=== PATIENT | female | born 1990 | race Caucasian/White ===

== ENCOUNTER → 2018-02-07 16:49 | Outpatient (CLI) | payer MEDICAID, SELFPAY ==
[2018-02-07 17:50] LABS: Absolute Lymphocyte Count 1.96 X10^3/ul (0.83-4.51); Absolute Neutrophil Count 5.4 X10^3/uL (2.0-7.7); Basophil# 0.02 X10^3/uL; Basophil% 0.2 % (0-1); Eosinophil# 0.11 X10^3/uL; Eosinophils% 1.4 % (0-5); Hematocrit 38.5 % (37-47); Hemoglobin 13.7 g/dl (12.0-15.0); Lymphocyte # 1.96 X10^3/ul (4.0); Lymphocyte % 24.4 % (19-41); Mean Corp Hgb Conc 35.6 g/gl (32-36); Mean Corpuscular Hgb 31.5 pg (27.0-32.0); Mean Corpuscular Volume 88.5 fL (81-99); Mean Platelet Vol. 9.9 fl (6.2-12.0); Monocyte# 0.58 X10^3/uL; Monocyte% 7.2 % (0-10); Neutrophil # 5.35 X10^3/uL (2.7-7.7); Neutrophil % 66.7 % (47-70); Platelet Count 344 K/mm3 (150-450); RBC Distribution Width CV 12.2 % (11.6-14.6); RBC Distribution Width SD 38.3 fl (35.1-43.9); Red Blood Count 4.35 M/mm3 (4.2-5.4)
[2018-02-07 17:52] LABS: POSITIVE COUNT NO; POSITIVE DIFFERENTIAL NO; POSITIVE MORPHOLOGY NO
[2018-02-07 18:59] LABS: HIV - WCH Non-Reactive (Nonreactive)
[2018-02-07 21:35] LABS: Chlamydia Trachomatis by PCR Negative (Negative); Neisserai gonorrhoeae by PCR Negative (Negative); Probe Check PASS; Sample Adequacy Control PASS; Specimen Processing Control PASS
[2018-02-10 01:17] LABS: Rapid Plasmin Reagin (RPR) NONREACTIVE (NONREACTIVE)
[2018-02-10 09:30] LABS: HEPATITIS B SURFACE AG Negative (Negative)
[2018-02-14 13:12] LABS: HPV Reflexed? NOT INDICATED
== END ==
PROVIDERS: Family Provider Family Medicine; PCP Family Medicine; Referring Provider Obstetrics & Gynecology; Visit Provider Obstetrics & Gynecology
DX: Z12.4 Encounter for screening for malignant neoplasm of cervix (principal)
CPT/HCPCS: 36415; 85025; 86592; 86703; 86762; 86850; 86900; 87086; 87088; 87340; 87491; 87591; 88175; G0145

== ENCOUNTER → 2018-03-13 16:43 | Outpatient (CLI) | payer MEDICAID, SELFPAY | PROVIDERS: Family Provider Family Medicine; PCP Family Medicine; Referring Provider Obstetrics & Gynecology; Visit Provider Obstetrics & Gynecology | DX: Z34.90 Encounter for supervision of normal pregnancy, unspecified, unspecified trimester (principal) | CPT/HCPCS: 87086; 87088 ==

== ENCOUNTER 2018-06-09 15:45 | Outpatient (CLI) | payer MEDICAID, SELFPAY ==
[2018-05-31 08:52] VITALS: BMI 25.1
[2018-06-09 15:59] VITALS: BMI 27.2
[2018-06-09 16:14] LABS: Bacteria 0 SEEN /hpf (None Seen); Mucous, Urine 0 SEEN /hpf (<or=2+); White Blood Cells 0 SEEN /hpf (0-5)
[2018-06-09 16:20] LABS: Color, Urine Yellow (Yellow); Glucose, Dipstick Normal (Normal); Ketone-Dipstick Negative (Negative); Leukocyte Esterase-Dipstick Negative /ul (Negative); Nitrite-Dipstick Negative (Negative); Occult Blood-Urine 10 /ul (Negative); Protein-Dipstick Negative (Negative); Urine Bilirubin Dipstick Negative (Negative); Urine Clarity Clear (Clear); Urine Urobilinogen Normal (Normal); Urine pH 6.5 (5.0 - 8.0)
[2018-06-09 16:56] LABS: Hematocrit 36.1 % (37-47); Hemoglobin 12.9 g/dl (12.0-15.0); Mean Corp Hgb Conc 35.7 g/gl (32-36); Mean Corpuscular Hgb 32.6 pg (27.0-32.0); Mean Corpuscular Volume 91.2 fL (81-99); Mean Platelet Vol. 9.7 fl (6.2-12.0); Platelet Count 270 K/mm3 (150-450); RBC Distribution Width CV 13.1 % (11.6-14.6); RBC Distribution Width SD 42.3 fl (35.1-43.9); Red Blood Count 3.96 M/mm3 (4.2-5.4); White Blood Count 9.6 K/mm3 (4.4-11.0)
[2018-06-09 17:08] LABS: Scan Indicated on CBC? Y/N NO
[2018-06-09 17:18] LABS: ALB/GLOB Ratio 0.9 RATIO (0.9-2.4); AST(SGOT) 13 U/L (15-37); Alanine Aminotransfer ALT/SGPT 20 U/L (13-56); Albumin, Serum 3.1 g/dL (3.2-5.0); Alkaline Phosphatase 69 U/L (45-117); Anion Gap 9 (5-15); BUN 5 mg/dL (7-18); BUN/Creat Ratio 14.6 RATIO (10-20); Calcium,Total 8.3 mg/dL (8.5-10.1); Chloride 109 mmol/L (98-107); Creatinine, Serum 0.34 mg/dL (0.55-1.02); EST Glomerular Filtration Rate 241 mL/min (>60); Est Glom Filt Rate - Afr Amer 292 mL/min (>60); Estimated Creatinine Clearance 239.56 ml/min; Globulin 3.5 g/dL (2.2-4.2); Glucose 79 mg/dL (74-106); Potassium 3.6 mmol/L (3.5-5.1); Protein, Total 6.6 g/dL (6.4-8.2); Sodium Level 139 mmol/L (136-145)
[2018-06-09 17:29] LABS: Red Blood Cells-Urine 0-5 SEEN /hpf (0-5); Squamous Epithelial Cells - UA 0-5 SEEN /hpf (5-10)
--- NOTE | 2018-06-14 00:36 | OB.TRI.HP_ITS ---
- Problem List (1) Threatened labor Status: Acute History of Present Illness Date of Service: 06/09/18 Was patient seen by the physician?: No Reason For Visit: FALL History of Present Illness: threatened labor Allergies No Known Allergies Allergy (Verified 05/12/18 09:05) - Pertinent Past Medical History Surgical History: Past Surgical History (Last Reviewed 05/31/18 @ 08:52 by Sandra Schwartz) Hx of foot surgery Laboratory Studies: Laboratory Tests 06/09/18 06/09/18 06/09/18 Range/Units 16:45 16:45 15:55 WBC 9.6 (4.4-11.0) K/mm3 RBC 3.96 L (4.2-5.4) M/mm3 Hgb 12.9 (12.0-15.0) g/dl Hct 36.1 L (37-47) % MCV 91.2 (81-99) fL MCH 32.6 H (27.0-32.0) pg MCHC 35.7 (32-36) g/gl RDW 13.1 (11.6-14.6) % RDW Differential 42.3 (35.1-43.9) fl Plt Count 270 (150-450) K/mm3 MPV 9.7 (6.2-12.0) fl Sodium 139 (136-145) mmol/L Potassium 3.6 (3.5-5.1) mmol/L Chloride 109 H (98-107) mmol/L Carbon Dioxide 21.0 (21.0-32.0) mmol/L Anion Gap 9 (5-15) BUN 5 L (7-18) mg/dL Creatinine 0.34 L (0.55-1.02) mg/dL Estim Creat Clear Calc 239.56 ml/min Est GFR (MDRD) Af Amer 292 (>60) mL/min Est GFR (MDRD) Non-Af 241 (>60) mL/min BUN/Creatinine Ratio 14.6 (10-20) RATIO Glucose 79 (74-106) mg/dL Calcium 8.3 L (8.5-10.1) mg/dL Total Bilirubin 0.30 (0.20-1.00) mg/dL AST 13 L (15-37) U/L ALT 20 (13-56) U/L Alkaline Phosphatase 69 (45-117) U/L Total Protein 6.6 (6.4-8.2) g/dL Albumin 3.1 L (3.2-5.0) g/dL Globulin 3.5 (2.2-4.2) g/dL Albumin/Globulin Ratio 0.9 (0.9-2.4) RATIO Urine Color Yellow (Yellow) Urine Clarity Clear (Clear) Urine pH 6.5 (5.0 - 8.0) Ur Specific [place] 1.010 (1.002-1.030) Urine Protein Negative (Negative) mg/dl Urine Glucose (UA) Normal (Normal) mg/dl Urine Ketones Negative (Negative) mg/dl Urine Occult Blood 10 H (Negative) /ul Urine Nitrite Negative (Negative) Urine Bilirubin Negative (Negative) mg/dL Urine Urobilinogen Normal (Normal) mg/dl Ur Leukocyte Esterase Negative (Negative) /ul Urine RBC 0-5 SEEN (0-5) /hpf Urine WBC 0 SEEN (0-5) /hpf Ur Squamous Epith Cells 0-5 SEEN (5-10) /hpf Urine Bacteria 0 SEEN (None Seen) /hpf Urine Mucus 0 SEEN (<or=2+) /hpf NST - FHR Rate Baby A Baseline: 140 Variability:: Moderate Accelerations:: 10 x 10 Decelerations:: None NST Reactive:: Yes, Appropriate for gestational age FHR Category:: Category I Uterine Activity:: no regular Impression/Plan s/p fall threatened labor reassuring stable dc home
== END 2018-06-09 17:47 | disposition home or self-care (01) ==
LOC: WPOUT 15:52 → WP 15:52
PROVIDERS: Family Provider Family Medicine; PCP Family Medicine; Referring Provider Obstetrics & Gynecology; Visit Provider Obstetrics & Gynecology
DX: O60.00 Preterm labor without delivery, unspecified trimester (principal); Z3A.00 Weeks of gestation of pregnancy not specified; Z91.81 History of falling
CPT/HCPCS: 36415; 59025; 59050; 80053; 81001; 85027; 87086; 87088; 99218; G0378

== ENCOUNTER → 2018-07-05 10:14 | Outpatient (CLI) | payer MEDICAID, SELFPAY ==
[2018-07-05 09:51] VITALS: BMI 27.2
[2018-07-05 10:49] LABS: Absolute Lymphocyte Count 1.77 X10^3/ul (0.83-4.51); Absolute Neutrophil Count 6.6 X10^3/uL (2.0-7.7); Basophil# 0.01 X10^3/uL; Basophil% 0.1 % (0-1); Eosinophil# 0.11 X10^3/uL; Eosinophils% 1.2 % (0-5); Hematocrit 36.5 % (37-47); Hemoglobin 12.6 g/dl (12.0-15.0); Lymphocyte # 1.77 X10^3/ul (4.0); Lymphocyte % 19.6 % (19-41); Mean Corp Hgb Conc 34.5 g/gl (32-36); Mean Corpuscular Hgb 32.1 pg (27.0-32.0); Mean Corpuscular Volume 93.1 fL (81-99); Mean Platelet Vol. 9.8 fl (6.2-12.0); Monocyte# 0.49 X10^3/uL; Monocyte% 5.4 % (0-10); Neutrophil # 6.63 X10^3/uL (2.7-7.7); Neutrophil % 73.3 % (47-70); POSITIVE COUNT NO; POSITIVE DIFFERENTIAL NO; POSITIVE MORPHOLOGY NO; Platelet Count 239 K/mm3 (150-450); RBC Distribution Width CV 13.7 % (11.6-14.6); Red Blood Count 3.92 M/mm3 (4.2-5.4); White Blood Count 9.1 K/mm3 (4.4-11.0)
[2018-07-05 11:06] LABS: Glucose Challenge Gest 1H 50g 131 mg/dL (70-140)
== END ==
PROVIDERS: Family Provider Family Medicine; PCP Family Medicine; Referring Provider Obstetrics & Gynecology; Visit Provider Obstetrics & Gynecology
DX: Z34.90 Encounter for supervision of normal pregnancy, unspecified, unspecified trimester (principal)
CPT/HCPCS: 36415; 82950; 85025

== ENCOUNTER → 2018-08-29 18:07 | Outpatient (CLI) | payer MEDICAID, SELFPAY ==
[2018-08-29 08:41] VITALS: BMI 29.6
== END ==
PROVIDERS: Family Provider Family Medicine; PCP Family Medicine; Visit Provider Obstetrics & Gynecology
DX: Z34.03 Encounter for supervision of normal first pregnancy, third trimester (principal)
CPT/HCPCS: 87081

== ENCOUNTER 2018-09-15 21:40 | Outpatient (CLI) | payer MEDICAID, SELFPAY ==
[2018-09-12 08:54] VITALS: BMI 29.6
[2018-09-15 21:40] VITALS: BMI 29.7
--- NOTE | 2018-09-16 08:22 | OB.TRI.NOTE ---
History of Present Illness Date of Service: 09/15/18 Was patient seen by the physician?: No Reason For Visit: R/O LABOR Date of Service: 09/15/18 Final KIMBERLY: 09/19/18 Final KIMBERLY Source: US <20 weeks Gestational age: 39 Weeks and 4 Days History of Present Illness: Complaints of contractions. No signs of SROM. No bleeding. Good movement. 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 NST reassuring. Discharged and to return if contractions increase in intensity or has signs of SROM.
--- NOTE | 2018-09-16 08:25 | OB.TRI.HP_ITS ---
History of Present Illness Date of Service: 09/15/18 Was patient seen by the physician?: No Reason For Visit: R/O LABOR Date of Service: 09/15/18 Final KIMBERLY: 09/19/18 Final KIMBERLY Source: US <20 weeks Gestational age: 39 Weeks and 4 Days History of Present Illness: Complaints of contractions. No signs of SROM. No bleeding. Good movement. 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 NST reassuring. Discharged and to return if contractions increase in intensity or has signs of SROM.
== END 2018-09-15 23:40 | disposition home or self-care (01) ==
LOC: WPOUT 22:15 → OBT 22:17
PROVIDERS: Family Provider Family Medicine; PCP Family Medicine; Referring Provider Obstetrics & Gynecology; Visit Provider Obstetrics & Gynecology
DX: O26.893 Other specified pregnancy related conditions, third trimester (principal); N85.8 Other specified noninflammatory disorders of uterus; Z3A.39 39 weeks gestation of pregnancy
CPT/HCPCS: 59025; 59050; 99218; G0378

== ENCOUNTER 2018-09-17 01:55 | Inpatient (IN) | payer MEDICAID, SELFPAY ==
[2018-08-01 09:00] VITALS: BMI 27.2
[2018-09-17 02:22] VITALS: BMI 29.3
[2018-09-17] MEDS: Lactated Ringers 1,000 ML 50 ML IV ×2 (02:30→04:44)
[2018-09-17 02:54] LABS: Absolute Lymphocyte Count 1.72 X10^3/ul (0.83-4.51); Basophil# 0.02 X10^3/uL; Basophil% 0.1 % (0-1); Eosinophil# 0.08 X10^3/uL; Eosinophils% 0.5 % (0-5); Hematocrit 40.8 % (37-47); Hemoglobin 14.7 g/dl (12.0-15.0); Lymphocyte # 1.72 X10^3/ul (4.0); Lymphocyte % 10.3 % (19-41); Mean Corpuscular Volume 91.7 fL (81-99); Mean Platelet Vol. 10.6 fl (6.2-12.0); Monocyte# 0.87 X10^3/uL; Monocyte% 5.2 % (0-10); Neutrophil # 14.01 X10^3/uL (2.7-7.7); Neutrophil % 83.6 % (47-70); Platelet Count 277 K/mm3 (150-450); RBC Distribution Width CV 13.4 % (11.6-14.6); RBC Distribution Width SD 44.4 fl (35.1-43.9); Red Blood Count 4.45 M/mm3 (4.2-5.4); White Blood Count 16.8 K/mm3 (4.4-11.0)
[2018-09-17 02:56] LABS: POSITIVE COUNT NO; POSITIVE DIFFERENTIAL NO; POSITIVE MORPHOLOGY NO
--- NOTE | 2018-09-17 03:51 | PCM.HP.STD ---
Problem List (1) Active labor at term Status: Acute History of Present Illness Date of Admission: 09/17/18 Chief Complaint: Contractions The patient is a 28 year old F [admitted in active labor. Uncomplicated . GBS negative. 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 Lives: Spouse/ Significant Other Smoking Status: Former smoker Tobacco Use: Non-smoker Alcohol: None Drugs: None - *Family History Maternal Family History: Family History (Last Reviewed 09/12/18 @ 08:42 by Carmelina Schwartz) Mother Cancer Grandfather Heart disease Hypertension Paternal Family History: Family History (Last Reviewed 09/12/18 @ 08:42 by Carmelina Schwartz) Mother Cancer Grandfather Heart disease Hypertension Review of Systems Constitutional: Denies: Chills, Fever Cardiovascular: Denies: Chest Tightness Respiratory: Denies: Shortness of Breath Gastrointestinal: Denies: Abdominal Pain, Constipation, Diarrhea Genitourinary: Denies: Dysuria VTE Information - Inpt Only VTE Present on Admission: No Patient Problems: Active and Suspected Problems (Last Reviewed 09/12/18 @ 08:42 by Carmelina Schwartz) Active labor at term (Acute) Subjective: Uncomfortable with contractions. Objective: Afeb VSS CAT 1 FHR tracing - Physical Exam General: Alert, Oriented x3, Cooperative, No apparent distress Lungs: Clear to auscultation, Normal air movement Cardiovascular: Regular rate, Regular Rhythm Abdomen: Soft, Non Tender, Non-Distended, Gravid, Appropriate for Gestational Age Extremities: No edema Skin: No rashes Neurological: Neuro grossly intact Psych/Mental Status: Normal Affect Comment: CE 9cm 90 -1 Weight: 187 lb 9.814 oz Body Mass Index (BMI) 29.3 Laboratory Tests Past 24 Hrs 09/17/18 09/17/18 02:40 02:40 WBC 16.8 H RBC 4.45 Hgb 14.7 Hct 40.8 MCV 91.7 MCH 33.0 H MCHC 36.0 RDW 13.4 RDW Differential 44.4 H Plt Count 277 MPV 10.6 Immature Gran % (Auto) 0.300 Neut % (Auto) 83.6 H Lymph % (Auto) 10.3 L [place] % (Auto) 5.2 Eos % (Auto) 0.5 Baso % (Auto) 0.1 Absolute Neuts (auto) 14.0 H Absolute Lymphs (auto) 1.72 Total Counted Not Reportable Blood Type Pending Antibody Screen Pending Assessment/Plan All Active Problems (Last Reviewed 09/12/18 @ 08:42 by Carmelina Schwartz) Active labor at term (Acute) Supervision of normal (Acute) (Acute) Threatened labor (Resolved) Active labor at term (39w5d ega). AROM was performed with clear fluid noted. GBS negative. Reassuring FHR tracing. Expect .
--- NOTE | 2018-09-17 03:57 | HP.PCM_ITS ---
Problem List (1) Active labor at term Status: Acute History of Present Illness Date of Admission: 09/17/18 Chief Complaint: Contractions The patient is a 28 year old F [admitted in active labor. Uncomplicated . GBS negative. 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 Lives: Spouse/ Significant Other Smoking Status: Former smoker Tobacco Use: Non-smoker Alcohol: None Drugs: None - *Family History Maternal Family History: Family History (Last Reviewed 09/12/18 @ 08:42 by Carmelina Schwartz) Mother Cancer Grandfather Heart disease Hypertension Paternal Family History: Family History (Last Reviewed 09/12/18 @ 08:42 by Carmelina Schwartz) Mother Cancer Grandfather Heart disease Hypertension Review of Systems Constitutional: Denies: Chills, Fever Cardiovascular: Denies: Chest Tightness Respiratory: Denies: Shortness of Breath Gastrointestinal: Denies: Abdominal Pain, Constipation, Diarrhea Genitourinary: Denies: Dysuria VTE Information - Inpt Only VTE Present on Admission: No Patient Problems: Active and Suspected Problems (Last Reviewed 09/12/18 @ 08:42 by Carmelina Schwartz) Active labor at term (Acute) Subjective: Uncomfortable with contractions. Objective: Afeb VSS CAT 1 FHR tracing - Physical Exam General: Alert, Oriented x3, Cooperative, No apparent distress Lungs: Clear to auscultation, Normal air movement Cardiovascular: Regular rate, Regular Rhythm Abdomen: Soft, Non Tender, Non-Distended, Gravid, Appropriate for Gestational Age Extremities: No edema Skin: No rashes Neurological: Neuro grossly intact Psych/Mental Status: Normal Affect Comment: CE 9cm 90 -1 Weight: 187 lb 9.814 oz Body Mass Index (BMI) 29.3 Laboratory Tests Past 24 Hrs 09/17/18 09/17/18 02:40 02:40 WBC 16.8 H RBC 4.45 Hgb 14.7 Hct 40.8 MCV 91.7 MCH 33.0 H MCHC 36.0 RDW 13.4 RDW Differential 44.4 H Plt Count 277 MPV 10.6 Immature Gran % (Auto) 0.300 Neut % (Auto) 83.6 H Lymph % (Auto) 10.3 L [place] % (Auto) 5.2 Eos % (Auto) 0.5 Baso % (Auto) 0.1 Absolute Neuts (auto) 14.0 H Absolute Lymphs (auto) 1.72 Total Counted Not Reportable Blood Type Pending Antibody Screen Pending Assessment/Plan All Active Problems (Last Reviewed 09/12/18 @ 08:42 by Carmelina Schwartz) Active labor at term (Acute) Supervision of normal (Acute) (Acute) Threatened labor (Resolved) Active labor at term (39w5d ega). AROM was performed with clear fluid noted. GBS negative. Reassuring FHR tracing. Expect .
--- NOTE | 2018-09-17 04:00 | DCINST_ITS ---
Discharge Diet: No Restrictions Discharge Activity: Return to Normal Activity, No Restrictions, May Drive, May Shower Return to work on:: 11/06/18 May shower in (days): 0 May resume sexual activity in: 6 weeks Call your doctor if your incision/area has: Sudden Increased Bleeding, Foul Smelling Discharge Call your doctor if you observe: Fever of 101 or Higher, Inability to urinate, Inability to have a bowel movement, Using more than one pad per hour, Shortness of breath, Chest pain, Calf discomfort, Uncontrolled pain Cleanse incision/area with: Soap & Water Additional Instructions: If you experience any of the following, contact your healthcare provider. * Bleeding that soaks a pad every hour for 2 hours * Fever 100.4 or higher * Unrelieved incision or abdominal pain * Swelling, redness, discharge or bleeding from your incision or episiotomy site * Your incision begins to separate * Problems urinating (including inability to urinate or burning while urinating). * Visual changes * Severe headache * Flu-like symptoms * Pain or redness in one of both of your breasts * Pain, warmth, tenderness or swelling in your legs, especially the calf area * Frequent nausea and vomiting * Symptoms of depression or anxiety If you experience any of the following, call 911 or go to the nearest Emergency Room. * Chest pain * Problems breathing * Seizure activity * Partial or complete paralysis of a body part, slurred speech, weakness or drooping of the face, or a sudden inability to walk or hold your balance Allergies/Adverse Reactions: Allergies No Known Allergies Allergy (Verified 09/15/18 22:28) Medications to take at Discharge vitamin,calcium,rilrwhdf-ednn-zapsj acid tablet 1 tab PO DAILY 02/07/18 Ibuprofen 600 mg PO 4X/DAY #30 tab 09/17/18 The following prescriptions were given: Ibuprofen 600 mg PO 4X/DAY #30 tab Please Follow Up With: Alix Wisdom MD When: 6 weeks Primary Care Physician: Ángel Bolanos MD [Primary Care Provider] - Test Results: Test results from this visit will be discussed in further detail at your follow- up appointment, if applicable. Proposed Discharge Date: 09/19/18
[2018-09-17] MEDS: Oxytocin 10 UNITS/ML Vial IM (05:38)
--- NOTE | 2018-09-17 05:49 | PCM.OPRPT ---
Problem List (1) Active labor at term Status: Acute Vaginal Delivery Maternal Presentation: Active Labor 39w5d ega with active labor uncomplicated Amniotic Membrane Rupture Type: Artificial Rupture of Membrane time: 034 Amniotic Fluid Description: Clear Final KIMBERLY: 09/19/18 Final KIMBERLY Source: US <20 weeks Gestational age: 39 Weeks and 5 Days Date of Procedure: 09/17/18 Pre-Operative Diagnosis: Labor Post-Operative Diagnosis: same Surgery/ Procedure Performed: Spontaneous Vaginal Delivery Type of Anesthesia: None Description of Procedure: Progressed to FD then pushed for about one hour to deliver a live male without complication. There was a loose nuchal cord that was reduced at delivery. After delivery the mouth was suctioned. Delayed cord clamping was employed. The cord was clamped and cut. The placenta delivered spontaneously intact with a centrally located 3VC. The uterus contracted well. Inspection revealed a small posterior vaginal first degree tear. This was repaired under local anesthetic with 2-0 Vicryl. Presentation: Vertex Placental Delivery Description: Spontaneous Placenta Disposition: [facility] Percentage of Placenta Abruption: 0 Cord Vessel Description: 3 Vessels Nuchal Cord Compression: Without compression Cord Entanglement: Around neck x 1, loose Estimated Blood Loss: 200cc Infant A gender: Male (1 minute): 9 (5 minute): 9 Episiotomy Description: None Laceration: Midline, Vaginal Extension/lac, 1st degree Medications given after delivery: IV Pitocin Complications: None
[2018-09-17] MEDS: Ibuprofen 600 MG Tablet PO ×3 (06:16→20:25)
[2018-09-17 11:59] VITALS: BP 123/69; PULSE 111; RESP 16; TEMP 36.9; O2SAT 97
[2018-09-17 16:24] VITALS: BP 130/73; PULSE 109; RESP 16; TEMP 36.7; O2SAT 96
[2018-09-17] MEDS: Acetaminophen 500 MG Tablet 1000 MG PO (16:30)
[2018-09-17] MEDS: Prenatal Vits Tablet 1 TABLET PO (16:30)
[2018-09-17 20:26] VITALS: BP 135/79; PULSE 94; RESP 18; TEMP 36.6
[2018-09-17 23:48] VITALS: BP 128/73; PULSE 105; RESP 17; TEMP 36.7; O2SAT 97
[2018-09-18] MEDS: Ibuprofen 600 MG Tablet PO ×3 (03:24→17:18)
[2018-09-18] MEDS: Senna/Docusate Sodium 1 Tablet PO (03:24)
[2018-09-18 03:27] VITALS: BP 122/74; PULSE 82; RESP 15; TEMP 36.3; O2SAT 97
[2018-09-18 07:02] LABS: Hematocrit 36.2 % (37-47); Hemoglobin 12.5 g/dl (12.0-15.0); Mean Corp Hgb Conc 34.5 g/gl (32-36); Mean Corpuscular Hgb 32.3 pg (27.0-32.0); Mean Corpuscular Volume 93.5 fL (81-99); Mean Platelet Vol. 10.1 fl (6.2-12.0); Platelet Count 234 K/mm3 (150-450); RBC Distribution Width CV 13.6 % (11.6-14.6); RBC Distribution Width SD 46.4 fl (35.1-43.9); Red Blood Count 3.87 M/mm3 (4.2-5.4); Scan Indicated on CBC? Y/N NO; White Blood Count 11.6 K/mm3 (4.4-11.0)
[2018-09-18 08:30] VITALS: BP 127/80; PULSE 84; RESP 16; TEMP 36.5
[2018-09-18] MEDS: Prenatal Vits Tablet 1 TABLET PO (09:30)
[2018-09-18 14:00] VITALS: BP 127/72; PULSE 83; RESP 18; TEMP 36.6
--- NOTE | 2018-09-18 15:28 | PCM.PN.OB ---
Patient Problems: Active and Suspected Problems (Last Reviewed 09/12/18 @ 08:42 by Carmelina Schwartz) Active labor at term (Acute) Subjective: Patient without complaints. Tolerating diet well. Breast-feeding going well. Wants to stay until tomorrow. - Physical Exam Vital Signs Temp Pulse Resp BP Pulse Ox 98 F 83 18 127/72 H 97 09/18/18 14:00 09/18/18 14:00 09/18/18 14:00 09/18/18 14:00 09/18/18 03:27 Oxygen Delivery Method Room Air Weight: 187 lb 9.814 oz Body Mass Index (BMI) 29.3 Intake and Output for Last 24 Hours 09/16/18 09/17/18 09/18/18 23:59 23:59 23:59 Intake Total 1999 / 1999 Output Total 1000 / 1000 Balance 1000 / 1000 Laboratory Tests Past 24 Hrs 09/18/18 06:45 WBC 11.6 H RBC 3.87 L Hgb 12.5 Hct 36.2 L MCV 93.5 MCH 32.3 H MCHC 34.5 RDW 13.6 RDW Differential 46.4 H Plt Count 234 MPV 10.1 Medical Necessity - Tobacco Use Smoking Status: Former smoker Tobacco Use: Non-smoker Assessment/Plan All Active Problems (Last Reviewed 09/12/18 @ 08:42 by Carmelina Schwartz) Active labor at term (Acute) Supervision of normal (Acute) (Acute) Threatened labor (Resolved) Doing well day #1 status post routine spontaneous vaginal delivery. Continuing present care.
[2018-09-18 20:45] VITALS: BP 114/81; PULSE 87; RESP 16; TEMP 37.1; O2SAT 96
[2018-09-19] MEDS: Acetaminophen 500 MG Tablet 1000 MG PO (00:12)
[2018-09-19 02:20] VITALS: BP 125/84; PULSE 76; RESP 16; TEMP 36.3; O2SAT 98
[2018-09-19] MEDS: Prenatal Vits Tablet 1 TABLET PO (09:13)
[2018-09-19] MEDS: Ibuprofen 600 MG Tablet PO (09:13)
[2018-09-19 09:35] VITALS: BP 138/86; PULSE 86; RESP 14; TEMP 36.6; O2SAT 96
--- NOTE | 2018-09-19 09:49 | PCM.PN.OB ---
Patient Problems: Active and Suspected Problems (Last Reviewed 09/12/18 @ 08:42 by Carmelina Schwartz) Active labor at term (Acute) Subjective: doing well no complaints pain controlled no CP SOB N V ambulating well tolerating po lochia moderate, going well - Physical Exam General: Alert, Oriented x3 Vital Signs Temp Pulse Resp BP Pulse Ox 97.8 F 86 14 138/86 H 96 09/19/18 09:35 09/19/18 09:35 09/19/18 09:35 09/19/18 09:35 09/19/18 09:35 Oxygen Delivery Method Room Air Weight: 187 lb 9.814 oz Body Mass Index (BMI) 29.3 Intake and Output for Last 24 Hours 09/17/18 09/18/18 09/19/18 23:59 23:59 23:59 Intake Total 1999 / 1999 Output Total 1000 / 1000 Balance 1000 / 1000 Medical Necessity - Tobacco Use Smoking Status: Former smoker Tobacco Use: Non-smoker Assessment/Plan All Active Problems (Last Reviewed 09/12/18 @ 08:42 by Carmelina Schwartz) Active labor at term (Acute) Supervision of normal (Acute) (Acute) Threatened labor (Resolved) s/p PPD # 2 1. routine post delivery care 2. breast feeding- support given 3. rh positive 4. rubella immune
--- NOTE | 2018-09-26 16:32 | NURSING ---
Mother doing well on follow up phone call. States Clarisse Adam was mike
== END 2018-09-19 11:05 | disposition home or self-care (01) | DRG 560 ==
PROVIDERS: Admitting Provider Obstetrics & Gynecology; Family Provider Family Medicine; PCP Family Medicine; Referring Provider Obstetrics & Gynecology; Visit Provider Obstetrics & Gynecology
DX: O70.0 First degree perineal laceration during delivery (principal); O69.81X0 Labor and delivery complicated by cord around neck, without compression, not applicable or unspecified; Z3A.39 39 weeks gestation of pregnancy; Z37.0 Single live birth
CPT/HCPCS: 59025; 59050; 85025; 85027; 86850; 86900; 99218; J7120; G0378

== ENCOUNTER 2018-12-04 04:02 | Observation (INO) | payer OTHER, MEDICAID, SELFPAY ==
[2018-11-01 14:59] VITALS: BMI 29.3
[2018-12-04 04:02] VITALS: BP 138/72; PULSE 91; RESP 18; TEMP 36.9; O2SAT 98; BMI 24.8
--- NOTE | 2018-12-04 04:27 | ED.VIS.GEN ---
History of Present Illness Chief Complaint: Abd Pain Informant: Patient Narrative: Patient stated for the last 2 days on and off she had right upper quadrant abdominal pain. She is also had nausea and vomiting. She is never had any problems like this before. Current severity is moderate. Worsened by eating. She had a baby 6 weeks ago. She is having no complications from that. She is no longer having any bleeding. She has no lower abdominal or vaginal type pain. No home treatment. Normal bowel movements. No urinary symptoms. It hurts to push on her right upper abdomen per patient. Past Medical History - Allergies and Home Meds Allergies/Adverse Reactions: Allergies No Known Allergies Allergy (Verified 11/01/18 14:39) Primary Care Physician: Ángel Bolanos MD [Primary Care Provider] - Prior records reviewed: Yes Past Medical History: - - Hyperthyroid Surgical History: no surgical history, noncontributory Smoking Status: Former smoker Alcohol: None Drugs: None Review of Systems General: Denies: Chills, Fever, Sweats Eyes: Denies: Visual changes - bilaterally, Diplopia ENT: Denies: Rhinorrhea, Sore throat Cardiovascular: Denies: Chest pain, Palpitations Respiratory: Denies: Dyspnea, Cough, Dyspnea on exertion Gastrointestinal: Reports: Abdominal pain, Nausea, Vomiting. Denies: Diarrhea, Melena, Hematochezia Genitourinary: Denies: Dysuria, Hematuria, Frequency Musculoskeletal: Denies: Back pain, Extremity Pain Skin: Denies: Rash, Wounds Neurological: Denies: Headache, Weakness, Numbness Physical Exam Vital Signs/Narrative: Vital Signs Temp Pulse Resp BP Pulse Ox 12/04/18 04:02 98.5 F 91 18 138/72 H 98 General: Well nourished, Well developed, No Acute Distress Head: Normocephalic, Atraumatic Eyes: Perrl, EOMI ENT: Moist mucous membranes, No rhinorrhea Neck: Supple, Nontender Cardiovascular: Regular rate, Regular rhythm, No murmurs Respiratory: No distress, CTA bilaterally, Chest nontender Abdomen: Soft, Nondistended, Normal bowel sounds, Tender - Tenderness in the right upper quadrant. No Rodrigues sign. Negative for: Nontender, Guarding, Rodrigues's sign Back: Nontender, Normal Inspection Extremities: Nontender, No edema Skin: Normal color, No rash Neurological: Alert, Oriented x3, Cranial nerves II-XII grossly intact, Normal Strength, Normal Sensation Psychological: Normal affect, Normal Mood Diagnostic/Tx/Re-eval - Medical Decision Making She given Toradol Zofran and IV fluids. Lab work obtained she felt better after treatment. Lab work is unremarkable. Patient will undergo an ultrasound in the a.m. This will be signed out to the a.m. physician for further evaluation. At this time I feel she has symptomatic cholelithiasis. ED Disposition - Plan for ED Patient: Referrals: Ángel Bolanos MD [Primary Care Provider] -
[2018-12-04] MEDS: Ondansetron 4 MG/2 ML Vial IV (04:33)
[2018-12-04] MEDS: 0.9% Normal Saline 1,000 ML 1000 ML IV (04:33)
[2018-12-04] MEDS: Ketorolac 30 MG/ML Syringe IV (04:33)
[2018-12-04 04:52] LABS: Absolute Lymphocyte Count 2.21 X10^3/uL (0.83-4.51); Absolute Neutrophil Count 5.8 X10^3/uL (2.0-7.7); Basophil# 0.02 X10^3/uL; Basophil% 0.2 % (0-1); Eosinophil# 0.15 X10^3/uL; Eosinophils% 1.7 % (0-5); Hematocrit 40.6 % (37-47); Hemoglobin 14.2 g/dL (12.0-15.0); Lymphocyte # 2.21 X10^3/ul (4.0); Lymphocyte % 24.9 % (19-41); Mean Corpuscular Hgb 30.6 pg (27.0-32.0); Mean Corpuscular Volume 87.5 fL (81-99); Monocyte# 0.66 X10^3/uL; Monocyte% 7.4 % (0-10); NRBC Flagged by Analyzer 0 % (0-5); Neutrophil # 5.79 X10^3/uL (2.7-7.7); Neutrophil % 65.5 % (47-70); Platelet Count 347 K/mm3 (150-450); RBC Distribution Width CV 11.7 % (11.6-14.6); RBC Distribution Width SD 37.2 fl (35.1-43.9); Red Blood Count 4.64 M/mm3 (4.2-5.4); White Blood Count 8.9 K/mm3 (4.4-11.0)
[2018-12-04 05:04] LABS: ALB/GLOB Ratio 1.2 RATIO (0.9-2.4); AST(SGOT) 45 U/L (15-37); Alanine Aminotransfer ALT/SGPT 39 U/L (13-56); Albumin, Serum 3.6 g/dL (3.2-5.0); Alkaline Phosphatase 76 U/L (45-117); Anion Gap 10 (5-15); BUN 12 mg/dL (7-18); BUN/Creat Ratio 21.2 RATIO (10-20); Calcium,Total 9.3 mg/dL (8.5-10.1); Chloride 106 mmol/L (98-107); Creatinine, Serum 0.57 mg/dL (0.55-1.02); EST Glomerular Filtration Rate 135 mL/min (>60); Est Glom Filt Rate - Afr Amer 163 mL/min (>60); Estimated Creatinine Clearance 142.89 ml/min; Globulin 3.1 g/dL (2.2-4.2); Glucose 93 mg/dL (74-106); Lipase 98 U/L (73-393); Potassium 3.9 mmol/L (3.5-5.1); Protein, Total 6.7 g/dL (6.4-8.2); Sodium Level 143 mmol/L (136-145)
--- NOTE | 2018-12-04 05:14 | US_ITS ---
STUDY: ABDOMINAL ULTRASOUND - RIGHT UPPER QUADRANT REASON FOR VISIT: Female, 28 years old. Right upper quadrant pain, nausea TECHNIQUE: Ultrasound evaluation of the right upper quadrant was performed with real-time and static llanos-scale imaging. TECHNICAL QUALITY: Adequate. COMPARISON: None. FINDINGS: Liver: The liver measures 16.3 cm. There is normal echogenicity of the liver. The bile ducts are within normal limits. There is hepatic color flow. The direction of portal flow is hepatopetal. There is no demonstrated mass lesion. Gallbladder: Normal distended gallbladder. The gallbladder wall measures 2 mm. There is a positive sonographic Rodrigues's sign. There is pericholecystic fluid. There is a solitary gallstone within the fundus of the gallbladder. Common Bile Duct (C.B.D.): The common bile duct measures 7 mm. Pancreas: Normal size of the head, body and tail of the pancreas. There is normal echogenicity of the pancreas. There is no demonstrated pancreatic mass or cyst. Right Kidney: Normal size of the right kidney. The right kidney measures 11.5 x 5.8 x 4.0 cm. Normal renal cortex. The right cortex measures 1. cm. There is no demonstrated renal mass or cyst. There is no right hydronephrosis. 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 Findings are suspicious for cholecystitis. Surgical consultation recommended along with lab correlation Remaining solid organs of the right upper quadrant are unremarkable Electronically Signed: Jase Galeana MD at 7:45 EDT , Service support ,
[2018-12-04 06:27] VITALS: BP 109/60; PULSE 85; RESP 18; O2SAT 96
--- NOTE | 2018-12-04 07:57 | ED.DCSUM_ITS ---
- ER Visit Summary Date of Service: 12/04/18 Chief Complaint: [Addendum to initial dictation] History of Present Illness: The patient is a 28 F [presented to the emergency department with abdominal pain and was seen by Dr. Giorgi Cantu who returned the patient over to me awaiting results of ultrasound of the right upper quadrant. Patient had pain after eating and describes pain underneath her right ribs. Patient delivered a baby 2-1/2 months ago.] Physical Examination: [] Test Results: [Ultrasound shows cholelithiasis with gallbladder wall thickening, pericholecystic fluid, biliary dilatation, and positive Rodrigues sign. Findings are suspicious for cholecystitis. Surgical consultation recommended.] Emergency Department Course and Treatment: [Patient currently rates her pain a 2 out of 10. Patient case was discussed with surgeon on-call Dr. Sd Mathews who will present to the emergency department to evaluate patient.] Treatment Plan: [Admit for surgical intervention] Disposition: [Admit] Impression: [Abdominal pain Cholecystitis] This note was generated with [employer] dictation software. It may contain incorrect words, spelling, and punctuation that were not noted in review of the chart prior to signing ED Disposition - Plan for ED Patient: Referrals: Ángel Bolanos MD [Primary Care Provider] -
--- NOTE | 2018-12-04 08:47 | NURSING ---
MED SURG OBS ABD PAIN, CHOLECYSTITIS CECE
[2018-12-04 09:15] VITALS: BMI 24.8
--- NOTE | 2018-12-04 09:21 | PCM.HP.STD ---
Problem List (1) Acute calculous cholecystitis Status: Acute History of Present Illness Date of Admission: 12/04/18 Chief Complaint: Right upper quadrant pain, nausea, vomiting The patient is a 28 year old F who presented with 5 day history of intermittent right upper quadrant pain. Patient stated she had intermittent RUQ pain since Tuesday last week. She noted around 2:30 pm on Tuesday she started having nausea and vomiting an hour after eating a deli sandwich, chips, and cupcakes. Patient also noted having RUQ pain. She noted after several hours this had resolved. She noted on Tuesday she ate breakfast and lunch and around 2:30 pm yesterday she had similar symptoms of RUQ pain. She noted abdominal pain continued intermittently. Patient noted she went to sleep around 9:00 pm and woke up around 2:00 AM with nausea, vomiting and abdominal pain in the RUQ. She then proceeded to come to the ED. She denies change in bowel habits. She notes recently was diagnosed with hyperthyroidism and started treatment 1 week ago. She thought the medication was causing abdominal pain so she stopped. She is also taking and vitamin D daily. She recently had a baby 2 1/2 months ago. Delivery was uncomplicated vaginally. Patient is currently nursing. She denies previous abdominal surgeries. She notes history of foot surgery. She is a former smoker. RUQ u/s was obtained demonstrating cholelithiasis, wall thickening and pericholecystic fluid. WBC is 8.9 and liver enzymes all within normal range. 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 Lives: With Family Smoking Status: Former smoker Alcohol: None Drugs: None - *Family History Maternal Family History: Family History (Last Reviewed 12/04/18 @ 09:42 by Barby Tobin PA-C) Mother Cancer Grandfather Heart disease Hypertension History Items: No pertinent history Paternal Family History: Family History (Last Reviewed 12/04/18 @ 09:42 by Barby Tobin PA-C) Mother Cancer Grandfather Heart disease Hypertension History Items: No pertinent history Review of Systems Constitutional: Reports: Anorexia HEENT: Denies: Head Aches, Sinus Congestion, Sinus Drainage Cardiovascular: Denies: Chest Pain, Palpitations Respiratory: Denies: Cough, Shortness of breath at rest, Sputum production Gastrointestinal: Reports: Abdominal Pain, Nausea, Vomiting Genitourinary: Denies: Dysuria Musculoskeletal: Denies: Joint Pain, Joint Tenderness Skin: Denies: Rash, Wounds Neurological: Denies: Numbness, Tingling, Focal weakness Psychiatric: Denies: Anxiety, Depression, Homicidal Ideations, Suicidal Ideations Hematologic/ Lymphatic: Denies: Easy Bruising, Easy Bleeding VTE Information - Inpt Only VTE Present on Admission: Yes Patient Problems: Active and Suspected Problems (Last Reviewed 11/01/18 @ 14:39 by Flori Lackey) Acute calculous cholecystitis (Acute) - Physical Exam General: Alert, Oriented x3, Cooperative HEENT: Atraumatic, PERRLA, EOMI, Normocephalic Neck: Supple, No JVD, Negative Carotid Bruits Lungs: Clear to auscultation, Normal air movement Cardiovascular: Regular rate, No murmurs Abdomen: Soft, Hypoactive Bowel Sounds, Tender - RUQ Extremities: No edema, Capillary Refill Less than 3 Seconds Skin: No rashes, No breakdown Musculoskeletal: No Tenderness to Palpation of Joints or Extremities Neurological: Neuro grossly intact Psych/Mental Status: Normal Affect, Appropriate Vital Signs Temp Pulse Resp BP Pulse Ox 98.5 F 85 18 109/60 96 12/04/18 04:02 12/04/18 06:27 12/04/18 06:27 12/04/18 06:27 12/04/18 06:27 Oxygen Delivery Method Room Air Weight: 158 lb 8.198 oz Body Mass Index (BMI) 24.8 Laboratory Tests Past 24 Hrs 12/04/18 12/04/18 04:07 04:07 WBC 8.9 RBC 4.64 Hgb 14.2 Hct 40.6 MCV 87.5 MCH 30.6 MCHC 35.0 RDW Std Deviation 37.2 RDW Coeff of Nick 11.7 Plt Count 347 MPV 10.0 Immature Gran % (Auto) 0.300 Neut % (Auto) 65.5 Lymph % (Auto) 24.9 [place] % (Auto) 7.4 Eos % (Auto) 1.7 Baso % (Auto) 0.2 Absolute Neuts (auto) 5.8 Absolute Lymphs (auto) 2.21 Absolute Nucleated RBC 0.00 Nucleated RBC % 0 Sodium 143 Potassium 3.9 Chloride 106 Carbon Dioxide 27.0 Anion Gap 10 BUN 12 Creatinine 0.57 Estim Creat Clear Calc 142.89 Est GFR (MDRD) Af Amer 163 Est GFR (MDRD) Non-Af 135 BUN/Creatinine Ratio 21.2 H Glucose 93 Calcium 9.3 Total Bilirubin 0.60 AST 45 H ALT 39 Alkaline Phosphatase 76 Total Protein 6.7 Albumin 3.6 Globulin 3.1 Albumin/Globulin Ratio 1.2 Lipase 98 Assessment/Plan All Active Problems (Last Reviewed 11/01/18 @ 14:39 by Flori Lackey) Active labor at term (Acute) Acute calculous cholecystitis (Acute) Supervision of normal (Acute) (Acute) Threatened labor (Resolved) I am seeing this patient in conjunction with Dr. Mathews. Impression: Acute cholecystitis Plan: Patient has been discussed with Dr. Mathews. Admit patient. Dr. Mathews will plan to perform a laparoscopic cholecystectomy. Procedure will be scheduled for tomorrow afternoon. Procedure details, risks and benefits have been explained to the patient. Patient and her family have had the opportunity to ask and have questions answered. Patient verbally understands and agrees with the plan. Thank you for allowing us to participate in this patient's care. Code Visit Office Visits / Consults: [id number] IP Consult L3
[2018-12-04 09:35] VITALS: BP 121/58; PULSE 77; RESP 16; TEMP 36.6; O2SAT 100
[2018-12-04] MEDS: Lactated Ringers 1,000 ML 75 ML IV ×2 (10:53→22:35)
[2018-12-04 16:46] VITALS: BP 114/78; PULSE 77; RESP 16; TEMP 36.6; O2SAT 97
[2018-12-04 22:37] VITALS: BP 107/60; PULSE 97; RESP 16; TEMP 36.7; O2SAT 98
[2018-12-05] VITALS (11 sets, daily range): BP systolic 107–137; BP diastolic 48–92; PULSE 63–93; RESP 16–18; TEMP 36.4–36.8; O2SAT 92–100; BMI 24.8
[2018-12-05 06:03] LABS: Absolute Lymphocyte Count 2.15 X10^3/uL (0.83-4.51); Absolute Neutrophil Count 1.6 X10^3/uL (2.0-7.7); Basophil# 0.01 X10^3/uL; Basophil% 0.2 % (0-1); Eosinophil# 0.15 X10^3/uL; Eosinophils% 3.6 % (0-5); Hematocrit 34.4 % (37-47); Hemoglobin 11.8 g/dL (12.0-15.0); Lymphocyte # 2.15 X10^3/ul (4.0); Lymphocyte % 51.6 % (19-41); Mean Corp Hgb Conc 34.3 g/dL (32-36); Mean Corpuscular Hgb 29.8 pg (27.0-32.0); Mean Corpuscular Volume 86.9 fL (81-99); Mean Platelet Vol. 9.8 fl (6.2-12.0); Monocyte% 7.2 % (0-10); NRBC Flagged by Analyzer 0 % (0-5); Neutrophil # 1.55 X10^3/uL (2.7-7.7); Neutrophil % 37.2 % (47-70); Platelet Count 243 K/mm3 (150-450); RBC Distribution Width CV 11.7 % (11.6-14.6); Red Blood Count 3.96 M/mm3 (4.2-5.4); White Blood Count 4.2 K/mm3 (4.4-11.0)
[2018-12-05 06:18] LABS: ALB/GLOB Ratio 1.1 RATIO (0.9-2.4); AST(SGOT) 45 U/L (15-37); Alanine Aminotransfer ALT/SGPT 93 U/L (13-56); Alkaline Phosphatase 72 U/L (45-117); Anion Gap 7 (5-15); BUN 8 mg/dL (7-18); BUN/Creat Ratio 21.5 RATIO (10-20); Calcium,Total 8.8 mg/dL (8.5-10.1); Chloride 110 mmol/L (98-107); Creatinine, Serum 0.37 mg/dL (0.55-1.02); EST Glomerular Filtration Rate 219 mL/min (>60); Est Glom Filt Rate - Afr Amer 265 mL/min (>60); Estimated Creatinine Clearance 220.13 ml/min; Globulin 2.7 g/dL (2.2-4.2); Glucose 82 mg/dL (74-106); Potassium 3.8 mmol/L (3.5-5.1); Protein, Total 5.7 g/dL (6.4-8.2); Sodium Level 145 mmol/L (136-145)
[2018-12-05 07:04] LABS: Thyroid Stim Hormone (TSH) < 0.01 uIU/mL (0.358-3.74)
[2018-12-05 07:46] LABS: Internal QC Validated? YES +Cl - CLEAR BKGD; Pregnancy, Urine Negative Negative
--- NOTE | 2018-12-05 11:20 | NURSING ---
report called to surgery
--- NOTE | 2018-12-05 12:35 | GALL_PTH ---
PATIENT: PAM CASTRO LOC: MS3 U#:[id number] AGE/SX: 28/F ROOM: MS325 RE12/04/[address]: Dr. Sd Mathews MD : 1990 BED: 1 DIS: 12/05/2018 SPEC #: [id number] RECD: 12/06/18 07:54 STATUS: CHERYL REFuentes #: [id number] MAJO: 12/05/18 12:[address]: Sd Mathews DEPT: SURGICAL PATHOLOGY RECD BY: Alessandro Everett ENTERED: 12/06/18 11:14 SP TYPE: MONALISA OSEGUERA DR: Dr. Ángel Bolanos MD Tissues: Gallbladder, NOS Procedures: Surgery Specimen Level III HEADER OPERATION: Laparoscopic cholecystectomy PRE-OP DIAGNOSIS: Acute cholecystitis TISSUE SUBMITTED: Gallbladder MICROSCOPIC DIAGNOSIS Gallbladder, cholecystectomy: Chronic cholecystitis and cholelithiasis. A pericystic lymph node with reactive changes. SJ:rei 12/07/18 MICROSCOPIC DESCRIPTION Slides are reviewed. GROSS DESCRIPTION Received is one container labeled with the patient's name and designated gallbladder. The specimen consists of a gallbladder measuring 9 cm in length and up to 3 cm in diameter. The external surface is pink-adrian, smooth and glistening for the most part. Focally it is granular, hemorrhagic and contains cautery artifact. The gallbladder contains green-yellow mucoid bile and one ovoid, yellowish-brown stone at the fundus measuring 2 x 2 x 2 cm. The mucosa is bile-stained and without any mass lesions. The gallbladder wall measures up to 0.3 cm in thickness. Also present close to the cystic duct is an ovoid, adrian-pink nodule consistent with lymph node measuring 1 cm in greatest dimension. Drilling Foreman sections from the gallbladder and the cystic duct including one half of the lymph nodes are submitted in one cassette. / SJ:rei 12/06/18 TC:3 CPT: 98731
[2018-12-05] MEDS: Cefazolin 2 GM in 0.9% Normal Saline 100 ML IV (12:39)
--- NOTE | 2018-12-05 12:52 | OP.PCM_ITS ---
Problem List (1) Acute calculous cholecystitis Status: Acute Report of Operation Date of Procedure: 12/05/18 Pre-Operative Diagnosis: Acute calculus cholecystitis Post-Operative Diagnosis: Same Surgery/Procedure Performed:: Laparoscopic cholecystectomy Type of Anesthesia:: General Anesthesiologist: Noah Andujar Estimated Blood Loss (mL): < 25 cc Fluids Replaced: 600 cc LR Description of Procedure: Patient was brought in the operating room. Placed in the supine position. Under excellent general trach intubation the abdomen was sterilely prepped and draped in usual fashion. Local was injected infra umbilically. Dissection was carried down to the fascia. The fascia grasped with Bethesda. Varies needle was placed inside the abdomen. The abdomen was insufflated 15 torr. A 10/12 trocar was placed without difficulty. The patient was placed in head up and rotated to the left position. Subxiphoid #5 trocar was placed, and inferior to this another #5 trocar was placed, laterally a #5 trocar was placed. All these under direct visualization without injury to underlying structures. Fundus of the gallbladder was retracted in cephalad direction there is a slight tear near the falciform but no active bleeding was identified. I dissected out the cystic duct I placed hemoclips proximally and distally and ligated the duct identified the cystic artery placed hemoclips proximally distally and ligated the artery. Deliver the gallbladder from gallbladder bed with use of electrocautery there is no spillage of bile or stones. Irrigated the right upper quadrant good hemostasis was noted liver edge on the falciform looked stable and was not actively bleeding. Remove the trochars under direct visualization good hemostasis was noted close the fascia the umbilical port with a [id number]-[id number] of 0 Vicryl x2 skin incisions were closed with subcuticular stitches of 4-0 Monocryl Steri-Strips applied sterile dressings were applied the patient tolerated the procedure well. - Admit VTE Documentation VTE Present on Admission: No VTE Mechan Device Prophylaxis: SCD's VTE Pharm Prophylaxis ordered?: No Reason prophylaxis not ordered:: Treatment Not Indicated
[2018-12-05] MEDS: Bupivacaine Mpf 0.5% 30 ML VIAL (13:21)
--- NOTE | 2018-12-05 13:22 | DCINST_ITS ---
Discharge Diet: Light diet - advance as tolerated Discharge Activity: May Not Drive - for 2-3 days or while taking narcotic pain medications., - - Do not drive, work heavy equipment or sign legal documents for 24 hours. May shower in (days): 1 - with the bandage in place. Additional Activity Instructions:: Pain medication may cause nausea. You should typically eat light foods as you take your pain medications. Pain medication may also cause constipation. If this is a problem for you, please discuss with your doctor. Call your doctor if your incision/area has: Continuous Slow Oozing, Sudden Increased Bleeding, Increased Pain/ Swelling, Increased Redness, Foul Smelling Discharge Call your doctor if you observe: Fever of 101 or Higher Suture Line Care: Avoid Pulling/Pushing, Avoid Pinching/Bending Additional Dressing/Incision Instructions:: Leave operative bandaids on for 2 days. When you remove dressing, leave Steri-Strips on until your follow-up appointment, or until the Steri-Strips fall off on their own. Allergies/Adverse Reactions: Allergies No Known Allergies Allergy (Verified 11/01/18 14:39) Medications to take at Discharge vitamin,calcium,oouecqrn-eucc-kythq acid tablet 1 tab PO DAILY 02/07/18 Calcium Citrate/Vitamin D3 [Citracal + D Maximum Caplet] 1 ea PO DAILY 12/04/18 Methimazole 5 mg PO BID 12/04/18 Oxycodone HCl/Acetaminophen [Percocet 5/325] 1 - 2 tab PO Q4H PRN PRN 6 Days #30 tab 12/05/18 The following prescriptions were given: Oxycodone HCl/Acetaminophen [Percocet 5/325] 1 - 2 tab PO Q4H PRN PRN 6 Days #30 tab PRN Reason: Pain Prescription Printed Primary Care Physician: Ángel Bolnaos MD [Primary Care Provider] - Test Results: Test results from this visit will be discussed in further detail at your follow- up appointment, if applicable. Please Follow Up With: Sd Mathews MD - Please call [phone] to schedule an appointment. When: 7 days after your surgery.
[2018-12-05] MEDS: Lactated Ringers 1,000 ML 75 ML IV (14:30)
[2018-12-05] MEDS: Acetaminophen 325 MG Tablet 650 MG PO (15:31)
[2018-12-05] MEDS: oxyCODONE 5 MG Tablet PO (15:31)
[2018-12-05] MEDS: Ensure Clear 120 ML Liquid PO (17:19)
== END 2018-12-05 20:30 | disposition home or self-care (01) ==
LOC: ED 04:47 → MS3 09:31
PROVIDERS: Anesthesiology; Physician Assistant; Admitting Provider Surgery; Emergency Provider Emergency Medicine; Family Provider Family Medicine; PCP Family Medicine; Referring Provider Surgery; Visit Provider Surgery
PROC: (CPT 47562; principal; 2018-12-05 12:15)
DX: K80.12 Calculus of gallbladder with acute and chronic cholecystitis without obstruction (principal); Z87.891 Personal history of nicotine dependence; E05.90 Thyrotoxicosis, unspecified without thyrotoxic crisis or storm; Z79.899 Other long term (current) drug therapy
CPT/HCPCS: 00790; 47562; 36415; 76705; 80053; 81025; 83690; 84443; 85025; 88304; 96361; 96374; 96375; 99218; 99283; J7030; J7120; A4216; G0378; J2405

== ENCOUNTER → 2018-12-12 09:51 | Outpatient (CLI) | payer OTHER, SELFPAY ==
[2018-12-05 11:03] VITALS: BMI 24.8
[2018-12-12 11:54] LABS: Free T3 4.2 pg/mL (2.18-3.98); T4 Free Direct 1.38 ng/dL (0.76-1.46)
== END ==
PROVIDERS: Family Provider Family Medicine; PCP Family Medicine; Referring Provider Nurse Practitioner Adult Health; Visit Provider Nurse Practitioner Adult Health
DX: E05.00 Thyrotoxicosis with diffuse goiter without thyrotoxic crisis or storm (principal)
CPT/HCPCS: 36415; 84439; 84481

== ENCOUNTER → 2018-12-25 09:53 | Outpatient (CLI) | payer OTHER, SELFPAY ==
[2018-12-05 11:03] VITALS: BMI 24.8
[2018-12-25 11:36] LABS: Free T3 2.2 pg/mL (2.18-3.98)
== END ==
PROVIDERS: Nurse Practitioner Adult Health; Family Provider Family Medicine; PCP Family Medicine; Referring Provider Internal Medicine Endocrinology, Diabetes & Metabolism; Visit Provider Internal Medicine Endocrinology, Diabetes & Metabolism
DX: E05.00 Thyrotoxicosis with diffuse goiter without thyrotoxic crisis or storm (principal)
CPT/HCPCS: 36415; 84439; 84481

== ENCOUNTER → 2019-01-09 16:44 | Outpatient (CLI) | payer OTHER, SELFPAY ==
[2018-12-05 11:03] VITALS: BMI 24.8
[2019-01-09 17:37] LABS: Free T3 2.3 pg/mL (2.18-3.98); T4 Free Direct 0.62 ng/dL (0.76-1.46)
== END ==
PROVIDERS: Family Provider Family Medicine; PCP Family Medicine; Referring Provider Internal Medicine Endocrinology, Diabetes & Metabolism; Visit Provider Internal Medicine Endocrinology, Diabetes & Metabolism
DX: E05.00 Thyrotoxicosis with diffuse goiter without thyrotoxic crisis or storm (principal)
CPT/HCPCS: 36415; 84439; 84481

== ENCOUNTER → 2019-02-05 17:13 | Outpatient (CLI) | payer OTHER, SELFPAY ==
[2018-12-05 11:03] VITALS: BMI 24.8
[2019-02-05 18:26] LABS: Free T3 2.4 pg/mL (2.18-3.98); T4 Free Direct 0.71 ng/dL (0.76-1.46)
== END ==
PROVIDERS: Family Provider Family Medicine; PCP Family Medicine; Referring Provider Internal Medicine Endocrinology, Diabetes & Metabolism; Visit Provider Internal Medicine Endocrinology, Diabetes & Metabolism
DX: E05.00 Thyrotoxicosis with diffuse goiter without thyrotoxic crisis or storm (principal)
CPT/HCPCS: 36415; 84439; 84481

== ENCOUNTER → 2019-03-01 16:42 | Outpatient (CLI) | payer OTHER, SELFPAY ==
[2018-12-05 11:03] VITALS: BMI 24.8
[2019-03-01 18:08] LABS: Vitamin D,25 Hydroxy 24.9 ng/mL (29.95-100.01)
[2019-03-01 18:09] LABS: ALB/GLOB Ratio 1.2 RATIO (0.9-2.4); AST(SGOT) 13 U/L (15-37); Alanine Aminotransfer ALT/SGPT 22 U/L (13-56); Albumin, Serum 4.1 g/dL (3.2-5.0); Alkaline Phosphatase 92 U/L (45-117); Anion Gap 6 (5-15); BUN 7 mg/dL (7-18); BUN/Creat Ratio 11.4 RATIO (10-20); Calcium,Total 8.7 mg/dL (8.5-10.1); Chloride 105 mmol/L (98-107); Creatinine, Serum 0.61 mg/dL (0.55-1.02); EST Glomerular Filtration Rate 123 mL/min (>60); Est Glom Filt Rate - Afr Amer 149 mL/min (>60); Free T3 2.8 pg/mL (2.18-3.98); Globulin 3.3 g/dL (2.2-4.2); Glucose 74 mg/dL (74-106); Potassium 3.7 mmol/L (3.5-5.1); Protein, Total 7.4 g/dL (6.4-8.2); Sodium Level 139 mmol/L (136-145); T4 Free Direct 0.79 ng/dL (0.76-1.46)
== END ==
PROVIDERS: Family Provider Family Medicine; PCP Family Medicine; Referring Provider Internal Medicine Endocrinology, Diabetes & Metabolism; Visit Provider Internal Medicine Endocrinology, Diabetes & Metabolism
DX: E05.00 Thyrotoxicosis with diffuse goiter without thyrotoxic crisis or storm (principal); E55.9 Vitamin D deficiency, unspecified
CPT/HCPCS: 36415; 80053; 82306; 84439; 84443; 84481

== ENCOUNTER → 2019-03-13 21:14 | Outpatient (CLI) | payer OTHER, SELFPAY ==
[2018-12-05 11:03] VITALS: BMI 24.8
[2019-03-13 22:15] LABS: Vitamin D,25 Hydroxy 23.2 ng/mL (29.95-100.01)
[2019-03-13 22:16] LABS: ALB/GLOB Ratio 1.1 RATIO (0.9-2.4); AST(SGOT) 20 U/L (15-37); Alanine Aminotransfer ALT/SGPT 28 U/L (13-56); Albumin, Serum 3.9 g/dL (3.2-5.0); Alkaline Phosphatase 91 U/L (45-117); Anion Gap 7 (5-15); BUN 7 mg/dL (7-18); BUN/Creat Ratio 9.9 RATIO (10-20); Chloride 107 mmol/L (98-107); Creatinine, Serum 0.71 mg/dL (0.55-1.02); EST Glomerular Filtration Rate 104 mL/min (>60); Est Glom Filt Rate - Afr Amer 126 mL/min (>60); Globulin 3.6 g/dL (2.2-4.2); Glucose 87 mg/dL (74-106); Potassium 3.5 mmol/L (3.5-5.1); Protein, Total 7.5 g/dL (6.4-8.2); Sodium Level 140 mmol/L (136-145); T4 Free Direct 0.89 ng/dL (0.76-1.46)
== END ==
PROVIDERS: Family Provider Family Medicine; PCP Family Medicine; Referring Provider Internal Medicine Endocrinology, Diabetes & Metabolism; Visit Provider Internal Medicine Endocrinology, Diabetes & Metabolism
DX: E05.00 Thyrotoxicosis with diffuse goiter without thyrotoxic crisis or storm (principal); E55.9 Vitamin D deficiency, unspecified
CPT/HCPCS: 36415; 80053; 82306; 84439; 84443; 84481

== ENCOUNTER → 2019-03-22 10:26 | Outpatient (CLI) | payer OTHER, SELFPAY ==
[2018-12-05 11:03] VITALS: BMI 24.8
[2019-03-22 12:09] LABS: Free T3 2.7 pg/mL (2.18-3.98); T4 Free Direct 0.92 ng/dL (0.76-1.46); Thyroid Stim Hormone (TSH) 7.53 uIU/mL (0.358-3.74)
== END ==
PROVIDERS: Family Provider Family Medicine; PCP Family Medicine; Referring Provider Nurse Practitioner Adult Health; Visit Provider Nurse Practitioner Adult Health
DX: E05.00 Thyrotoxicosis with diffuse goiter without thyrotoxic crisis or storm (principal)
CPT/HCPCS: 36415; 84439; 84443; 84481

== ENCOUNTER → 2019-04-20 09:19 | Outpatient (CLI) | payer OTHER, SELFPAY ==
[2018-12-05 11:03] VITALS: BMI 24.8
[2019-04-20 10:49] LABS: ALB/GLOB Ratio 1.3 RATIO (0.9-2.4); AST(SGOT) 13 U/L (15-37); Alanine Aminotransfer ALT/SGPT 20 U/L (13-56); Alkaline Phosphatase 79 U/L (45-117); Anion Gap 8 (5-15); BUN 7 mg/dL (7-18); BUN/Creat Ratio 10.9 RATIO (10-20); Calcium,Total 8.9 mg/dL (8.5-10.1); Chloride 109 mmol/L (98-107); Creatinine, Serum 0.64 mg/dL (0.55-1.02); EST Glomerular Filtration Rate 116 mL/min (>60); Est Glom Filt Rate - Afr Amer 141 mL/min (>60); Free T3 2.4 pg/mL (2.18-3.98); Globulin 3.1 g/dL (2.2-4.2); Glucose 87 mg/dL (74-106); Potassium 3.6 mmol/L (3.5-5.1); Protein, Total 7.1 g/dL (6.4-8.2); Sodium Level 143 mmol/L (136-145); T4 Free Direct 0.92 ng/dL (0.76-1.46); Thyroid Stim Hormone (TSH) 4.25 uIU/mL (0.358-3.74)
[2019-04-20 10:50] LABS: Vitamin D,25 Hydroxy 39.5 ng/mL (29.95-100.01)
== END ==
PROVIDERS: Family Provider Family Medicine; PCP Family Medicine; Referring Provider Nurse Practitioner Adult Health; Visit Provider Nurse Practitioner Adult Health
DX: E05.00 Thyrotoxicosis with diffuse goiter without thyrotoxic crisis or storm (principal); E55.9 Vitamin D deficiency, unspecified
CPT/HCPCS: 36415; 80053; 82306; 84439; 84443; 84481

== ENCOUNTER → 2019-06-01 16:52 | Outpatient (CLI) | payer OTHER, SELFPAY ==
[2018-12-05 11:03] VITALS: BMI 24.8
[2019-06-01 18:04] LABS: Free T3 2.8 pg/mL (2.18-3.98); T4 Free Direct 0.94 ng/dL (0.76-1.46)
== END ==
PROVIDERS: PCP Family Medicine; Referring Provider Internal Medicine Endocrinology, Diabetes & Metabolism; Visit Provider Internal Medicine Endocrinology, Diabetes & Metabolism
DX: E05.00 Thyrotoxicosis with diffuse goiter without thyrotoxic crisis or storm (principal)
CPT/HCPCS: 36415; 84439; 84443; 84481

== ENCOUNTER → 2019-06-22 09:49 | Outpatient (CLI) | payer OTHER, SELFPAY ==
[2018-12-05 11:03] VITALS: BMI 24.8
[2019-06-22 11:27] LABS: Free T3 3.1 pg/mL (2.18-3.98); T4 Free Direct 1.19 ng/dL (0.76-1.46); Thyroid Stim Hormone (TSH) 2.48 uIU/mL (0.358-3.74)
== END ==
PROVIDERS: PCP Family Medicine; Referring Provider Nurse Practitioner Adult Health; Visit Provider Nurse Practitioner Adult Health
DX: E05.00 Thyrotoxicosis with diffuse goiter without thyrotoxic crisis or storm (principal)
CPT/HCPCS: 36415; 84439; 84443; 84481

== ENCOUNTER → 2019-07-27 16:51 | Outpatient (CLI) | payer OTHER, SELFPAY ==
[2018-12-05 11:03] VITALS: BMI 24.8
[2019-07-27 18:11] LABS: AST(SGOT) 18 U/L (15-37); Alanine Aminotransfer ALT/SGPT 41 U/L (13-56); Albumin, Serum 3.5 g/dL (3.2-5.0); Alkaline Phosphatase 73 U/L (45-117); Anion Gap 4 (5-15); BUN 8 mg/dL (7-18); BUN/Creat Ratio 13.9 RATIO (10-20); Calcium,Total 8.7 mg/dL (8.5-10.1); Chloride 109 mmol/L (98-107); Creatinine, Serum 0.58 mg/dL (0.55-1.02); EST Glomerular Filtration Rate 132 mL/min (>60); Est Glom Filt Rate - Afr Amer 159 mL/min (>60); Free T3 2.7 pg/mL (2.18-3.98); Globulin 3.4 g/dL (2.2-4.2); Glucose 87 mg/dL (74-106); Potassium 3.7 mmol/L (3.5-5.1); Protein, Total 6.9 g/dL (6.4-8.2); Sodium Level 142 mmol/L (136-145); T4 Free Direct 1.27 ng/dL (0.76-1.46); Thyroid Stim Hormone (TSH) 1.67 uIU/mL (0.358-3.74)
[2019-07-28 07:33] LABS: Vitamin D,25 Hydroxy 55.1 ng/mL
== END ==
PROVIDERS: PCP Family Medicine; Referring Provider Nurse Practitioner Adult Health; Visit Provider Nurse Practitioner Adult Health
DX: E05.00 Thyrotoxicosis with diffuse goiter without thyrotoxic crisis or storm (principal); E55.9 Vitamin D deficiency, unspecified
CPT/HCPCS: 36415; 80053; 82306; 84439; 84443; 84481

== ENCOUNTER → 2019-10-23 14:42 | Outpatient (CLI) | payer OTHER, SELFPAY ==
[2018-12-05 11:03] VITALS: BMI 24.8
[2019-10-23 17:01] LABS: T4 Free Direct 1.18 ng/dL (0.76-1.46); Thyroid Stim Hormone (TSH) 2.02 uIU/mL (0.358-3.74)
== END ==
PROVIDERS: PCP Family Medicine; Visit Provider Internal Medicine Endocrinology, Diabetes & Metabolism
DX: E03.8 Other specified hypothyroidism (principal)
CPT/HCPCS: 36415; 84439; 84443

== ENCOUNTER → 2019-11-27 | Outpatient (CLI) | payer OTHER, SELFPAY ==
[2019-11-05 08:29] VITALS: BMI 24.8
[2019-11-27 15:13] LABS: Absolute Lymphocyte Count 1.98 X10^3/uL (0.83-4.51); Absolute Neutrophil Count 3.6 X10^3/uL (2.0-7.7); Basophil# 0.02 X10^3/uL; Basophil% 0.3 % (0-1); Eosinophil# 0.19 X10^3/uL; Eosinophils% 3.1 % (0-5); Hematocrit 42.5 % (37-47); Hemoglobin 14.9 g/dL (12.0-15.0); Lymphocyte # 1.98 X10^3/ul (4.0); Lymphocyte % 32.1 % (19-41); Mean Corp Hgb Conc 35.1 g/dL (32-36); Mean Corpuscular Hgb 32.1 pg (27.0-32.0); Mean Corpuscular Volume 91.6 fL (81-99); Mean Platelet Vol. 10.2 fl (6.2-12.0); Monocyte# 0.38 X10^3/uL; Monocyte% 6.2 % (0-10); NRBC Flagged by Analyzer 0 % (0-5); Neutrophil # 3.58 X10^3/uL (2.7-7.7); Neutrophil % 58.1 % (47-70); Platelet Count 302 K/mm3 (150-450); RBC Distribution Width CV 12.6 % (11.6-14.6); RBC Distribution Width SD 41.1 fl (35.1-43.9); Red Blood Count 4.64 M/mm3 (4.2-5.4); White Blood Count 6.2 K/mm3 (4.4-11.0)
[2019-11-27 15:28] LABS: ALB/GLOB Ratio 1.2 RATIO (0.9-2.4); AST(SGOT) 11 U/L (15-37); Alanine Aminotransfer ALT/SGPT 21 U/L (13-56); Alkaline Phosphatase 53 U/L (45-117); Anion Gap 7 (5-15); BUN 8 mg/dL (7-18); Calcium,Total 8.5 mg/dL (8.5-10.1); Chloride 107 mmol/L (98-107); Creatinine, Serum 0.62 mg/dL (0.55-1.02); EST Glomerular Filtration Rate 121 mL/min (>60); Est Glom Filt Rate - Afr Amer 147 mL/min (>60); Ferritin 44 ng/mL (8-252); Globulin 3.3 g/dL (2.2-4.2); Glucose 90 mg/dL (74-106); Potassium 3.5 mmol/L (3.5-5.1); Protein, Total 7.3 g/dL (6.4-8.2); Sodium Level 140 mmol/L (136-145)
[2019-11-29 14:29] LABS: Thyroid Peroxidase AB 290 IU/mL (0-34)
== END | disposition home or self-care (01) ==
LOC: MTLAB 12:02
PROVIDERS: PCP Family Medicine; Referring Provider Dermatology Pediatric Dermatology; Visit Provider Dermatology Pediatric Dermatology
DX: D64.9 Anemia, unspecified (principal); L63.8 Other alopecia areata
CPT/HCPCS: 36415; 80053; 82728; 85025; 86376

== ENCOUNTER → 2019-12-11 | Outpatient (CLI) | payer OTHER, SELFPAY ==
[2019-11-05 08:29] VITALS: BMI 24.8
[2019-12-11 13:41] LABS: T4 Free Direct 1.16 ng/dL (0.76-1.46); Thyroid Stim Hormone (TSH) 1.74 uIU/mL (0.358-3.74)
== END | disposition home or self-care (01) ==
LOC: LAB 12:20
PROVIDERS: Nurse Practitioner Adult Health; PCP Family Medicine
DX: E03.8 Other specified hypothyroidism (principal)
CPT/HCPCS: 36415; 84439; 84443

== ENCOUNTER → 2019-12-18 | Outpatient (CLI) | payer OTHER, SELFPAY ==
[2019-11-05 08:29] VITALS: BMI 24.8
[2019-12-18 16:35] LABS: Iron 117 ug/dL (50-170)
[2019-12-18 16:39] LABS: Vitamin B12 621 pg/mL (211-911)
== END | disposition home or self-care (01) ==
LOC: LAB 15:40
PROVIDERS: PCP Family Medicine; Referring Provider Internal Medicine Endocrinology, Diabetes & Metabolism; Visit Provider Internal Medicine Endocrinology, Diabetes & Metabolism
DX: D51.9 Vitamin B12 deficiency anemia, unspecified (principal); D50.9 Iron deficiency anemia, unspecified
CPT/HCPCS: 36415; 82607; 83540

== ENCOUNTER → 2020-02-04 | Outpatient (CLI) | payer OTHER, SELFPAY ==
[2019-11-05 08:29] VITALS: BMI 24.8
[2020-02-04 17:06] LABS: ALB/GLOB Ratio 1.4 RATIO (0.9-2.4); AST(SGOT) 5 U/L (15-37); Alanine Aminotransfer ALT/SGPT 20 U/L (13-56); Albumin, Serum 4.3 g/dL (3.2-5.0); Alkaline Phosphatase 56 U/L (45-117); Anion Gap 7 (5-15); BUN 10 mg/dL (7-18); BUN/Creat Ratio 16.2 RATIO (10-20); Calcium,Total 8.9 mg/dL (8.5-10.1); Chloride 107 mmol/L (98-107); Creatinine, Serum 0.62 mg/dL (0.55-1.02); EST Glomerular Filtration Rate 121 mL/min (>60); Est Glom Filt Rate - Afr Amer 147 mL/min (>60); Globulin 3.1 g/dL (2.2-4.2); Glucose 88 mg/dL (74-106); Potassium 3.7 mmol/L (3.5-5.1); Protein, Total 7.4 g/dL (6.4-8.2); Sodium Level 139 mmol/L (136-145); Thyroid Stim Hormone (TSH) 1.42 uIU/mL (0.358-3.74)
== END | disposition home or self-care (01) ==
PROVIDERS: PCP Family Medicine; Referring Provider Internal Medicine Endocrinology, Diabetes & Metabolism; Visit Provider Internal Medicine Endocrinology, Diabetes & Metabolism
DX: E03.8 Other specified hypothyroidism (principal); M85.89 Other specified disorders of bone density and structure, multiple sites
CPT/HCPCS: 36415; 80053; 84443

== ENCOUNTER → 2020-02-14 | Outpatient (CLI) | payer OTHER, SELFPAY ==
[2019-11-05 08:29] VITALS: BMI 24.8
[2020-02-14 11:40] LABS: Absolute Lymphocyte Count 2.48 X10^3/uL (0.83-4.51); Absolute Neutrophil Count 4.3 X10^3/uL (2.0-7.7); Basophil# 0.04 X10^3/uL; Basophil% 0.5 % (0-1); Eosinophil# 0.19 X10^3/uL; Eosinophils% 2.6 % (0-5); Hematocrit 45.2 % (37-47); Hemoglobin 15.7 g/dL (12.0-15.0); Lymphocyte # 2.48 X10^3/ul (4.0); Lymphocyte % 33.3 % (19-41); Mean Corp Hgb Conc 34.7 g/dL (32-36); Mean Corpuscular Hgb 31.7 pg (27.0-32.0); Mean Corpuscular Volume 91.1 fL (81-99); Mean Platelet Vol. 9.8 fl (6.2-12.0); Monocyte# 0.42 X10^3/uL; Monocyte% 5.6 % (0-10); NRBC Flagged by Analyzer 0 % (0-5); Neutrophil % 57.9 % (47-70); Platelet Count 378 K/mm3 (150-450); RBC Distribution Width CV 12.2 % (11.6-14.6); RBC Distribution Width SD 40.9 fl (35.1-43.9); Red Blood Count 4.96 M/mm3 (4.2-5.4); White Blood Count 7.4 K/mm3 (4.4-11.0)
[2020-02-14 12:07] LABS: Vitamin B12 517 pg/mL (211-911); Vitamin D,25 Hydroxy 73.6 ng/mL
[2020-02-14 12:50] LABS: Ferritin 48 ng/mL (8-252); Iron 101 ug/dL (50-170)
[2020-02-17 20:07] LABS: Testosterone, % Free 1.54 % (0.50-2.80); Testosterone, Free 0.43 ng/dL (0.10-0.85); Testosterone, Total 28 ng/dL (8-48)
== END | disposition home or self-care (01) ==
LOC: LAB 10:30
PROVIDERS: PCP Family Medicine; Referring Provider Internal Medicine Endocrinology, Diabetes & Metabolism; Visit Provider Internal Medicine Endocrinology, Diabetes & Metabolism
DX: E03.8 Other specified hypothyroidism (principal); E27.9 Disorder of adrenal gland, unspecified; E55.9 Vitamin D deficiency, unspecified; D50.9 Iron deficiency anemia, unspecified; D51.3 Other dietary vitamin B12 deficiency anemia
CPT/HCPCS: 36415; 82306; 82607; 82627; 82728; 82746; 83540; 84402; 84403; 85025; 82626

== ENCOUNTER → 2020-03-25 07:58 | Outpatient (CLI) | payer OTHER, SELFPAY ==
[2019-11-05 08:29] VITALS: BMI 24.8
[2020-03-25 09:05] LABS: Hemoglobin A1c 4.6 % (3.8-5.6)
[2020-03-26 12:07] LABS: RNP Ab <0.2 AI (0.0-0.9); Smith Ab <0.2 AI (0.0-0.9)
[2020-03-26 13:11] LABS: ANTINUCLEAR ANTIBODIES DIRECT Negative (Negative)
[2020-03-30 03:06] LABS: Cytoplasmic Ab (C-ANCA) <1:20 titer (Neg:<1:20); Immunoglobulin A 190 mg/dL (87-352); Immunoglobulin G 929 mg/dL (586-1602); Immunoglobulin M 59 mg/dL (26-217); PROEL- A/G Ratio 1.5 (0.7-1.7); PROEL- Albumin 3.9 g/dL (2.9-4.4); PROEL- Alpha-1 Globulin 0.2 g/dL (0.0-0.4); PROEL- Alpha-2 Globulin 0.7 g/dL (0.4-1.0); PROEL- Beta Globulin 0.7 g/dL (0.7-1.3); PROEL- Gamma Globulin 0.9 g/dL (0.4-1.8); PROEL- Globulin, Total 2.6 g/dL (2.2-3.9); PROEL- TOTAL PROTEIN 6.5 g/dL (6.0-8.5); Vitamin B1, Thiamine 187.6 nmol/L (66.5-200.0)
[2020-03-31 04:42] LABS: Copper, Serum or Plasma 109 ug/dL (72-166); Perinuclear Ab (P-ANCA) <1:20 titer (Neg:<1:20)
== END ==
PROVIDERS: PCP Family Medicine
DX: G62.9 Polyneuropathy, unspecified (principal)
CPT/HCPCS: 36415; 82525; 82784; 83036; 84165; 84425; 86038; 86235; 86256; 86334

== ENCOUNTER → 2020-05-13 13:57 | Outpatient (CLI) | payer OTHER, SELFPAY ==
[2019-11-05 08:29] VITALS: BMI 24.8
[2020-05-13 14:52] LABS: Vitamin D,25 Hydroxy 61.8 ng/mL
[2020-05-13 15:02] LABS: ALB/GLOB Ratio 1.3 RATIO (0.9-2.4); AST(SGOT) 10 U/L (15-37); Alanine Aminotransfer ALT/SGPT 18 U/L (13-56); Alkaline Phosphatase 54 U/L (45-117); Anion Gap 5 (5-15); BUN 7 mg/dL (7-18); BUN/Creat Ratio 11.7 RATIO (10-20); Calcium,Total 8.8 mg/dL (8.5-10.1); Chloride 107 mmol/L (98-107); EST Glomerular Filtration Rate 125 mL/min (>60); Est Glom Filt Rate - Afr Amer 151 mL/min (>60); Glucose 94 mg/dL (74-106); Potassium 3.4 mmol/L (3.5-5.1); Sodium Level 140 mmol/L (136-145); Thyroid Stim Hormone (TSH) 1.13 uIU/mL (0.358-3.74)
== END ==
PROVIDERS: PCP Family Medicine; Referring Provider Internal Medicine Endocrinology, Diabetes & Metabolism; Visit Provider Internal Medicine Endocrinology, Diabetes & Metabolism
DX: E03.8 Other specified hypothyroidism (principal); E55.9 Vitamin D deficiency, unspecified
CPT/HCPCS: 36415; 80053; 82306; 84443

== ENCOUNTER → 2020-05-29 08:02 | Outpatient (CLI) | payer OTHER, SELFPAY ==
[2019-11-05 08:29] VITALS: BMI 24.8
[2020-05-29 09:04] LABS: Vitamin D,25 Hydroxy 60.6 ng/mL
[2020-05-29 09:11] LABS: ALB/GLOB Ratio 1.2 RATIO (0.9-2.4); AST(SGOT) 8 U/L (15-37); Alanine Aminotransfer ALT/SGPT 18 U/L (13-56); Alkaline Phosphatase 51 U/L (45-117); Anion Gap 3 (5-15); BUN 11 mg/dL (7-18); BUN/Creat Ratio 18.9 RATIO (10-20); Calcium,Total 9.1 mg/dL (8.5-10.1); Chloride 109 mmol/L (98-107); Creatinine, Serum 0.58 mg/dL (0.55-1.02); EST Glomerular Filtration Rate 129 mL/min (>60); Est Glom Filt Rate - Afr Amer 157 mL/min (>60); Globulin 3.2 g/dL (2.2-4.2); Glucose 80 mg/dL (74-106); Protein, Total 7.2 g/dL (6.4-8.2); Sodium Level 140 mmol/L (136-145); Thyroid Stim Hormone (TSH) 1.52 uIU/mL (0.358-3.74)
== END ==
PROVIDERS: PCP Family Medicine; Referring Provider Internal Medicine Endocrinology, Diabetes & Metabolism; Visit Provider Internal Medicine Endocrinology, Diabetes & Metabolism
DX: E78.00 Pure hypercholesterolemia, unspecified (principal); E03.8 Other specified hypothyroidism; E55.9 Vitamin D deficiency, unspecified
CPT/HCPCS: 36415; 80053; 82306; 84443

== ENCOUNTER → 2020-06-11 08:08 | Outpatient (CLI) | payer OTHER, SELFPAY ==
[2019-11-05 08:29] VITALS: BMI 24.8
[2020-06-11 08:24] VITALS: BP 112/67; PULSE 81; RESP 16; TEMP 36.4; O2SAT 97; BMI 20.5
[2020-06-11 08:37] VITALS: BP 97/65; PULSE 75
[2020-06-11] MEDS: Cosyntropin 0.25 MG Vial IV (08:50)
[2020-06-11 10:00] VITALS: BP 110/67; PULSE 74
== END ==
PROVIDERS: PCP Family Medicine; Referring Provider Internal Medicine Endocrinology, Diabetes & Metabolism; Visit Provider Internal Medicine Endocrinology, Diabetes & Metabolism
DX: E27.9 Disorder of adrenal gland, unspecified (principal)
CPT/HCPCS: 96374; 82024; 82533; 82627; 82626; A4216; J0834

== ENCOUNTER → 2020-11-04 13:48 | Outpatient (CLI) | payer OTHER, SELFPAY ==
[2020-06-11 08:24] VITALS: BMI 20.5
[2020-11-04 16:45] LABS: ALB/GLOB Ratio 1.2 RATIO (0.9-2.4); AST(SGOT) 11 U/L (15-37); Alanine Aminotransfer ALT/SGPT 19 U/L (13-56); Alkaline Phosphatase 51 U/L (45-117); Anion Gap 7 (5-15); BUN 7 mg/dL (7-18); BUN/Creat Ratio 15.5 RATIO (10-20); Calcium,Total 8.6 mg/dL (8.5-10.1); Chloride 105 mmol/L (98-107); Creatinine, Serum 0.45 mg/dL (0.55-1.02); EST Glomerular Filtration Rate 173 mL/min (>60); Est Glom Filt Rate - Afr Amer 209 mL/min (>60); Globulin 3.2 g/dL (2.2-4.2); Glucose 59 mg/dL (74-106); Potassium 3.7 mmol/L (3.5-5.1); Protein, Total 7.2 g/dL (6.4-8.2); Sodium Level 141 mmol/L (136-145); Thyroid Stim Hormone (TSH) 2.63 uIU/mL (0.358-3.74)
== END ==
PROVIDERS: PCP Family Medicine; Visit Provider Internal Medicine Endocrinology, Diabetes & Metabolism
DX: E03.8 Other specified hypothyroidism (principal)
CPT/HCPCS: 36415; 80053; 84443

== ENCOUNTER → 2021-02-24 09:32 | Outpatient (CLI) | payer OTHER, SELFPAY ==
[2021-02-24 11:26] LABS: ALB/GLOB Ratio 1.2 RATIO (0.9-2.4); AST(SGOT) 10 U/L (15-37); Alanine Aminotransfer ALT/SGPT 20 U/L (13-56); Albumin, Serum 3.8 g/dL (3.2-5.0); Alkaline Phosphatase 44 U/L (45-117); Anion Gap 9 (5-15); BUN 7 mg/dL (7-18); BUN/Creat Ratio 12.6 RATIO (10-20); Calcium,Total 9.1 mg/dL (8.5-10.1); Chloride 105 mmol/L (98-107); Creatinine, Serum 0.56 mg/dL (0.55-1.02); EST Glomerular Filtration Rate 136 mL/min (>60); Est Glom Filt Rate - Afr Amer 164 mL/min (>60); Globulin 3.3 g/dL (2.2-4.2); Glucose 79 mg/dL (74-106); Potassium 3.8 mmol/L (3.5-5.1); Protein, Total 7.1 g/dL (6.4-8.2); Sodium Level 142 mmol/L (136-145); Thyroid Stim Hormone (TSH) 2.21 uIU/mL (0.358-3.74)
== END ==
PROVIDERS: PCP Family Medicine; Referring Provider Internal Medicine Endocrinology, Diabetes & Metabolism; Visit Provider Internal Medicine Endocrinology, Diabetes & Metabolism
DX: E03.8 Other specified hypothyroidism (principal)
CPT/HCPCS: 36415; 80053; 84443

== ENCOUNTER → 2021-04-02 15:05 | Outpatient (CLI) | payer OTHER, SELFPAY ==
[2021-04-02 16:18] LABS: T4 Free Direct 1.19 ng/dL (0.76-1.46); Thyroid Stim Hormone (TSH) 1.67 uIU/mL (0.358-3.74)
== END ==
PROVIDERS: PCP Family Medicine; Visit Provider Internal Medicine Endocrinology, Diabetes & Metabolism
DX: E03.8 Other specified hypothyroidism (principal)
CPT/HCPCS: 36415; 84439; 84443

== ENCOUNTER → 2021-05-11 14:41 | Outpatient (CLI) | payer OTHER, SELFPAY ==
[2021-05-11 14:59] LABS: Absolute Lymphocyte Count 1.34 X10^3/uL (0.83-4.51); Absolute Neutrophil Count 6.4 X10^3/uL (2.0-7.7); Basophil# 0.03 X10^3/uL; Basophil% 0.4 % (0-1); Eosinophil# 0.13 X10^3/uL; Eosinophils% 1.5 % (0-5); Hematocrit 37.9 % (37-47); Hemoglobin 13.7 g/dL (12.0-15.0); Lymphocyte # 1.34 X10^3/ul (0.83-4.51); Lymphocyte % 15.9 % (19-41); Mean Corp Hgb Conc 36.1 g/dL (32-36); Mean Corpuscular Hgb 32.2 pg (27.0-32.0); Mean Platelet Vol. 9.4 fl (6.2-12.0); Monocyte# 0.52 X10^3/uL; Monocyte% 6.2 % (0-10); NRBC Flagged by Analyzer 0 % (0-5); Neutrophil # 6.35 X10^3/uL (2.7-7.7); Neutrophil % 75.5 % (47-70); Platelet Count 311 K/mm3 (150-450); RBC Distribution Width CV 12.4 % (11.6-14.6); RBC Distribution Width SD 40.6 fl (35.1-43.9); Red Blood Count 4.26 M/mm3 (4.2-5.4); White Blood Count 8.4 K/mm3 (4.4-11.0)
[2021-05-11 16:03] LABS: HIV - WCH Non-Reactive (Nonreactive); Hepatitis B Surface Antigen Non-Reactive (Nonreactive); Hepatitis C Antibody Non-Reactive (Nonreactive); Rubella IgG Reactive (Nonreactive); Syphilis Antibodies Non-reactive
[2021-05-11 17:30] LABS: Amphetamine Urine VISTA NEGATIVE (<1000 ng/mL); Barbiturate Urine VISTA NEGATIVE (< 200 ng/mL); Benzodiazepine Urine VISTA NEGATIVE (< 200 ng/mL); Cocaine Urine VISTA NEGATIVE (< 300 ng/mL); Ecstacy Urine VISTA NEGATIVE (< 500 ng/mL); Methadone Urine VISTA NEGATIVE (< 300 ng/mL); PCP Urine VISTA NEGATIVE (< 25 ng/mL); THC Urine VISTA NEGATIVE (< 50 ng/mL); Vista UDS pH Range 6
[2021-05-13 22:06] LABS: Chlamydia By Nucleic Acid AMP Negative (Negative)
[2021-05-14 10:14] LABS: Gonococcus By Nucleic Acid AMP Negative (Negative)
[2021-05-14 11:01] LABS: HPV APTIMA, High Risk Negative (Negative)
== END ==
PROVIDERS: PCP Family Medicine; Referring Provider Obstetrics & Gynecology; Visit Provider Obstetrics & Gynecology
DX: Z34.90 Encounter for supervision of normal pregnancy, unspecified, unspecified trimester (principal)
CPT/HCPCS: 36415; 80307; 85025; 86703; 86762; 86780; 86803; 86850; 86900; 86901; 87086; 87088; 87340; 87491; 87591; 87624; 88175; G0145

== ENCOUNTER → 2021-05-12 14:46 | Outpatient (CLI) | payer OTHER, SELFPAY ==
[2021-05-12 15:27] LABS: T4 Free Direct 1.05 ng/dL (0.76-1.46); Thyroid Stim Hormone (TSH) 1.71 uIU/mL (0.358-3.74)
== END ==
PROVIDERS: PCP Family Medicine; Referring Provider Internal Medicine Endocrinology, Diabetes & Metabolism; Visit Provider Internal Medicine Endocrinology, Diabetes & Metabolism
DX: E03.8 Other specified hypothyroidism (principal)
CPT/HCPCS: 36415; 84439; 84443

== ENCOUNTER 2021-05-29 09:50 | Outpatient (CLI) | payer OTHER, SELFPAY ==
--- NOTE | 2021-05-29 09:57 | US_ITS ---
STUDY: FIRST TRIMESTER OBSTETRICAL ULTRASOUND REASON FOR EXAM: Female, 31 years old well being . Intermittent spotting. LMP: 03/01/2021. TECHNIQUE: Transabdominal TECHNICAL QUALITY: Adequate. PRIOR ULTRASOUND: None. FINDINGS: There is visualization of a single gestational sac in a normal intrauterine position. The mean sac diameter (MSD) measures 6.78 cm, indicating an estimated gestational age (EGA) of 13 weeks, 1 days. The gestational sac shape is within normal limits. There is no demonstrated yolk sac. There is visualization of the placenta. Posterior location. There is visualization of a live embryo. The crown-rump length (CRL) measures 7.21 cm, indicating an estimated gestational age (EGA) of 13 weeks, 2 days. There is demonstrated cardiac activity with a heart rate of 162 bpm. The estimated gestation age (EGA) by LMP is 12 weeks, 5 days. The estimated date of delivery (KIMBERLY) by LMP is 12/06/2021. The estimated gestation age (EGA) by US is 13 weeks, 1 days. The estimated date of delivery (KIMBERLY) by US is 12/03/2021. The uterus measures 12.4 cm x 11.1 cm x 9.5 cm. There is no demonstrated uterine fibroid. The cervix is closed. The right ovary measures 3.7 cm x 2.1 cm x 1.2 cm. There is no right ovarian cyst. There is no visualized right adnexal mass or complex lesion. The left ovary measures 2.3 cm x 2.1 cm x 1.6 cm. There is no left ovarian cyst. There is no visualized left adnexal mass or complex lesion. There is no fluid in the cul de sac. US/Init OB < 14Wks US IMPRESSION: Single live intrauterine gestation with a mean gestational age of 13 weeks and 1 day. Electronically Signed: Solitario Haynes MD at 12:03 EST , Service support ,
== END 2021-05-29 23:59 | disposition short-term general hospital (02) ==
PROVIDERS: PCP Family Medicine; Referring Provider Obstetrics & Gynecology; Visit Provider Obstetrics & Gynecology
DX: Z36.89 Encounter for other specified antenatal screening (principal)
CPT/HCPCS: 76801

== ENCOUNTER 2021-06-29 15:17 | Outpatient (CLI) | payer OTHER, SELFPAY ==
[2021-06-29 16:44] LABS: Vitamin D,25 Hydroxy 57.2 ng/mL
[2021-06-29 16:55] LABS: ALB/GLOB Ratio 0.9 RATIO (0.9-2.4); AST(SGOT) 13 U/L (15-37); Alanine Aminotransfer ALT/SGPT 21 U/L (13-56); Albumin, Serum 3.2 g/dL (3.2-5.0); Alkaline Phosphatase 43 U/L (45-117); Anion Gap 8 (5-15); BUN 5 mg/dL (7-18); BUN/Creat Ratio 13.5 RATIO (10-20); Calcium,Total 8.6 mg/dL (8.5-10.1); Chloride 106 mmol/L (98-107); Creatinine, Serum 0.37 mg/dL (0.55-1.02); EST Glomerular Filtration Rate 216 mL/min (>60); Est Glom Filt Rate - Afr Amer 261 mL/min (>60); Globulin 3.7 g/dL (2.2-4.2); Glucose 92 mg/dL (74-106); Potassium 3.4 mmol/L (3.5-5.1); Protein, Total 6.9 g/dL (6.4-8.2); Sodium Level 139 mmol/L (136-145); Thyroid Stim Hormone (TSH) 2.05 uIU/mL (0.358-3.74)
== END 2021-06-29 23:59 | disposition home or self-care (01) ==
LOC: LAB 15:18
PROVIDERS: PCP Family Medicine; Referring Provider Internal Medicine Endocrinology, Diabetes & Metabolism; Visit Provider Internal Medicine Endocrinology, Diabetes & Metabolism
DX: E03.8 Other specified hypothyroidism (principal); E55.9 Vitamin D deficiency, unspecified
CPT/HCPCS: 36415; 80053; 82306; 84443

== ENCOUNTER 2021-07-06 13:29 | Outpatient (CLI) | payer OTHER, SELFPAY ==
[2021-07-06 14:15] LABS: Anion Gap 7 (5-15); BUN 7 mg/dL (7-18); BUN/Creat Ratio 17.9 RATIO (10-20); Chloride 105 mmol/L (98-107); Creatinine, Serum 0.39 mg/dL (0.55-1.02); EST Glomerular Filtration Rate 202 mL/min (>60); Est Glom Filt Rate - Afr Amer 245 mL/min (>60); Glucose 87 mg/dL (74-106); Potassium 3.7 mmol/L (3.5-5.1); Sodium Level 137 mmol/L (136-145)
== END 2021-07-06 23:59 | disposition home or self-care (01) ==
LOC: PAVLAB 13:30
PROVIDERS: PCP Family Medicine; Referring Provider Internal Medicine Endocrinology, Diabetes & Metabolism; Visit Provider Internal Medicine Endocrinology, Diabetes & Metabolism
DX: E03.8 Other specified hypothyroidism (principal)
CPT/HCPCS: 36415; 80048

== ENCOUNTER 2021-08-17 11:57 | Outpatient (CLI) | payer OTHER, SELFPAY ==
[2021-08-17 12:26] LABS: Absolute Lymphocyte Count 1.56 X10^3/uL (0.83-4.51); Absolute Neutrophil Count 5.3 X10^3/uL (2.0-7.7); Basophil# 0.02 X10^3/uL; Basophil% 0.3 % (0-1); Eosinophil# 0.21 X10^3/uL; Eosinophils% 2.8 % (0-5); Hematocrit 38.3 % (37-47); Hemoglobin 13.6 g/dL (12.0-15.0); Lymphocyte # 1.56 X10^3/ul (0.83-4.51); Lymphocyte % 20.8 % (19-41); Mean Corp Hgb Conc 35.5 g/dL (32-36); Mean Corpuscular Hgb 33.1 pg (27.0-32.0); Mean Corpuscular Volume 93.2 fL (81-99); Mean Platelet Vol. 9.6 fl (6.2-12.0); Monocyte# 0.39 X10^3/uL; Monocyte% 5.2 % (0-10); NRBC Flagged by Analyzer 0 % (0-5); Neutrophil # 5.28 X10^3/uL (2.7-7.7); Neutrophil % 70.5 % (47-70); Platelet Count 254 K/mm3 (150-450); RBC Distribution Width CV 13.3 % (11.6-14.6); RBC Distribution Width SD 45.1 fl (35.1-43.9); Red Blood Count 4.11 M/mm3 (4.2-5.4); White Blood Count 7.5 K/mm3 (4.4-11.0)
[2021-08-17 13:12] LABS: Glucose Challenge Gest 1H 50g 168 mg/dL (70-140); Thyroid Stim Hormone (TSH) 1.89 uIU/mL (0.358-3.74)
== END 2021-08-17 23:59 | disposition home or self-care (01) ==
LOC: PAVLAB 11:58
PROVIDERS: PCP Family Medicine; Referring Provider Nurse Practitioner Adult Health; Visit Provider Obstetrics & Gynecology
DX: O99.280 Endocrine, nutritional and metabolic diseases complicating pregnancy, unspecified trimester (principal); E03.8 Other specified hypothyroidism
CPT/HCPCS: 36415; 82950; 84443; 85025

== ENCOUNTER 2021-08-19 09:43 | Outpatient (CLI) | payer OTHER, SELFPAY ==
[2021-08-19 10:52] LABS: Glucose GTT-Gestation. Fasting 90 mg/dL (<105)
[2021-08-19 11:52] LABS: Glucose GTT-Gestational 1 Hr 160 mg/dL (<190)
== END 2021-08-19 23:59 | disposition home or self-care (01) ==
LOC: LAB 09:44
PROVIDERS: PCP Family Medicine; Referring Provider Obstetrics & Gynecology; Visit Provider Obstetrics & Gynecology
DX: Z13.1 Encounter for screening for diabetes mellitus (principal)
CPT/HCPCS: 36415; 82951; 82952

== ENCOUNTER → 2021-10-28 | Outpatient (CLI) | payer OTHER, SELFPAY ==
[2021-10-28 16:08] LABS: Vitamin D,25 Hydroxy 55.3 ng/mL
[2021-10-28 16:18] LABS: ALB/GLOB Ratio 0.9 RATIO (0.9-2.4); AST(SGOT) 16 U/L (15-37); Alanine Aminotransfer ALT/SGPT 24 U/L (13-56); Albumin, Serum 2.9 g/dL (3.2-5.0); Alkaline Phosphatase 147 U/L (45-117); Anion Gap 9 (5-15); BUN 5 mg/dL (7-18); BUN/Creat Ratio 9.2 RATIO (10-20); Calcium,Total 8.8 mg/dL (8.5-10.1); Chloride 105 mmol/L (98-107); Creatinine, Serum 0.54 mg/dL (0.55-1.02); EST Glomerular Filtration Rate 139 mL/min (>60); Est Glom Filt Rate - Afr Amer 168 mL/min (>60); Globulin 3.4 g/dL (2.2-4.2); Glucose 158 mg/dL (74-106); Potassium 3.3 mmol/L (3.5-5.1); Protein, Total 6.3 g/dL (6.4-8.2); Sodium Level 138 mmol/L (136-145)
== END | disposition home or self-care (01) ==
LOC: PAVLAB 15:28
PROVIDERS: Referring Provider Internal Medicine Endocrinology, Diabetes & Metabolism; Visit Provider Internal Medicine Endocrinology, Diabetes & Metabolism
DX: E03.8 Other specified hypothyroidism (principal); E55.9 Vitamin D deficiency, unspecified
CPT/HCPCS: 36415; 80053; 82306; 84443

== ENCOUNTER → 2021-11-10 | Outpatient (CLI) | payer OTHER, SELFPAY | END | disposition home or self-care (01) | LOC: LABSPEC 11-11 08:17 | PROVIDERS: Visit Provider Pediatrics Pediatric Cardiology | DX: O09.90 Supervision of high risk pregnancy, unspecified, unspecified trimester (principal) | CPT/HCPCS: 87081 ==

== ENCOUNTER → 2021-11-19 | Outpatient (CLI) | payer OTHER, SELFPAY ==
[2021-11-19 09:22] LABS: Glucose 81 mg/dL (74-106)
== END | disposition home or self-care (01) ==
LOC: LAB 08:18
PROVIDERS: Visit Provider Internal Medicine Endocrinology, Diabetes & Metabolism
DX: E03.8 Other specified hypothyroidism (principal); R73.9 Hyperglycemia, unspecified
CPT/HCPCS: 36415; 82947

== ENCOUNTER 2021-12-03 10:20 | Inpatient (IN) | payer OTHER, SELFPAY ==
[2021-12-03] VITALS (12 sets, daily range): BP systolic 125–154; BP diastolic 63–88; PULSE 84–105; RESP 18; TEMP 36.7–37.3; O2SAT 98; BMI 25.2
[2021-12-03] MEDS: Lactated Ringers 1,000 ML 200 ML IV (10:25)
[2021-12-03 10:36] LABS: ROM Internal Control Test YES-OK TO RESULT pt. (Internal QC)
[2021-12-03 10:37] LABS: ROM Patient Test POSITIVE (Negative)
[2021-12-03 10:49] LABS: Absolute Lymphocyte Count 1.78 X10^3/uL (0.83-4.51); Basophil# 0.03 X10^3/uL; Basophil% 0.2 % (0-1); Eosinophil# 0.21 X10^3/uL; Eosinophils% 1.7 % (0-5); Hematocrit 39.9 % (37-47); Hemoglobin 14.1 g/dL (12.0-15.0); Lymphocyte # 1.78 X10^3/ul (0.83-4.51); Mean Corp Hgb Conc 35.3 g/dL (32-36); Mean Corpuscular Hgb 33.1 pg (27.0-32.0); Mean Corpuscular Volume 93.7 fL (81-99); Mean Platelet Vol. 10.3 fl (6.2-12.0); Monocyte# 0.64 X10^3/uL; NRBC Flagged by Analyzer 0 % (0-5); Neutrophil # 9.99 X10^3/uL (2.7-7.7); Neutrophil % 78.5 % (47-70); Platelet Count 231 K/mm3 (150-450); RBC Distribution Width CV 13.8 % (11.6-14.6); RBC Distribution Width SD 45.9 fl (35.1-43.9); Red Blood Count 4.26 M/mm3 (4.2-5.4); White Blood Count 12.7 K/mm3 (4.4-11.0)
[2021-12-03] MEDS: Oxytocin 30 units/NS 500 ml 30 UNITS/500 ML IV.SOLN 334 UNITS IV (13:33)
[2021-12-03] MEDS: Methylergonovine 0.2 MG/ML Ampul IM (13:42)
[2021-12-03] MEDS: Acetaminophen 500 MG Tablet 1000 MG PO ×2 (16:05→22:09)
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
--- NOTE | 2021-12-03 16:14 | DCINST_ITS ---
Discharge Instructions Diet Discharge Diet: No restrictions Activity Discharge Activity: Return to Normal Activity, May Not Drive (while taking narcotic pain medications.) and May Shower May resume sexual activity in: 4-6 weeks Dressing / Incision Call your doctor if your incision/area has: Continuous Slow Oozing, Sudden Increased Bleeding, Increased Pain/ Swelling, Increased Redness and Foul Smelling Discharge Follow Up Care Please Follow Up With: Jina Padilla DO When: Call [phone] to make an appointment with your doctor in 6 weeks. If you had elevated blood pressure or 4th degree laceration, you will need to be seen in 2 weeks. Test Results: Test results from this visit will be discussed in further detail at your follow- up appointment, if applicable. Discharge Plan Admission Admit Date/Time: 12/03/21 10:20 Primary Reason for Your Visit: vaginal delivery Attending Provider: Jina Padilla Primary Care Provider: Reyna Rodriguez Primary Discharge Orders/Prescriptions Prescriptions: New ibuprofen 600 mg tablet 600 mg PO Q6H PRN (Reason: pain) 7 Days Qty: 28 0RF Rx Instructions: one tab every 6 hrs as needed for mild to moderate pain Continued Vitamin tablet 1 tab PO DAILY levothyroxine 50 mcg tablet 50 mcg PO DAILY calcium citrate-vitamin D3 1 EACH tablet 1 ea PO DAILY calcium citrate 200 mg (950 mg) Tablet 950 mg PO DAILY No Action (DME) blood-glucose meter Kit See Rx Instructions .ROUTE .MEDSUPPLY Qty: 1 0RF Rx Instructions: As directed (DME) Blood Glucose Test Strip See Rx Instructions .ROUTE .MEDSUPPLY Qty: 10 0RF Rx Instructions: As directed (DME) lancets Misc See Rx Instructions .ROUTE .MEDSUPPLY Qty: 100 0RF Rx Instructions: As directed Referrals / Follow Up: Care Physician,Reyna Primary [Primary Care Provider] - Disposition Disposition (needs filled in before D/C Order can be placed): Home, Self Care
[2021-12-04 00:23] VITALS: BP 114/72; PULSE 92; RESP 16; TEMP 36.4; O2SAT 98
[2021-12-04] MEDS: Ibuprofen 600 MG Tablet PO (00:24)
[2021-12-04 05:10] VITALS: BP 97/68; PULSE 83; RESP 16; TEMP 36.6; O2SAT 96
[2021-12-04] MEDS: Levothyroxine 50 MCG Tablet PO (06:26)
--- NOTE | 2021-12-04 07:21 | PN.OBGYN_ITS ---
Subjective Subjective Patient doing well without complaints. Tolerating PO. Ambulating and voiding without difficulty. Feeding well. Denies chest pain, shortness of breath, calf pain/swelling, fevers, chills, lightheadedness. Objective Data Objective Data Vital Signs: Vital Signs Temp Pulse Resp BP Pulse Ox O2 Del Method 97.8 F 83 16 97/68 96 Room Air 12/04/21 05:10 12/04/21 05:10 12/04/21 05:10 12/04/21 05:10 12/04/21 05:10 12/04/21 05:10 Oxygen Delivery Method Room Air Weight: 161 lb 9.581 oz Body Mass Index (BMI) 25.2 Intake & Output: Intake and Output for Last 24 Hours 12/02/21 12/03/21 12/04/21 23:59 23:59 23:59 Intake Total 1126.67 / 1126.67 Output Total 750 / 750 Balance 376.67 / 376.67 Lab / Micro Data Result Diagrams: 12/03/21 10:25 Labs: Laboratory Results - last 24 hr 12/03/21 10:15: Vag Amniotic Fld Detect POSITIVE H 12/03/21 10:25: WBC 12.7 H, RBC 4.26, Hgb 14.1, Hct 39.9, MCV 93.7, MCH 33.1 H, MCHC 35.3, RDW Std Deviation 45.9 H, RDW Coeff of Nick 13.8, Plt Count 231, MPV 10.3, Immature Gran % (Auto) 0.600, Neut % (Auto) 78.5 H, Lymph % (Auto) 14.0 L, Harding % (Auto) 5.0, Eos % (Auto) 1.7, Baso % (Auto) 0.2, Absolute Neuts (auto) 10.0 H, Absolute Lymphs (auto) 1.78, Nucleated RBC % 0 12/03/21 10:25: Blood Type A POSITIVE, Antibody Screen NEGATIVE Micro: Microbiology 12/03/21 10:30 Nasal Secretion SARS-CoV-2 Antigen (Rapid) - Final ROS Constitutional Constitutional: Denies chills, fatigue, fever(s), poor appetite or weakness Eyes Eyes: Denies blurry vision, change in vision, seeing flashes or spots in vision ENT HEENT: Denies dizziness, headache(s), loss taste/smell or sore throat Cardiovascular Cardiovascular: Denies chest pain, dizziness, dyspnea, irregular heart rhythm, palpitations or rapid heart rate Respiratory/Chest Respiratory/Chest: Denies chest tightness, cough, dyspnea or breast pain Gastrointestinal Gastrointestinal: Denies abdominal pain, constipation or vomiting Genitourinary Genitourinary: Denies dysuria or flank pain Musculoskeletal Musculoskeletal: Denies difficulty walking, joint pain, limited range of motion or numbness Neurologic Neurologic: Denies abnormal movements, abnormal speech, dizziness, numbness, seizure-like activity or syncope Psychiatric Psychiatric: Denies anxiety, behavioral changes, change in appetite, confusion, depression or suicidal thoughts Physical Exam Const alert, oriented x3 and no apparent distress General Appearance: cooperative and comfortable Resp normal respiratory effort Cardio regular rate GI normal to inspection, nondistended, normoactive bowel sounds GI Narrative: uterus is firm below umbilicus Palpation: soft Back/Spine no CVA tenderness and thoraco-lumbar ROM normal Extremity normal to inspection, no clubbing, cyanosis or edema, no calf tenderness and no pedal edema Psych mental status grossly normal, thought process normal, cooperative, affect normal, speech normal, activity/motor behavior normal, denies homicidal ideation and denies suicidal ideation Assessment & Plan (1) Status post vaginal delivery: COMMENT: ANDREY DOZIER PLAN: Plan s/p PPD #1 1. routine post delivery care 2. breast feeding- support given 3. rh positive 4. rubella immune 5. dc to home today
[2021-12-04 08:04] VITALS: BP 103/73; PULSE 87; RESP 16; TEMP 36.1; O2SAT 97
[2021-12-04] MEDS: Calcium Carbonate 500 MG Tablet PO (08:13)
[2021-12-04] MEDS: Calcium Carb/Vitamin D 1 TABLET Tablet PO (08:14)
[2021-12-04] MEDS: Acetaminophen 500 MG Tablet 1000 MG PO (10:41)
[2021-12-04 15:38] VITALS: BP 113/74; PULSE 92; RESP 16; TEMP 36.3
== END 2021-12-04 16:35 | disposition home or self-care (01) | DRG 807 ==
LOC: WPOUT 10:24 → WP 10:24
PROVIDERS: Obstetrics & Gynecology; Admitting Provider Obstetrics & Gynecology; Referring Provider Obstetrics & Gynecology; Visit Provider Obstetrics & Gynecology
DX: O99.284 Endocrine, nutritional and metabolic diseases complicating childbirth (principal); Z37.0 Single live birth; E03.9 Hypothyroidism, unspecified; L65.9 Nonscarring hair loss, unspecified; M62.441 Contracture of muscle, right hand; M62.442 Contracture of muscle, left hand; O99.892 Other specified diseases and conditions complicating childbirth; Z3A.39 39 weeks gestation of pregnancy; O70.0 First degree perineal laceration during delivery; Z87.891 Personal history of nicotine dependence; O99.72 Diseases of the skin and subcutaneous tissue complicating childbirth; Z79.890 Hormone replacement therapy
CPT/HCPCS: 59025; 59050; 84112; 85025; 86850; 86900; 86901; 87426; 99218; J7120; G0378

== ENCOUNTER → 2022-01-19 | Outpatient (CLI) | payer OTHER, SELFPAY ==
[2022-01-19 17:51] LABS: ALB/GLOB Ratio 1.2 RATIO (0.9-2.4); AST(SGOT) 16 U/L (15-37); Alanine Aminotransfer ALT/SGPT 40 U/L (13-56); Albumin, Serum 3.7 g/dL (3.2-5.0); Alkaline Phosphatase 67 U/L (45-117); Anion Gap 9 (5-15); BUN 11 mg/dL (7-18); BUN/Creat Ratio 28.9 RATIO (10-20); Calcium,Total 9.2 mg/dL (8.5-10.1); Chloride 104 mmol/L (98-107); Creatinine, Serum 0.38 mg/dL (0.55-1.02); EST Glomerular Filtration Rate 209 mL/min (>60); Est Glom Filt Rate - Afr Amer 253 mL/min (>60); Globulin 3.2 g/dL (2.2-4.2); Glucose 99 mg/dL (74-106); Magnesium 1.9 mg/dL (1.6-2.6); Potassium 3.9 mmol/L (3.5-5.1); Protein, Total 6.9 g/dL (6.4-8.2); Sodium Level 141 mmol/L (136-145); T4 Free Direct 4.67 ng/dL (0.76-1.46); Thyroid Stim Hormone (TSH) < 0.01 uIU/mL (0.358-3.74)
== END | disposition home or self-care (01) ==
LOC: LAB 16:08
PROVIDERS: Referring Provider Internal Medicine Endocrinology, Diabetes & Metabolism; Visit Provider Internal Medicine Endocrinology, Diabetes & Metabolism
DX: E03.8 Other specified hypothyroidism (principal); E83.42 Hypomagnesemia
CPT/HCPCS: 36415; 80053; 83735; 84439; 84443

== ENCOUNTER → 2022-02-08 | Outpatient (CLI) | payer OTHER, SELFPAY ==
[2022-02-08 14:49] LABS: Free T3 3.5 pg/mL (2.18-3.98); T4 Free Direct 1.35 ng/dL (0.76-1.46)
== END | disposition home or self-care (01) ==
LOC: LAB 13:26
PROVIDERS: Referring Provider Nurse Practitioner Adult Health; Visit Provider Nurse Practitioner Adult Health
DX: E03.8 Other specified hypothyroidism (principal)
CPT/HCPCS: 36415; 84439; 84481

== ENCOUNTER → 2022-03-01 | Outpatient (CLI) | payer OTHER, SELFPAY ==
[2022-03-01 16:05] LABS: Free T3 1.7 pg/mL (2.18-3.98); T4 Free Direct 0.65 ng/dL (0.76-1.46); Thyroid Stim Hormone (TSH) 5.28 uIU/mL (0.358-3.74)
== END | disposition home or self-care (01) ==
LOC: LAB 14:38
PROVIDERS: Referring Provider Internal Medicine Endocrinology, Diabetes & Metabolism; Visit Provider Internal Medicine Endocrinology, Diabetes & Metabolism
DX: E03.8 Other specified hypothyroidism (principal)
CPT/HCPCS: 36415; 84439; 84443; 84481

== ENCOUNTER → 2022-04-20 | Outpatient (CLI) | payer OTHER, SELFPAY ==
[2022-04-20 14:09] LABS: T4 Free Direct 0.73 ng/dL (0.76-1.46)
== END | disposition home or self-care (01) ==
LOC: LAB 13:15
PROVIDERS: Referring Provider Internal Medicine Endocrinology, Diabetes & Metabolism; Visit Provider Internal Medicine Endocrinology, Diabetes & Metabolism
DX: E03.8 Other specified hypothyroidism (principal)
CPT/HCPCS: 36415; 84439; 84443; 84481

== ENCOUNTER → 2022-05-11 | Outpatient (CLI) | payer OTHER, SELFPAY ==
[2022-05-11 16:49] LABS: Free T3 2.2 pg/mL (2.18-3.98); T4 Free Direct 0.93 ng/dL (0.76-1.46)
== END | disposition home or self-care (01) ==
LOC: LAB 15:20
PROVIDERS: Referring Provider Nurse Practitioner Adult Health; Visit Provider Nurse Practitioner Adult Health
DX: E03.8 Other specified hypothyroidism (principal)
CPT/HCPCS: 36415; 84439; 84481

== ENCOUNTER → 2022-06-03 | Outpatient (CLI) | payer OTHER, SELFPAY ==
[2022-06-03 15:37] LABS: Free T3 2.2 pg/mL (2.18-3.98); T4 Free Direct 1.01 ng/dL (0.76-1.46); Thyroid Stim Hormone (TSH) 7.11 uIU/mL (0.358-3.74)
== END | disposition home or self-care (01) ==
LOC: LAB 14:29
PROVIDERS: Visit Provider Nurse Practitioner Adult Health
DX: E03.8 Other specified hypothyroidism (principal)
CPT/HCPCS: 36415; 84439; 84443; 84481

== ENCOUNTER → 2022-07-19 | Outpatient (CLI) | payer OTHER, SELFPAY ==
[2022-07-19 15:00] LABS: Vitamin D,25 Hydroxy 63.7 ng/mL
[2022-07-19 15:09] LABS: ALB/GLOB Ratio 1.2 RATIO (0.9-2.4); AST(SGOT) 11 U/L (15-37); Alanine Aminotransfer ALT/SGPT 20 U/L (13-56); Albumin, Serum 3.9 g/dL (3.2-5.0); Alkaline Phosphatase 67 U/L (45-117); Anion Gap 8 (5-15); BUN 12 mg/dL (7-18); BUN/Creat Ratio 22.5 RATIO (10-20); Calcium,Total 9.1 mg/dL (8.5-10.1); Chloride 104 mmol/L (98-107); Creatinine, Serum 0.53 mg/dL (0.55-1.02); EST Glomerular Filtration Rate 141 mL/min (>60); Est Glom Filt Rate - Afr Amer 171 mL/min (>60); Free T3 2.3 pg/mL (2.18-3.98); Globulin 3.3 g/dL (2.2-4.2); Glucose 92 mg/dL (74-106); Potassium 3.6 mmol/L (3.5-5.1); Protein, Total 7.2 g/dL (6.4-8.2); Sodium Level 139 mmol/L (136-145); Thyroid Stim Hormone (TSH) 2.62 uIU/mL (0.358-3.74)
== END | disposition home or self-care (01) ==
LOC: LAB 13:45
PROVIDERS: Referring Provider Nurse Practitioner Adult Health; Visit Provider Nurse Practitioner Adult Health
DX: E03.8 Other specified hypothyroidism (principal); E55.9 Vitamin D deficiency, unspecified
CPT/HCPCS: 36415; 80053; 82306; 84439; 84443; 84481

== ENCOUNTER → 2022-11-12 | Outpatient (CLI) | payer OTHER, SELFPAY ==
[2022-11-12 17:38] LABS: ALB/GLOB Ratio 1.2 RATIO (0.9-2.4); AST(SGOT) 13 U/L (15-37); Alanine Aminotransfer ALT/SGPT 19 U/L (13-56); Albumin, Serum 3.9 g/dL (3.2-5.0); Alkaline Phosphatase 58 U/L (45-117); Anion Gap 5 (5-15); BUN 11 mg/dL (7-18); BUN/Creat Ratio 16.3 RATIO (10-20); Calcium,Total 9.1 mg/dL (8.5-10.1); Chloride 107 mmol/L (98-107); Creatinine, Serum 0.68 mg/dL (0.55-1.02); EST Glomerular Filtration Rate 107 mL/min (>60); Est Glom Filt Rate - Afr Amer 130 mL/min (>60); Globulin 3.2 g/dL (2.2-4.2); Glucose 104 mg/dL (74-106); Potassium 3.6 mmol/L (3.5-5.1); Protein, Total 7.1 g/dL (6.4-8.2); Sodium Level 140 mmol/L (136-145); Thyroid Stim Hormone (TSH) 3.06 uIU/mL (0.358-3.74)
== END | disposition home or self-care (01) ==
LOC: LAB 16:23
PROVIDERS: Referring Provider Internal Medicine Endocrinology, Diabetes & Metabolism; Visit Provider Internal Medicine Endocrinology, Diabetes & Metabolism
DX: E03.8 Other specified hypothyroidism (principal)
CPT/HCPCS: 36415; 80053; 84443

== ENCOUNTER → 2023-05-13 | Outpatient (CLI) | payer OTHER, SELFPAY ==
[2023-05-13 17:08] LABS: ALB/GLOB Ratio 1.2 RATIO (0.9-2.4); AST(SGOT) 11 U/L (15-37); Alanine Aminotransfer ALT/SGPT 19 U/L (13-56); Albumin, Serum 3.8 g/dL (3.2-5.0); Alkaline Phosphatase 62 U/L (45-117); Anion Gap 6 (5-15); BUN 8 mg/dL (7-18); BUN/Creat Ratio 14.8 RATIO (10-20); Calcium,Total 8.9 mg/dL (8.5-10.1); Chloride 105 mmol/L (98-107); Creatinine, Serum 0.54 mg/dL (0.55-1.02); EST Glomerular Filtration Rate 138 mL/min (>60); Est Glom Filt Rate - Afr Amer 167 mL/min (>60); Globulin 3.2 g/dL (2.2-4.2); Glucose 100 mg/dL (74-106); Potassium 3.6 mmol/L (3.5-5.1); Sodium Level 139 mmol/L (136-145); Thyroid Stim Hormone (TSH) 1.85 uIU/mL (0.358-3.74)
== END | disposition home or self-care (01) ==
LOC: LAB 14:51
PROVIDERS: Referring Provider Internal Medicine Endocrinology, Diabetes & Metabolism; Visit Provider Internal Medicine Endocrinology, Diabetes & Metabolism
DX: E03.8 Other specified hypothyroidism (principal); E83.42 Hypomagnesemia
CPT/HCPCS: 36415; 80053; 83735; 84443

== ENCOUNTER → 2024-01-05 | Outpatient (CLI) | payer OTHER, SELFPAY ==
[2024-01-05 10:46] LABS: Vitamin D,25 Hydroxy 69.4 ng/mL
[2024-01-05 11:22] LABS: ALB/GLOB Ratio 1.1 RATIO (0.9-2.4); AST(SGOT) 14 U/L (15-37); Alanine Aminotransfer ALT/SGPT 19 U/L (13-56); Albumin, Serum 3.8 g/dL (3.2-5.0); Alkaline Phosphatase 48 U/L (45-117); Anion Gap 6 (5-15); BUN 7 mg/dL (7-18); BUN/Creat Ratio 14.7 RATIO (10-20); Calcium,Total 8.9 mg/dL (8.5-10.1); Chloride 106 mmol/L (98-107); Creatinine, Serum 0.48 mg/dL (0.55-1.02); EST Glomerular Filtration Rate 159 mL/min (>60); Est Glom Filt Rate - Afr Amer 193 mL/min (>60); Globulin 3.4 g/dL (2.2-4.2); Glucose 75 mg/dL (74-106); Potassium 3.7 mmol/L (3.5-5.1); Protein, Total 7.2 g/dL (6.4-8.2); Sodium Level 139 mmol/L (136-145)
== END | disposition home or self-care (01) ==
LOC: LAB 09:11
PROVIDERS: Referring Provider Internal Medicine Endocrinology, Diabetes & Metabolism; Visit Provider Internal Medicine Endocrinology, Diabetes & Metabolism
DX: E03.8 Other specified hypothyroidism (principal); E55.9 Vitamin D deficiency, unspecified
CPT/HCPCS: 80053; 82306; 84443

== ENCOUNTER → 2024-02-08 | Outpatient (CLI) | payer OTHER, SELFPAY ==
[2024-02-08 13:59] LABS: ALB/GLOB Ratio 1.1 RATIO (0.9-2.4); AST(SGOT) 10 U/L (15-37); Alanine Aminotransfer ALT/SGPT 21 U/L (13-56); Albumin, Serum 3.9 g/dL (3.2-5.0); Alkaline Phosphatase 44 U/L (45-117); Anion Gap 4 (5-15); BUN 10 mg/dL (7-18); BUN/Creat Ratio 19.9 RATIO (10-20); Chloride 107 mmol/L (98-107); EST Glomerular Filtration Rate 150 mL/min (>60); Est Glom Filt Rate - Afr Amer 181 mL/min (>60); Globulin 3.4 g/dL (2.2-4.2); Glucose 76 mg/dL (74-106); Potassium 3.7 mmol/L (3.5-5.1); Protein, Total 7.3 g/dL (6.4-8.2); Sodium Level 138 mmol/L (136-145); T4 Free Direct 1.15 ng/dL (0.76-1.46)
[2024-02-10 08:12] LABS: PROGESTERONE 9.4 ng/mL (.)
== END | disposition home or self-care (01) ==
LOC: LAB 13:03
PROVIDERS: Referring Provider Internal Medicine Endocrinology, Diabetes & Metabolism; Visit Provider Internal Medicine Endocrinology, Diabetes & Metabolism
DX: E03.8 Other specified hypothyroidism (principal); N97.0 Female infertility associated with anovulation
CPT/HCPCS: 36415; 80053; 84144; 84439; 84443

== ENCOUNTER → 2024-04-03 | Outpatient (CLI) | payer OTHER, SELFPAY ==
[2024-04-03 10:59] LABS: T4 Free Direct 1.52 ng/dL (0.76-1.46)
== END | disposition home or self-care (01) ==
LOC: LAB 09:13
PROVIDERS: Referring Provider Physician Assistant Medical; Visit Provider Physician Assistant Medical
DX: E03.8 Other specified hypothyroidism (principal)
CPT/HCPCS: 36415; 84439; 84443

== ENCOUNTER → 2024-05-22 | Outpatient (CLI) | payer OTHER, SELFPAY ==
[2024-05-23 08:09] LABS: PROGESTERONE 32.4 ng/mL (.)
== END | disposition home or self-care (01) ==
LOC: LAB 09:06
DX: Z13.29 Encounter for screening for other suspected endocrine disorder (principal)
CPT/HCPCS: 36415; 84144

== ENCOUNTER → 2024-07-03 | Outpatient (CLI) | payer OTHER, SELFPAY ==
[2024-07-03 11:37] LABS: ALB/GLOB Ratio 1.1 RATIO (0.9-2.4); AST(SGOT) 14 U/L (15-37); Alanine Aminotransfer ALT/SGPT 50 U/L (13-56); Albumin, Serum 3.6 g/dL (3.2-5.0); Alkaline Phosphatase 50 U/L (45-117); Anion Gap 8 (5-15); BUN 9 mg/dL (7-18); BUN/Creat Ratio 18.8 RATIO (10-20); Calcium,Total 9.1 mg/dL (8.5-10.1); Chloride 104 mmol/L (98-107); Creatinine, Serum 0.48 mg/dL (0.55-1.02); EST Glomerular Filtration Rate 157 mL/min (>60); Est Glom Filt Rate - Afr Amer 190 mL/min (>60); Globulin 3.4 g/dL (2.2-4.2); Glucose 97 mg/dL (74-106); Potassium 3.6 mmol/L (3.5-5.1); Sodium Level 140 mmol/L (136-145); T4 Free Direct 1.19 ng/dL (0.76-1.46)
== END | disposition home or self-care (01) ==
LOC: LAB 10:04
PROVIDERS: Referring Provider Internal Medicine Endocrinology, Diabetes & Metabolism; Visit Provider Internal Medicine Endocrinology, Diabetes & Metabolism
DX: E03.8 Other specified hypothyroidism (principal); E55.9 Vitamin D deficiency, unspecified
CPT/HCPCS: 36415; 80053; 82306; 84439; 84443

== ENCOUNTER → 2024-08-20 | Outpatient (CLI) | payer BC, SELFPAY | END | disposition home or self-care (01) | LOC: LAB 12:15 | PROVIDERS: Referring Provider Physician Assistant; Visit Provider Physician Assistant | DX: E03.9 Hypothyroidism, unspecified (principal) | CPT/HCPCS: 36415; 84439; 84443 ==

== ENCOUNTER → 2024-08-23 | Outpatient (CLI) | payer BC, SELFPAY ==
[2024-08-27 03:06] LABS: Anti-Mullerian Hormone,Serum 2.05 ng/mL (.)
== END | disposition home or self-care (01) ==
PROVIDERS: PCP Physician Assistant
DX: Z31.41 Encounter for fertility testing (principal)
CPT/HCPCS: 36415; 83516

== ENCOUNTER → 2024-10-03 | Outpatient (CLI) | payer BC, SELFPAY ==
[2024-10-03 10:25] LABS: ALB/GLOB Ratio 1.4 RATIO (0.9-2.4); AST(SGOT) 18 U/L (<=31); Alanine Aminotransfer ALT/SGPT 21 U/L (<=34); Albumin, Serum 4.1 g/dL (3.5-5.0); Alkaline Phosphatase 48 U/L (35-104); Anion Gap 10 (5-15); BUN 10 mg/dL (4-19); BUN/Creat Ratio 25.7 RATIO (10-20); Calcium,Total 9.4 mg/dL (7.6-11.0); Carbon Dioxide 24.9 mmol/L (21.0-32.0); Chloride 104 mmol/L (98-108); Creatinine, Serum 0.38 mg/dL (0.70-1.20); EST Glomerular Filtration Rate 135 (>60); Glucose 84 mg/dL (70-99); Potassium 4.1 mmol/L (3.3-5.1); Protein, Total 7.1 g/dL (5.9-8.4); Sodium Level 139 mmol/L (133-145); Total Bilirubin 0.55 mg/dL (0.00-1.30)
== END | disposition home or self-care (01) ==
LOC: LAB 08:50
PROVIDERS: PCP Physician Assistant; Referring Provider Physician Assistant; Visit Provider Physician Assistant
DX: E03.9 Hypothyroidism, unspecified (principal)
CPT/HCPCS: 36415; 80053; 84439; 84443

== ENCOUNTER → 2024-11-13 | Outpatient (CLI) | payer BC, MEDICAID, SELFPAY | END | disposition home or self-care (01) | LOC: LAB 10:13 | PROVIDERS: PCP Physician Assistant; Referring Provider Dermatology Pediatric Dermatology; Visit Provider Dermatology Pediatric Dermatology | DX: L63.0 Alopecia (capitis) totalis (principal); E06.3 Autoimmune thyroiditis; L20.89 Other atopic dermatitis; Z79.899 Other long term (current) drug therapy | CPT/HCPCS: 36415; 80074; 86480 ==

== ENCOUNTER → 2024-12-25 | Outpatient (CLI) | payer MEDICAID, SELFPAY ==
[2024-12-25 11:49] LABS: AST(SGOT) 14 U/L (<=31); Alanine Aminotransfer ALT/SGPT 13 U/L (<=34); Albumin, Serum 4.5 g/dL (3.5-5.0); Alkaline Phosphatase 33 U/L (35-104); Anion Gap 10 (5-15); BUN 11 mg/dL (4-19); BUN/Creat Ratio 22.9 RATIO (10-20); Calcium,Total 9.6 mg/dL (7.6-11.0); Carbon Dioxide 24.6 mmol/L (21.0-32.0); Chloride 103 mmol/L (98-108); Globulin 2.6 g/dL (2.2-4.2); Glucose 81 mg/dL (70-99); Potassium 4.0 mmol/L (3.3-5.1); Vitamin D,25 Hydroxy 62.1 ng/mL (30-100)
--- OUTSIDE RECORDS SUMMARY | 2024-12-25 20:08 | XMS RPT_ITS | CCD ---
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 [employer]. It has not been cleared or approved by the Food and Drug Administration. Reference Range: Females 31 - 35y: 0.66 - 8.75 Median 3.00 AMH concentrations of >= 1.06 ng/mL is correlated with a better response to ovarian stimulation, produced more retrievable oocytes and higher odds of live according to Adrianoer et al. Fertility and Sterility. 2010: 94:5675-4166. The current AMH test method correlates with the study method with a slope of 0.94. Females at risk of ovarian hyperstimulation syndrome or polycystic ovarian syndrome (PCOS) may exhibit elevated serum AMH concentrations. AMH levels from PCOS patients may be 2 to 5 fold higher than age-appropriate reference interval values. Granulosa cell tumors of the ovary may secrete AMH along with other tumor markers. Elevated AMH is not specific for malignancy, and the assay should not be used exclusively to diagnose or exclude an AMH-secreting ovarian tumor. Performed at: [facility] [address], [place] [id number] [employer] Counselor: Jax Azevedo MD, Phone: [phone] Performed By: #### L 803.3000 #### [facility] [place], [address] Flecainide [Mass/Vol]on 08-14 Anti-Mullerian Hormone 2.05 ng/mL . [facility] Comment on above: For assays employing antibodies, the possibility exists forinterference by heterophile antibodies in the samples.11.Miguelina Allen. Interferences in Immunoassays - still a threat. Clin. Chem. 2000; 46: 3435-5709.This test was developed and its performance characteristicsdetermined by [facility]. It has not been cleared or approvedby the Food and Drug Administration.Reference Range:Females 31 - 35y: 0.66 - 8.75Median 3.00AMH concentrations of >= 1.06 ng/mL is correlated with abetter response to ovarian stimulation, produced moreretrievable oocytes and higher odds of live accordingto Adrianoer et al. Fertility and Sterility. 2010:94:4567-1327. The current AMH test method correlates withthe study method with a slope of 0.94.Females at risk of ovarian hyperstimulation syndrome orpolycystic ovarian syndrome (PCOS) may exhibit elevatedserum AMH concentrations. AMH levels from PCOS patientsmay be 2 to 5 fold higher than age-appropriate referenceinterval values.Granulosa cell tumors of the ovary may secrete AMH alongwith other tumor markers. Elevated AMH is not specific formalignancy, and the assay should not be used exclusively todiagnose or exclude an AMH-secreting ovarian tumor.Performed at: [facility], [place] [id number] Director: Jax Azevedo MD, Phone: [phone] Serum or plasma flecainide m easurement (mass/volume)on 08-23-2024 Flecainide [Mass/Vol] 2.05 ng/mL . [facility] Comment on above: For assays employing antibodies, the possibility exists forinterference by heterophile antibodies in the samples.11.Miguelina Owens Interferences in Immunoassays - still a threat. Clin. Chem. 2000; 46: 5893-3939.This test was developed and its performance characteristicsdetermined by [facility]. It has not been cleared or approvedby the Food and Drug Administration.Reference Range:Females 31 - 35y: 0.66 - 8.75Median 3.00AMH concentrations of >= 1.06 ng/mL is correlated with abetter response to ovarian stimulation, produced moreretrievable oocytes and higher odds of live accordingto Jose M et al. Fertility and Sterility. 2010:94:3551-5814. The current AMH test method correlates withthe study method with a slope of 0.94.Females at risk of ovarian hyperstimulation syndrome orpolycystic ovarian syndrome (PCOS) may exhibit elevatedserum AMH concentrations. AMH levels from PCOS patientsmay be 2 to 5 fold higher than age-appropriate referenceinterval values.Granulosa cell tumors of the ovary may secrete AMH alongwith other tumor markers. Elevated AMH is not specific formalignancy, and the assay should not be used exclusively todiagnose or exclude an AMH-secreting ovarian tumor.Performed at: [facility] [id number] [place] [id number] Director: Jax Azevedo MD, Phone: [phone] T4 Free Directon 08-20-2024 T4 FREE DIRECT 1.60 ng/dL High 0.76-1.46 [facility] Comment on above: Performed By: #### L 500.4050, L506.1000, L501.9520 #### [facility] [address] [place], [place] [address]all [facility]. [place], [place], [address] T4 freeOrdered By: Rekha angelo on 08-20-2024 Free T4 [Mass/Vol] 1.60 ng/dL High 0.76-1.46 [facility] TSH DL <= 0.005 mIU/L QnOrde red By: Rekha Raymond on 08-20-2024 Thyroid Stimulating Hormone (TSH) 2.230 uIU/mL 0.300-4.200 [facility] TSH Qn 2.230 uIU/mL 0.300-4.200 [facility] Thyroid Stim Hormone (TSH)on 08-20-2024 TSH 2.230 uIU/mL Normal 0.300-4.200 [facility] Comment on above: Performed By: #### L 500.4050, L506.1000, L501.9520 #### [facility] [address] [place], [address] COMPREHENSIVE METABOLIC PANE Jamari 08-03-2024 Albumin [Mass/Vol] 4.3 g/dL Normal 3.6-5.1 [facility] Comment on above: Performed By: #### 1 0231, 7600 #### [facility] [place] [address] Information Analyst: Gerardo Easley MD Albumin/Globulin [Mass ratio] 1.7 {ratio} Normal 1.0-2.5 [facility] Comment on above: Performed By: #### 1 0231, 7600 #### [facility] [place] [address] Information Analyst: Gerardo Easley MD ALP [Catalytic activity/Vol] 36 U/L Normal 31-125 [facility] Comment on above: Performed By: #### 1 0231, 7600 #### [facility] [place] [address] Information Analyst: Gerardo Easley MD ALT [Catalytic activity/Vol] 14 U/L Normal 6-29 [facility] Comment on above: Performed By: #### 1 0231, 7600 #### [facility] [place] [address] Information Analyst: Gerardo Easley MD AST [Catalytic activity/Vol] 13 U/L Normal 10-30 [facility] Comment on above: Performed By: #### 1 0231, 7600 #### [facility] [place] [address] Information Analyst: Gerardo Easley MD Bilirubin [Mass/Vol] 0.6 mg/dL Normal 0.2-1.2 [facility] Comment on above: Performed By: #### 1 023, 7600 #### [facility] of [place] [address] Information Analyst: Gerardo Easley MD Calcium [Mass/Vol] 9.5 mg/dL Normal 8.6-10.2 [facility] Comment on above: Performed By: #### 1 230, 7600 #### [facility] [place] [address] Information Analyst: Gerardo Easley MD Chloride [Moles/Vol] 105 mmol/L Normal 98-110 [facility] Comment on above: Performed By: #### 1 023, 7600 #### [facility] [place] [address] Information Analyst: Gerardo Easley MD CO2 [Moles/Vol] 26 mmol/L Normal 20-32 [facility] Comment on above: Performed By: #### 1 230, 7600 #### [facility] of [place] [address] Information Analyst: Gerardo Easley MD Creatinine [Mass/Vol] 0.38 mg/dL Low 0.50-0.[address] [facility] Comment on above: Performed By: #### 1 023, 7600 #### [facility] [place] [address] Information Analyst: Gerardo Easley MD GFR/1.73 sq M.predicted among non-blacks MDRD (S/P/Bld) [Vol rate/Area] 135 mL/min/{1.73_m2} Normal > OR = 60 [facility] Comment on above: Performed By: #### 1 023, 7600 #### [facility] [place] [address] Information Analyst: Gerardo Easley MD Globulin (S) [Mass/Vol] 2.5 g/dL Normal 1.9-3.7 [facility] Comment on above: Performed By: #### 1 023, 7600 #### [facility] of [address], [address] [place] [address] Information Analyst: Gerardo Easley MD Glucose [Mass/Vol] 79 mg/dL Normal 65-99 [facility] Comment on above: Result Comment: Fasting reference interval Performed By: #### 1 0231, 7600 #### [facility] of [address], [address] [place] [address] Information Analyst: Gerardo Easley MD Potassium [Moles/Vol] 4.2 mmol/L Normal 3.5-5.[address] [facility] [address] [facility] Comment on above: Performed By: #### 1 0231, 7600 #### [facility] [place] [address] Information Analyst: Gerarod Easley MD Protein [Mass/Vol] 6.8 g/dL Normal 6.1-8.1 [facility] Comment on above: Performed By: #### 1 023, 7600 #### [facility] of [address], [address] [place] [address] Information Analyst: Gerardo Easley MD Sodium [Moles/Vol] 140 mmol/L Normal 135-146 [facility] Comment on above: Performed By: #### 1 0231, 7600 #### [facility] [place] [address] Information Analyst: Gerardo Easley MD Urea nitrogen [Mass/Vol] 9 mg/dL Normal 7-25 [facility] Comment on above: Performed By: #### 1 0231, 7600 #### [facility] of [address], [address] [place] [address] Information Analyst: Gerardo Easley MD Urea nitrogen/Creatinine [Mass ratio] 24 mg/mg High 6-22 [facility] Comment on above: Performed By: #### 1 0231, 7600 #### [facility] of [address], [address] [place] [address] Information Analyst: Gerardo Easley MD LIPID PANEL, STANDARD 03- Cholesterol [Mass/Vol] 136 mg/dL Normal <200 [facility] Comment on above: Performed By: #### 1 230, 0 #### [facility] [place] [address] Information Analyst: Gerardo Easley MD Cholesterol in HDL [Mass/Vol] 51 mg/dL Normal > OR = 50 [facility] Comment on above: Performed By: #### 1 230, 0 #### [facility] [address], [address] [place] [address] Information Analyst: Gerardo Easley MD Cholesterol in LDL [Mass/Vol] 70 mg/dL Normal [facility] Comment on above: Result Comment: Refe rence range: <100 Desirable range <100 mg/dL for primary prevention; <70 mg/dL for patients with CHD or diabetic patients with > or = 2 CHD risk factors. LDL-C is now calculated using the Samir calculation, which is a validated novel method providing better accuracy than the Friedewald equation in the estimation of LDL-C. Efren MEEKS et al. KARON. 2013;310(19): 5968-3502 (http://education.[employer]/faq/BCJ663) Performed By: #### 1 230, 7599 #### [facility] [place] [address] Information Analyst: Gerardo Easley MD Cholesterol.total/Petty sterol in HDL [Mass ratio] 2.7 {ratio} Normal <5.0 [facility] Comment on above: Performed By: #### 1 230, 0 #### [facility] [address], [address] [place] [address] Information Analyst: Gerardo Easley MD NON HDL CHOLESTEROL 85 mg/dL (calc) Normal <130 [facility] Comment on above: Result Comment: For patients with diabetes plus 1 major ASCVD risk factor, treating to a non-HDL-C goal of <100 mg/dL (LDL-C of <70 mg/dL) is considered a therapeutic option. Performed By: #### 1 230, 0 #### [facility] [address], [address] [place] [address] Information Analyst: Gerardo Easley MD Triglyceride [Mass/Vol] 73 mg/dL Normal <150 [facility] Comment on above: Performed By: #### 1 0231, 7600 #### [facility] [address], [address] [place] [address] Information Analyst: Gerardo Easley MD Laboratory - Chemistry and C hemistry - challengeon 08-02-2024 Albumin [Mass/Vol] 4.3 g/dL Normal 3.6 - 5.1 g/dL [facility], [facility].; [place] [employer] [facility], [facility]. Albumin/Globulin [Mass ratio] 1.7 {ratio} Normal 1.0 - 2.5 [facility], [facility].; [place] [employer] ALP [Catalytic activity/Vol] 36 U/L Normal 31 - 125 U/L [facility], [facility].; [place] [employer] ALT [Catalytic activity/Vol] 14 U/L Normal 6 - 29 U/L [place] [facility], [facility].; [place] [employer] AST [Catalytic activity/Vol] 13 U/L Normal 10 - 30 U/L [place] [employer], [facility].; [place] [employer] Bilirubin [Mass/Vol] 0.6 mg/dL Normal 0.2 - 1 .2 mg/dL [place] [facility], [facility].; [place] [employer] Calcium [Mass/Vol] 9.5 mg/dL Normal 8.6 - 10. 2 mg/dL [place] [facility], [facility].; [place] [employer] Chloride [Moles/Vol] 105 mmol/L Normal 98 - 11 0 mmol/L [place] [facility], [facility].; [facility] Cholesterol [Mass/Vol] 136 mg/dL Normal [facility], [facility].; [place] [employer] Cholesterol in HDL [Mass/Vol] 51 mg/dL Normal [place] [employer] [place] [employer] Cholesterol in LDL [Mass/Vol] 70 mg/dL Normal [place] [employer] [place] [employer] CO2 [Moles/Vol] 26 mmol/L Normal 20 - 32 mmol/L [facility].; [place] [employer]. Creatinine [Mass/Vol] 0.38 mg/dL Abnormal 0.50 - 0.97 mg/dL [place] [facility].; [place] [employer], [employer]. GFR/1.73 sq M.predicted among non-blacks MDRD (S/P/Bld) [Vol rate/Area] 135 mL/min/{1.73_m2} Normal [place] [facility].; [employer]. Glucose [Mass/Vol] 79 mg/dL Normal 65 - 99 mg/dL [place] [facility].; [employer]. Potassium [Moles/Vol] 4.2 mmol/L Normal 3.5 - 5.3 mmol/L [place] [facility].; [place] [employer]. Protein [Mass/Vol] 6.8 g/dL Normal 6.1 - 8.1 g/dL [place] [facility].; [employer]. Sodium [Moles/Vol] 140 mmol/L Normal 135 - 146 mmol/L [place] [facility].; [employer]. Triglyceride [Mass/Vol] 73 mg/dL Normal [facility].; [employer]. Urea nitrogen [Mass/Vol] 9 mg/dL Normal 7 - 25 mg/dL [place] [facility].; [facility], [employer]. Urea nitrogen/Creatinine [Mass ratio] 24 mg/mg Abnormal 6 - 22 [place] [employer] [facility].; [employer]. No Panel Informationon 08-02 CHOL/HDLC RATIO 2.7 Normal [place] [employer].; [employer]. GLOBULIN 2.5 Normal 1.9 - 3.7 [place] [employer] [facility].; [facility], b[employer]. NON HDL CHOLESTEROL 85 Normal [facility] [employer] [facility].; [place] [employer]. Vitamin D,25 Hydroxyon 07-05 Vitamin D 25-OH 75.0 ng/mL Normal [facility] Comment on above: Result Comment: Poly min D 25(OH) Status Range Deficiency <20 ng/mL (50nmol/L) Insufficiency 20 - 30 ng/mL (50 - 75 nmol/L) Sufficiency 30 - 100 ng/mL (75 - 250 nmol/L) Toxicity >100 ng/mL (>250 nmol/L) Performed By: #### L 500.4050, L506.1000, L501.9520 #### [facility] [address], [id number] DOrdered By: Josh Bear on 07-03-2024 Vitamin D 25-Hydroxy 75.0 ng/mL [facility] Comment on above: Vitamin D 25(OH) Sta tus Range Deficiency <20 ng/mL (50nmol/L) Insufficiency 20 - 30 ng/mL (50 - 75 nmol/L) Sufficiency 30 - 100 ng/mL (75 - 250 nmol/L) Toxicity >100 ng/mL (>250 nmol/L) Albumin to globulin ratioOrd ered By: Adan Bear on 07-03-2024 Albumin/Globulin [Mass ratio] 1.1 {ratio} 0.9-2.4 [facility] Bilirubin, totalOrdered By: Adan Bear on 07-03-2024 Bilirubin [Mass/Vol] 0.60 mg/dL 0.20-1.00 [facility] Comment on above: For patients on eltr ombopag therapy, use of [employer] [place] TBIL is not recommended. Blood urea nitrogen (BUN)/cr eatinine ratioOrdered By: Adan Bear on 07-03-2024 Urea nitrogen/Creatinine [Mass ratio] 18.8 mg/mg 10-20 [facility] Carbon dioxide measurementOr dered By: Adan Bear on 07-03-2024 CO2 [Moles/Vol] 28.0 mmol/L 21.0-32.0 [facility] Chloride measurementOrdered By: Adan Bear on 07-03-2024 Chloride [Moles/Vol] 104 mmol/L 98-107 [facility] Comprehensive Metabolic Prof ilon 07-03-2024 Albumin [Mass/Vol] 3.6 g/dL Normal 3.2-5.0 [facility] Comment on above: Performed By: #### L 500.4050, L506.1000, L501.9520 #### [facility] [address] [place], [address] Albumin/Globulin [Mass ratio] 1.1 {ratio} Normal 0.9-2.4 [facility] Comment on above: Performed By: #### L 500.4050, L506.1000, L501.9520 #### [facility] [address] [place], [address] ALK P 50 U/L Normal 45-117 [facility] Comment on above: Performed By: #### L 500.4050, L506.1000, L501.9520 #### [facility] [address] [place], [address] ALT [Catalytic activity/Vol] 50 U/L Normal 13-56 [facility] Comment on above: Performed By: #### L 500.4050, L506.1000, L501.9520 #### [facility] [address] [place], [address] AST [Catalytic activity/Vol] 14 U/L Low 15-37 [facility] Comment on above: Performed By: #### L 500.4050, L506.1000, L501.9520 #### [facility] [address] [place], [address] Bilirubin [Mass/Vol] 0.60 mg/dL Normal 0.20-1.00 [facility] Comment on above: Result Comment: For patients on eltrombopag therapy, use of [employer] [place] TBIL is not recommended. Performed By: #### L 500.4050, L506.1000, L501.9520 #### [facility] [address] [place], [address] BUN/CRE 18.8 RATIO Normal 10-20 [facility] Comment on above: Performed By: #### L 500.4050, L506.1000, L501.9520 #### [facility] [address] [place], [address] CA,Total 9.1 mg/dL Normal 8.5-10.1 [facility] Comment on above: Performed By: #### L 500.4050, L506.1000, L501.9520 #### [facility] [address] [place], [address] Chloride [Moles/Vol] 104 mmol/L Normal 98-107 [facility] Comment on above: Performed By: #### L 500.4050, L506.1000, L501.9520 #### [facility] [address] [place], [address] CO2 [Moles/Vol] 28.0 mmol/L Normal 21.0-32.0 [facility] Comment on above: Performed By: #### L 500.4050, L506.1000, L501.9520 #### [facility] [address] [place], [address] Creatinine [Mass/Vol] 0.48 mg/dL Low 0.55-1.02 [facility] Comment on above: Result Comment: The validity of the calculated GFR GFRAA in patients over 70 years has not been determined. Clinical correlation is essential. Performed By: #### L 500.4050, L506.1000, L501.9520 #### [facility] [address] [place], [address] EST GFR - AA 190 mL/min Normal >60 [facility] Comment on above: Result Comment: Afri can Citizen [place] GFR Calc Performed By: #### L 500.4050, L506.1000, L501.9520 #### [facility] [address] [place], [address] GAP 8 Normal 5-15 [facility] Comment on above: Performed By: #### L 500.4050, L506.1000, L501.9520 #### [facility] [address] [place], [address] GFR/1.73 sq M.predicted among non-blacks MDRD (S/P/Bld) [Vol rate/Area] 157 mL/min/{1.73_m2} Normal >60 [facility] Comment on above: Result Comment: Non- GFR Calc Performed By: #### L 500.4050, L506.1000, L501.9520 #### [facility] [address] [place], [address] Globulin (S) [Mass/Vol] 3.4 g/dL Normal 2.2-4.2 [facility] Comment on above: Performed By: #### L 500.4050, L506.1000, L501.9520 #### [facility] [address] [place], [address] Glucose [Mass/Vol] 97 mg/dL Normal 74-106 [facility] Comment on above: Performed By: #### L 500.4050, L506.1000, L501.9520 #### [facility] [address] [place], [address] Potassium [Moles/Vol] 3.6 mmol/L Normal 3.5-5.1 [facility] Comment on above: Performed By: #### L 500.4050, L506.1000, L501.9520 #### [facility] [address] [place], [address] Sodium [Moles/Vol] 140 mmol/L Normal 136-145 [facility] Comment on above: Performed By: #### L 500.4050, L506.1000, L501.9520 #### [facility] [address] [place], [address] T PROT 7.0 g/dL Normal 6.4-8.2 [facility] Comment on above: Performed By: #### L 500.4050, L506.1000, L501.9520 #### [facility] [address] [place], [address] Urea nitrogen [Mass/Vol] 9 mg/dL Normal 7-18 [facility] Comment on above: Performed By: #### L 500.4050, L506.1000, L501.9520 #### [facility] [address] [place], [address] Direct serum free thyroxine (FT4) measurementOrdered By: Adan Bear on 07-03-2024 Free T4 [Mass/Vol] 1.19 ng/dL 0.76-1.46 [facility] Estimated glomerular filtrat ion rate (GFR) AmericanOrdered By: Adan Bear on 07-03-2024 Estimated GFR (MDRD) Amer 190 mL/min >60 [facility] Comment on above: GFR Calc Glomerular filtration rate ( GFR) estimationOrdered By: Adan Bear on 07-03-2024 Estimated GFR (MDRD) Non-Af Amer 157 mL/min >60 [facility] Comment on above: Non- GFR Calc GFR/1.73 sq M.predicted among non-blacks MDRD (S/P/Bld) [Vol rate/Area] 157 mL/min/{1.73_m2} >60 [facility] Comment on above: Non- GFR Calc Glucose measurementOrdered B y: Adan Bear on 07-03-2024 Glucose [Mass/Vol] 97 mg/dL 74-106 [facility] - Chemistry and C hemistry - challengeOrdered By: Adan Bear on 07-03-2024 AST [Catalytic activity/Vol] 14 U/L Low 15-37 [facility] Potassium measurementOrdered By: Adan Bear on 07-03-2024 Potassium [Moles/Vol] 3.6 mmol/L 3.5-5.1 [facility] Serum anion gap measurementO rdered By: Adan Bear on 07-03-2024 Anion gap [Moles/Vol] 8 mmol/L 5-15 [facility] Serum globulin measurementOr dered By: Adan Bear on 07-03-2024 Globulin (S) [Mass/Vol] 3.4 g/dL 2.2-4.2 [facility] Serum or plasma alanine stuart otransferase (ALT) measurementOrdered By: Adan Bear on 07-03-2024 ALT [Catalytic activity/Vol] 50 U/L 13-56 [facility] Serum or plasma albumin madelin urement (mass/volume)Ordered By: Adan Bear on 07-03-2024 Albumin [Mass/Vol] 3.6 g/dL 3.2-5.0 [facility] Serum or plasma alkaline rodrigo sphatase measurementOrdered By: Adan Bear on 07-03-2024 ALP [Catalytic activity/Vol] 50 U/L 45-117 [facility] Serum or plasma calcium madelin urement (mass/volume)Ordered By: Adan Bear on 07-03-2024 Calcium [Mass/Vol] 9.1 mg/dL 8.5-10.1 [facility] Serum or plasma creatinine m easurement (mass/volume)Ordered By: Adan Bear on 07-03-2024 Creatinine [Mass/Vol] 0.48 mg/dL Low 0.55-1.02 [facility] Comment on above: The validity of the calculated GFR & GFRAA in patients over 70 years has not been determined. Clinical correlation is essential. Serum or plasma thyroid stim ulating hormone (TSH) measurement (units/volume)Ordered By: Adan Bear on 07-03-2024 TSH Qn 3.950 uIU/mL High 0.358-3.740 [facility] Serum or plasma urea nitroge n measurement (mass/volume)Ordered By: Adan Bear on 07-03-2024 Urea nitrogen [Mass/Vol] 9 mg/dL 7-18 [facility] Sodium levelOrdered By: Rogerio Bear on 07-03-2024 Sodium [Moles/Vol] 140 mmol/L 136-145 [facility] T4 Free Directon 07-03-2024 T4 FREE DIRECT 1.19 ng/dL Normal 0.76-1.46 [facility] Comment on above: Performed By: #### L 500.4050, L506.1000, L501.9520 #### [facility] [address] [place], [address] TSH QnOrdered By: Adan canela on 07-03-2024 Thyroid Stimulating Hormone (TSH) 3.950 uIU/mL High 0.358-3.740 [facility] Thyroid Stim Hormone (TSH)on 07-03-2024 TSH 3.950 uIU/mL High 0.358-3.740 [facility] Comment on above: Performed By: #### L 500.4050, L506.1000, L501.9520 #### [facility] [address] [place], [address] Total proteinOrdered By: Graeme Bear on 07-03-2024 Protein [Mass/Vol] 7.0 g/dL 6.4-8.2 [facility] PROGESTERONE 4317on 05-23-19 25 PROGESTERONE 32.4 ng/mL Normal . [facility] Comment on above: Order Comment: N Result Comment: Foll icular phase 0.1 - 0.9 Luteal phase 1.8 - 23.9 Ovulation phase 0.1 - 12.0 First trimester 11.0 - 44.3 Second trimester 25.4 - 83.3 Third trimester 58.7 - 214.0 Postmenopausal 0.0 - 0.1 Performed at: [address] [id number] [employer] Counselor: Abhijit Nguyen PhD, Phone: [phone] Performed By: #### L 500.4050, L506.1000, S580.9420 #### [facility] [address] [place], [address] Quantitative serum progester one measurement by electrochemiluminescence immunoassay (on 05-22-2024 Progesterone Level 32.4 ng/mL . [facility] Comment on above: Follicular phase 0.1 - 0.9 Luteal phase 1.8 - 23.9 Ovulation phase 0.1 - 12.0 First trimester 11.0 - 44.3 Second trimester 25.4 - 83.3 Third trimester 58.7 - 214.0 Postmenopausal 0.0 - 0.1Performed at: - [id number] [place], [place] [id number] Director: Abhijit Nguyen PhD, Phone: [phone] T4 Free Directon 04-03-2024 T4 FREE DIRECT 1.52 ng/dL High 0.76-1.46 [facility] Comment on above: Performed By: #### L 500.4050, L506.1000, L501.9520 #### [facility] [address] [place], [address] Thyroid Stim Hormone (TSH)on 04-03-2024 TSH 1.960 uIU/mL Normal 0.358-3.740 [facility] Comment on above: Performed By: #### L 500.4050, L506.1000, L501.9520 #### [facility] [address] 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 Behavioral 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 Required: No Is patient in pain?: No Allergies No Known Allergies Allergy (Verified 03/26/24 12:58) Medications ???Medication ???Instructions ???Recorded ???Confirmed ???Type prenat.vits,brittny,min-iro n-folic 1 tab PO DAILY 02/07/18 03/26/24 History ( Vitamin tablet) calcium 315 mg (as 1 ea PO DAILY 12/04/18 03/26/24 History citrate)-vitamin D3 6.25 mcg (250 unit) tablet levothyroxine 50 mcg tablet 50 mcg PO DAILY 11/05/19 03/26/24 History calcium citrate 950 mg PO DAILY 12/03/21 03/26/24 History potassium chloride 20 mEq oral 20 meq PO DAILY 02/02/22 03/26/24 History packet cholecalciferol (vitamin D3) 50 50 mcg PO QDAY 03/26/24 03/26/24 History mcg (2,000 unit) capsule magnesium 250 mg tablet 250 mg PO QDAY 03/26/24 03/26/24 History Is last menstrual period known: Yes Last Menstrual Period: 03/14/24 Post menopausal: No Patient : No : No [facility]LY [facility], [facility] Medical History Thyroid disorder Alopecia Hypothyroidism Surgical History Status post vaginal delivery History of cholecystectomy ( 11/2018) Hx of foot surgery Family History Mother Cancer bone cancer Grandfather Heart disease Hypertension Social History household members: family housing: house number of children: 2 current occupational status: employed pets and animals: Yes Smoking Status: Former smoker second hand exposure: No alcohol intake: never substance use type: does not use caffeine: Yes what type of physical activity do you participate in: walking frequency: 1-2 times per week seatbelt use: always do you feel safe at home: Yes additional social history: Patient works at [employer] History 2 Elective abortions Hx Para 2 Spontaneous abortions Hx # Term Pregnancies Ectopic pregnancies Hx # Pregnancies Multiple births # of living children 2 Past Pregnancies Del. Date Name GA/Weeks Outcome Route Bth Weight Gen Labor Lgth Anesthesia Del Locatn Provider FOB 09/17/18 Lochlan 39 live - full term 7lbs Male 4 hours none [facility] Dr. Jesica Frances 12/03/21 Racheal 38 live - full term 8lbs 12oz Male [facility] josephine Delivery Date: 09/17/18 Last Updated by: Genevieve Levy no complications HPI Encounter for routine gynecological examination Details: PAM CASTRO is a 33 year old who presents for annual exam. Denies concerns. Not sexually active. Contractures of hands, feet stable. Last PAP: 2020 History of abnormal PAP: no Last mammogram: age 40 Colon cancer screening: age 45 Other preventative health care screenings: [facility] Female Reproductive History Last Menstrual Period: 03/14/24 Cycle Length: 21-35 Questions: metorrhagia: No and sexually active: No ROS Const Constitutional: Denies fatigue, weight gain or weight loss Cardio Card: Denies chest pain Resp Resp: Denies cough or dyspnea on exertion GI GI: Denies abdominal pain, bloating, change in stool character, constipation or vomiting : Reports as per HPI; Denies difficulty voiding, pelvic pain, urinary frequency, urinary incontinence, urinary urgency, vaginal discharge or vaginal pruritus Exam Const General: cooperative, healthy appearing, comfortable and no acute distress Nutritional Appearance: thin Orientation: oriented x3 Limitations: physical limitations (bilateral hand contractures) [facility] Head: normal to inspection Neck Neck: normal visual inspection and no lymphadenopathy Thyroid: thyroid normal Chest Breast inspection: normal inspection of the breasts and normal inspection of the axillae Breast palpation: normal palpation of the breasts and normal palpation of the axillae Resp Effort Inspection: normal respiratory effort GI Inspection: normal to inspection Palpation: soft, no hepatosplenomegaly and nontender General: bladder normal to palpation External Female Exam: normal external appearance and normal appearance of the urethra Urethra: normal appearance of the u (more content not included)... Normal [facility] PROGESTERONE 4317on 02-10-20 24 PROGESTERONE 9.4 ng/mL Normal . [facility] Comment on above: Order Comment: DR TERI STAUFFER CMP,TSH.T4 FREE DR LUIS MICHAEL PROGESTERONE N Result Comment: Foll icular phase 0.1 - 0.9 Luteal phase 1.8 - 23.9 Ovulation phase 0.1 - 12.0 First trimester 11.0 - 44.3 Second trimester 25.4 - 83.3 Third trimester 58.7 - 214.0 Postmenopausal 0.0 - 0.1 Performed at: [address], [place] [id number] [employer] Counselor: Abhijit Nguyen PhD, Phone: [phone] Performed By: #### L 506.0400, L801.2600, L500.4050, L501.9520 #### [facility] [address] [place], [address] Comprehensive Metabolic Prof ilon 02-08-2024 Albumin [Mass/Vol] 3.9 g/dL Normal 3.2-5.0 [facility] Comment on above: Order Comment: DR TERI STAUFFER CMP,TSH.T4 FREE DR LUIS MICHAEL PROGESTERONE N Performed By: #### L 506.0400, L801.2600, L500.4050, L501.9520 #### [facility] [address] [place], [address] Albumin/Globulin [Mass ratio] 1.1 {ratio} Normal 0.9-2.4 [facility] Comment on above: Order Comment: DR TERI STAUFFER CMP,TSH.T4 FREE DR LUIS MICHAEL PROGESTERONE N Performed By: #### L 506.0400, L801.2600, L500.4050, L501.9520 #### [facility] [address] [place], [address] ALK P 44 U/L Low 45-117 [facility] Comment on above: Order Comment: DR TERI STAUFFER CMP,TSH.T4 FREE DR LUIS MICHAEL PROGESTERONE N Performed By: #### L 506.0400, L801.2600, L500.4050, L501.9520 #### [facility] [address] [place], [address] ALT [Catalytic activity/Vol] 21 U/L Normal 13-56 [facility] Comment on above: Order Comment: DR TERI STAUFFER CMP,TSH.T4 FREE DR LUIS IMCHAEL PROGESTERONE N Performed By: #### L 506.0400, L801.2600, L500.4050, L501.9520 #### [facility] [address] [place], [address] AST [Catalytic activity/Vol] 10 U/L Low 15-37 [facility] Comment on above: Order Comment: DR TERI STAUFFER CMP,TSH.T4 FREE DR LUIS MICHAEL PROGESTERONE N Performed By: #### L 506.0400, L801.2600, L500.4050, L501.9520 #### [facility] [address] [place], [address] Bilirubin [Mass/Vol] 0.70 mg/dL Normal 0.20-1.00 [facility] Comment on above: Order Comment: DR TERI STAUFFER CMP,TSH.T4 FREE DR LUIS MICHAEL PROGESTERONE N Result Comment: For patients on eltrombopag therapy, use of Dimension [place] TBIL is not recommended. Performed By: #### L 506.0400, L801.2600, L500.4050, L501.9520 #### [facility] [address] [place], [address] BUN/CRE 19.9 RATIO Normal 10-20 [facility] Comment on above: Order Comment: DR TERI STAUFFER CMP,TSH.T4 FREE DR LUIS MICHAEL PROGESTERONE N Performed By: #### L 506.0400, L801.2600, L500.4050, L501.9520 #### [facility] [address] [place], [address] CA,Total 9.0 mg/dL Normal 8.5-10.1 [facility] Comment on above: Order Comment: DR TERI STAUFFER CMP,TSH.T4 FREE DR LUIS MICHAEL PROGESTERONE N Performed By: #### L 506.0400, L801.2600, L500.4050, L501.9520 #### [facility] [address] [place], [address] Chloride [Moles/Vol] 107 mmol/L Normal 98-107 [facility] Comment on above: Order Comment: DR TERI STAUFFER CMP,TSH.T4 FREE DR LUIS MICHAEL PROGESTERONE N Performed By: #### L 506.0400, L801.2600, L500.4050, L501.9520 #### [facility] [address] [place], [address] CO2 [Moles/Vol] 27.0 mmol/L Normal 21.0-32.0 [facility] Comment on above: Order Comment: DR TERI STAUFFER CMP,TSH.T4 FREE DR LUIS MICHAEL PROGESTERONE N Performed By: #### L 506.0400, L801.2600, L500.4050, L501.9520 #### [facility] [address] [place], [address] Creatinine [Mass/Vol] 0.50 mg/dL Low 0.55-1.02 [facility] Comment on above: Order Comment: DR TERI STAUFFER CMP,TSH.T4 FREE DR LUIS MICHAEL PROGESTERONE N Result Comment: The validity of the calculated GFR GFRAA in patients over 70 years has not been determined. Clinical correlation is essential. Performed By: #### L 506.0400, L801.2600, L500.4050, L501.9520 #### [facility] [address] [place], [address] EST GFR - AA 181 mL/min Normal >60 [facility] Comment on above: Order Comment: DR TERI STAUFFER CMP,TSH.T4 FREE DR LUIS MICHAEL PROGESTERONE N Result Comment: Afri can Citizen [place] GFR Calc Performed By: #### L 506.0400, L801.2600, L500.4050, L501.9520 #### [facility] [address] [place], [address] GAP 4 Low 5-15 [facility] Comment on above: Order Comment: DR TERI STAUFFER CMP,TSH.T4 FREE DR LUIS MICHAEL PROGESTERONE N Performed By: #### L 506.0400, L801.2600, L500.4050, L501.9520 #### [facility] [address] [place], [address] GFR/1.73 sq M.predicted among non-blacks MDRD (S/P/Bld) [Vol rate/Area] 150 mL/min/{1.73_m2} Normal >60 [facility] Comment on above: Order Comment: DR TERI STAUFFER CMP,TSH.T4 FREE DR LUIS MICHAEL PROGESTERONE N Result Comment: Non- GFR Calc Performed By: #### L 506.0400, L801.2600, L500.4050, L501.9520 #### [facility] [address] [place], [address] Globulin (S) [Mass/Vol] 3.4 g/dL Normal 2.2-4.2 [facility] Comment on above: Order Comment: DR TERI STAUFFER CMP,TSH.T4 FREE DR LUIS MICHAEL PROGESTERONE N Performed By: #### L 506.0400, L801.2600, L500.4050, L501.9520 #### [facility] [address] [place], [address] Glucose [Mass/Vol] 76 mg/dL Normal 74-106 [facility] Comment on above: Order Comment: DR TERI STAUFFER CMP,TSH.T4 FREE DR LUIS MICHAEL PROGESTERONE N Performed By: #### L 506.0400, L801.2600, L500.4050, L501.9520 #### [facility] [address] [place], [address] Potassium [Moles/Vol] 3.7 mmol/L Normal 3.5-5.1 [facility] Comment on above: Order Comment: DR TERI STAUFFER CMP,TSH.T4 FREE DR LUIS MICHAEL PROGESTERONE N Performed By: #### L 506.0400, L801.2600, L500.4050, L501.9520 #### [facility] [address] [place], [address] Sodium [Moles/Vol] 138 mmol/L Normal 136-145 [facility] Comment on above: Order Comment: DR TERI STAUFFER CMP,TSH.T4 FREE DR LUIS MICHAEL PROGESTERONE N Performed By: #### L 506.0400, L801.2600, L500.4050, L501.9520 #### [facility] [address] [place], [address] T PROT 7.3 g/dL Normal 6.4-8.2 [facility] Comment on above: Order Comment: DR TERI STAUFFER CMP,TSH.T4 FREE DR LUIS MICHAEL PROGESTERONE N Performed By: #### L 506.0400, L801.2600, L500.4050, L501.9520 #### [facility] [address] [place], [address] Urea nitrogen [Mass/Vol] 10 mg/dL Normal 7-18 [facility] Comment on above: Order Comment: DR TERI STAUFFER CMP,TSH.T4 FREE DR LUIS MICHAEL PROGESTERONE N Performed By: #### L 506.0400, L801.2600, L500.4050, L501.9520 #### [facility] [address] [place], [address] T4 Free Directon 02-08-2024 T4 FREE DIRECT 1.15 ng/dL Normal 0.76-1.46 [facility] Comment on above: Order Comment: DR TERI STAUFFER CMP,TSH.T4 FREE DR LUIS MICHAEL PROGESTERONE N Performed By: #### L 506.0400, L801.2600, L500.4050, L501.9520 #### [facility] [address] [place], [address] Thyroid Stim Hormone (TSH)on 02-08-2024 TSH 2.450 uIU/mL Normal 0.358-3.740 [facility] Comment on above: Order Comment: DR TERI STAUFFER CMP,TSH.T4 FREE DR LUIS MICHAEL PROGESTERONE N Performed By: #### L 506.0400, L801.2600, L500.4050, L501.9520 #### [facility] [address] [place], [address] Comprehensive Metabolic Prof [facility] 01-05-2024 Albumin [Mass/Vol] 3.8 g/dL Normal 3.2-5.0 [facility] Comment on above: Performed By: #### L 500.4050, L506.1000, L501.9520 #### [facility] [address] [place], [address] Albumin/Globulin [Mass ratio] 1.1 {ratio} Normal 0.9-2.4 [facility] Comment on above: Performed By: #### L 500.4050, L506.1000, L501.9520 #### [facility] [address] [place], [address] ALK P 48 U/L Normal 45-117 [facility] Comment on above: Performed By: #### L 500.4050, L506.1000, L501.9520 #### [facility] [address] [place], [address] ALT [Catalytic activity/Vol] 19 U/L Normal 13-56 [facility] Comment on above: Performed By: #### L 500.4050, L506.1000, L501.9520 #### [facility] [address] [place], [address] AST [Catalytic activity/Vol] 14 U/L Low 15-37 [facility] Comment on above: Performed By: #### L 500.4050, L506.1000, L501.9520 #### [facility] [address] [place], [address] Bilirubin [Mass/Vol] 0.70 mg/dL Normal 0.20-1.00 [facility] Comment on above: Result Comment: For patients on eltrombopag therapy, use of Dimension [place] TBIL is not recommended. Performed By: #### L 500.4050, L506.1000, L501.9520 #### [facility] [address] [place], [address] BUN/CRE 14.7 RATIO Normal 10-20 [facility] Comment on above: Performed By: #### L 500.4050, L506.1000, L501.9520 #### [facility] [address] [place], [address] CA,Total 8.9 mg/dL Normal 8.5-10.1 [facility] Comment on above: Performed By: #### L 500.4050, L506.1000, L501.9520 #### [facility] [address] [place], [address] Chloride [Moles/Vol] 106 mmol/L Normal 98-107 [facility] Comment on above: Performed By: #### L 500.4050, L506.1000, L501.9520 #### [facility] [address] [place], [address] CO2 [Moles/Vol] 27.0 mmol/L Normal 21.0-32.0 [facility] Comment on above: Performed By: #### L 500.4050, L506.1000, L501.9520 #### [facility] [address] [place], [address] Creatinine [Mass/Vol] 0.48 mg/dL Low 0.55-1.02 [facility] Comment on above: Result Comment: The validity of the calculated GFR GFRAA in patients over 70 years has not been determined. Clinical correlation is essential. Performed By: #### L 500.4050, L506.1000, L501.9520 #### [facility] [address] [place], [address] EST GFR - AA 193 mL/min Normal >60 [facility] Comment on above: Result Comment: Afri can [place] GFR Calc Performed By: #### L 500.4050, L506.1000, L501.9520 #### [facility] [address] [place], [address] GAP 6 Normal 5-15 [facility] Comment on above: Performed By: #### L 500.4050, L506.1000, L501.9520 #### [facility] [address] [place], [address] GFR/1.73 sq M.predicted among non-blacks MDRD (S/P/Bld) [Vol rate/Area] 159 mL/min/{1.73_m2} Normal >60 [facility] Comment on above: Result Comment: Non- GFR Calc Performed By: #### L 500.4050, L506.1000, L501.9520 #### [facility] [address] [place], [address] Globulin (S) [Mass/Vol] 3.4 g/dL Normal 2.2-4.2 [facility] Comment on above: Performed By: #### L 500.4050, L506.1000, L501.9520 #### [facility] [address] [place], [address] Glucose [Mass/Vol] 75 mg/dL Normal 74-106 [facility] Comment on above: Performed By: #### L 500.4050, L506.1000, L501.9520 #### [facility] [address] [place], [address] Potassium [Moles/Vol] 3.7 mmol/L Normal 3.5-5.1 [facility] Comment on above: Performed By: #### L 500.4050, L506.1000, [id number] #### [facility] [address] [place], [address] Sodium [Moles/Vol] 139 mmol/L Normal 136-145 [facility] Comment on above: Performed By: #### L 500.4050, L506.1000, [id number] #### [facility] [address] [place], [address] T PROT 7.2 g/dL Normal 6.4-8.2 [facility] Comment on above: Performed By: #### L [id number], L506.1000, [id number] #### [facility] [address] [place], [address] Urea nitrogen [Mass/Vol] 7 mg/dL Normal 7-18 [facility] Comment on above: Performed By: #### L [id number], L506.1000, [id number] #### [facility] [address] [place], [address] Thyroid Stim Hormone (TSH)on 01-05-2024 TSH 2.620 uIU/mL Normal 0.358-3.740 [facility] Comment on above: Performed By: #### L [id number], L506.1000, [id number] #### [facility] [address] [place], [address] Vitamin D,25 Hydroxyon 01-04 Vitamin D 25-OH 69.4 ng/mL Normal [facility] Comment on above: Result Comment: Poly min D 25(OH) Status Range Deficiency <20 ng/mL (50nmol/L) Insufficiency 20 - 30 ng/mL (50 - 75 nmol/L) Sufficiency 30 - 100 ng/mL (75 - 250 nmol/L) Toxicity >100 ng/mL (>250 nmol/L) Performed By: #### L [id number], L506.1000, [id number] #### [facility] [address] [place], [address] Basophil percentageOrdered B y: Adan Bear on 11-12-2022 Bilirubin [Mass/Vol] 0.60 mg/dL 0.20-1.00 [facility] Comment on above: For patients on eltr ombopag therapy, use of Dimension [place] TBIL is not recommended. Chloride [Moles/Vol] 107 mmol/L 98-107 [facility] Glucose [Mass/Vol] 104 mg/dL 74-106 [facility] Comment on above: Fasting Glucose resu lt from 100 to 125 mg/dL suggests IMPAIRED HOMEOSTASIS per A.D.A. criteria. Potassium [Moles/Vol] 3.6 mmol/L 3.5-5.1 [facility] Protein [Mass/Vol] 7.1 g/dL 6.4-8.2 [facility] Sodium [Moles/Vol] 140 mmol/L 136-145 [facility] Laboratory - Chemistry and C hemistry - challengeOrdered By: Adan Bear on 11-12-2022 ALP [Catalytic activity/Vol] 58 U/L 45-117 [facility] ALT [Catalytic activity/Vol] 19 U/L 13-56 [facility] CO2 [Moles/Vol] 28.0 mmol/L 21.0-32.0 [facility] Globulin (S) [Mass/Vol] 3.2 g/dL 2.2-4.2 [facility] Urea nitrogen/Creatinine [Mass ratio] 16.3 mg/mg 10-20 [facility] No Panel InformationOrdered By: Adan Bear on 11-12-2022 Estimated GFR (MDRD) Amer 130 mL/min >60 [facility] Comment on above: GFR Calc Estimated GFR (MDRD) Non-Af Amer 107 mL/min >60 [facility] Comment on above: Non- GFR Calc Thyroid Stimulating Hormone (TSH) 3.06 uIU/mL 0.358-3.74 [facility] Serum or plasma albumin madelin urement (mass/volume)Ordered By: [facility] 11-12-2022 Albumin [Mass/Vol] 3.9 g/dL 3.2-5.0 [facility] Serum or plasma albumin/glob ulin mass ratioOrdered By: [facility] on 11-12-2022 Albumin/Globulin [Mass ratio] 1.2 {ratio} 0.9-2.4 [facility] Serum or plasma calcium madelin urement (mass/volume)Ordered By: [facility] 11-12-2022 Calcium [Mass/Vol] 9.1 mg/dL 8.5-10.1 [facility] Serum or plasma creatinine m easurement (mass/volume)Ordered By: [facility] on 11-12-2022 Creatinine [Mass/Vol] 0.68 mg/dL 0.55-1.02 [facility] Comment on above: The validity of the calculated GFR & GFRAA in patients over 70 years has not been determined. Clinical correlation is essential. Serum or plasma urea nitroge n measurement (mass/volume)Ordered By: [facility] on 11-12-2022 Urea nitrogen [Mass/Vol] 11 mg/dL 7-18 [facility] Thin prep Papanicolaou smear with manual screeningOrdered By: [facility] on 11-12-2022 Thin prep Papanicolaou smear with manual screening 13 U/L 15-37 [facility] Thin prep Papanicolaou smear with manual screening 5 5-15 [facility] Basophil percentageOrdered B y: Estelle Carbone on 07-19-2022 Bilirubin [Mass/Vol] 0.50 mg/dL 0.20-1.00 [facility] Comment on above: For patients on eltr ombopag therapy, use of Dimension [place] TBIL is not recommended. Chloride [Moles/Vol] 104 mmol/L 98-107 [facility] Glucose [Mass/Vol] 92 mg/dL 74-106 [facility] Potassium [Moles/Vol] 3.6 mmol/L 3.5-5.1 [facility] Protein [Mass/Vol] 7.2 g/dL 6.4-8.2 [facility] Sodium [Moles/Vol] 139 mmol/L 136-145 [facility] Laboratory - Chemistry and C hemistry - challengeOrdered By: Estelle Carbone on 07-19-2022 ALP [Catalytic activity/Vol] 67 U/L 45-117 [facility] ALT [Catalytic activity/Vol] 20 U/L 13-56 [facility] CO2 [Moles/Vol] 27.0 mmol/L 21.0-32.0 [facility] Free T4 [Mass/Vol] 1.20 ng/dL 0.76-1.46 [facility] Globulin (S) [Mass/Vol] 3.3 g/dL 2.2-4.2 [facility] Urea nitrogen/Creatinine [Mass ratio] 22.5 mg/mg 10-20 [facility] No Panel InformationOrdered By: Estelle Carbone on 07-19-2022 Estimated GFR (MDRD) Amer 171 mL/min >60 [facility] Comment on above: GFR Calc Estimated GFR (MDRD) Non-Af Amer 141 mL/min >60 [facility] Comment on above: Non- GFR Calc Free Triiodothyronine (T3) pg/dL 2.3 pg/mL 2.18-3.98 [facility] Thyroid Stimulating Hormone (TSH) 2.62 uIU/mL 0.358-3.74 [facility] Vitamin D 25-Hydroxy 63.7 ng/mL [facility] Comment on above: Vitamin D 25(OH) Sta tus Range Deficiency <20 ng/mL (50nmol/L) Insufficiency 20 - 30 ng/mL (50 - 75 nmol/L) Sufficiency 30 - 100 ng/mL (75 - 250 nmol/L) Toxicity >100 ng/mL (>250 nmol/L) Serum or plasma albumin madelin urement (mass/volume)Ordered By: Estelle Carbone on 07-19-2022 Albumin [Mass/Vol] 3.9 g/dL 3.2-5.0 [facility] Serum or plasma albumin/glob ulin mass ratioOrdered By: Estelle Carbone on 07-19-2022 Albumin/Globulin [Mass ratio] 1.2 {ratio} 0.9-2.4 [facility] Serum or plasma calcium madelin urement (mass/volume)Ordered By: Estelle Carbone on 07-19-2022 Calcium [Mass/Vol] 9.1 mg/dL 8.5-10.1 [facility] Serum or plasma creatinine m easurement (mass/volume)Ordered By: Estelle Carbone on 07-19-2022 Creatinine [Mass/Vol] 0.53 mg/dL 0.55-1.02 [facility] Comment on above: The validity of the calculated GFR & GFRAA in patients over 70 years has not been determined. Clinical correlation is essential. Serum or plasma urea nitroge n measurement (mass/volume)Ordered By: Estelle Carbone on 07-19-2022 Urea nitrogen [Mass/Vol] 12 mg/dL 7-18 [facility] Thin prep Papanicolaou smear with manual screeningOrdered By: Estelle Carbone on 07-19-2022 Thin prep Papanicolaou smear with manual screening 11 U/L 15-37 [facility] Thin prep Papanicolaou smear with manual screening 8 5-15 [facility] Laboratory - Chemistry and C hemistry - challengeOrdered By: Estelle Carbone on 06-03-2022 Free T4 [Mass/Vol] 1.01 ng/dL 0.76-1.46 [facility] No Panel InformationOrdered By: Estelle Carbone on 06-03-2022 Free Triiodothyronine (T3) pg/dL 2.2 pg/mL 2.18-3.98 [facility] Thyroid Stimulating Hormone (TSH) 7.11 uIU/mL 0.358-3.74 [facility] - Chemistry and C hemistry - challengeOrdered By: Estelle Carbone on 05-11-2022 Free T4 [Mass/Vol] 0.93 ng/dL 0.76-1.46 [facility] No Panel InformationOrdered By: Estelle Carbone on 05-11-2022 Free Triiodothyronine (T3) pg/dL 2.2 pg/mL 2.18-3.98 [facility] - Chemistry and C hemistry - challengeOrdered By: Dr. Bear on 04-20-2022 Free T4 [Mass/Vol] 0.73 ng/dL 0.76-1.46 [facility] No Panel InformationOrdered By: Dr. Bear on 04-20-2022 Free Triiodothyronine (T3) pg/dL 2.0 pg/mL 2.18-3.98 [facility] Thyroid Stimulating Hormone (TSH) 28.60 uIU/mL 0.358-3.74 [facility] - Chemistry and C hemistry - challengeon 03-01-2022 Free T4 [Mass/Vol] 0.65 ng/dL 0.76-1.46 [facility] Work Phone: [phone] No Panel Informationon 03-01 Free Triiodothyronine (T3) pg/dL 1.7 pg/mL 2.18-3.98 [facility] Work Phone: [phone] Thyroid Stimulating Hormone (TSH) 5.28 uIU/mL 0.358-3.74 [facility] Work Phone: Laboratory - Chemistry and C hemistry - challengeon 02-08-2022 Free T4 [Mass/Vol] 1.35 ng/dL 0.76-1.46 [facility] Work Phone: No Panel Informationon 02-08 Free Triiodothyronine (T3) pg/dL 3.5 pg/mL 2.18-3.98 [facility] Work Phone: Basophil percentageon 2021 Bilirubin [Mass/Vol] 0.70 mg/dL 0.20-1.00 [facility] Work Phone: Comment on above: For patients on eltr ombopag therapy, use of Dimension [place] TBIL is not recommended. Chloride [Moles/Vol] 104 mmol/L 98-107 [facility] Work Phone: Glucose [Mass/Vol] 99 mg/dL 74-106 [facility] Work Phone: Potassium [Moles/Vol] 3.9 mmol/L 3.5-5.1 [facility] Work Phone: Protein [Mass/Vol] 6.9 g/dL 6.4-8.2 [facility] Work Phone: Sodium [Moles/Vol] 141 mmol/L 136-145 [facility] Work Phone: Laboratory - Chemistry and C hemistry - challengeon 01-19-2022 ALP [Catalytic activity/Vol] 67 U/L 45-117 [facility] Work Phone: ALT [Catalytic activity/Vol] 40 U/L 13-56 [facility] Work Phone: [phone] CO2 [Moles/Vol] 28.0 mmol/L 21.0-32.0 [facility] Work Phone: Free T4 [Mass/Vol] 4.67 ng/dL 0.76-1.46 [facility] Work Phone: [phone] Globulin (S) [Mass/Vol] 3.2 g/dL 2.2-4.2 [facility] Work Phone: Magnesium [Mass/Vol] 1.9 mg/dL 1.6-2.6 [facility] Work Phone: Urea nitrogen/Creatinine [Mass ratio] 28.9 mg/mg 10-20 [facility] Work Phone: No Panel Informationon 01-19 Estimated GFR (MDRD) Amer 253 mL/min >60 [facility] Work Phone: Comment on above: GFR Calc Estimated GFR (MDRD) Non-Af Amer 209 mL/min >60 [facility] Work Phone: Comment on above: Non- GFR Calc Thyroid Stimulating Hormone (TSH) < 0.01 uIU/mL 0.358-3.74 [facility] Work Phone: Serum or plasma albumin madelin urement (mass/volume)on 01-19-2022 Albumin [Mass/Vol] 3.7 g/dL 3.2-5.0 [facility] Work Phone: Serum or plasma albumin/glob ulin mass ratioon 01-19-2022 Albumin/Globulin [Mass ratio] 1.2 {ratio} 0.9-2.4 [facility] Work Phone: Serum or plasma calcium madelin urement (mass/volume)on 01-19-2022 Calcium [Mass/Vol] 9.2 mg/dL 8.5-10.1 [facility] Work Phone: Serum or plasma creatinine m easurement (mass/volume)on 01-19-2022 Creatinine [Mass/Vol] 0.38 mg/dL 0.55-1.02 [facility] Work Phone: Comment on above: The validity of the calculated GFR & GFRAA in patients over 70 years has not been determined. Clinical correlation is essential. Serum or plasma urea nitroge n measurement (mass/volume)on 01-19-2022 Urea nitrogen [Mass/Vol] 11 mg/dL 7-18 [facility] Work Phone: Thin prep Papanicolaou smear with manual screeningon 01-19-2022 Thin prep Papanicolaou smear with manual screening 16 U/L 15-37 [facility] Work Phone: Thin prep Papanicolaou smear with manual screening 9 5-15 [facility] Work Phone: [phone] Absolute lymphocyte counton 12-03-2021 Lymphocytes Auto (Unsp spec) [#/Vol] 1.78 10*3/uL 0.83-4.51 [facility] Work Phone: [phone] Basophil percentageon 2021 Basophils/100 WBC (Bld) 0.2 % 0-1 [facility] Work Phone: Eosinophils/100 WBC (Bld) 1.7 % 0-5 [facility] Work Phone: [phone] Neutrophils (Bld) [#/Vol] 10.0 10*3/uL 2.0-7.7 [facility] Work Phone: Neutrophils/100 WBC (Bld) 78.5 % 47-70 [facility] Work Phone: [phone] WBC (Bld) [#/Vol] 12.7 10*3/uL 4.4-11.0 [facility] Work Phone: Blood erythrocytes count (nu mber/volume)on 12-03-2021 RBC (Bld) [#/Vol] 4.26 10*6/uL 4.2-5.4 [facility] Work Phone: [phone] Blood hemoglobin measurement (mass/volume)on 12-03-2021 Hemoglobin (Bld) [Mass/Vol] 14.1 g/dL 12.0-15.0 [facility] Work Phone: [phone] Blood lymphocytes/100 leukoc yteson 12-03-2021 Lymphocytes/100 WBC (Bld) 14.0 % 19-41 [facility] Work Phone: [phone] Blood monocytes/100 leukocyt eson 12-03-2021 Monocytes/100 WBC (Bld) 5.0 % 0-10 [facility] Work Phone: Blood platelet mean volumeon 12-03-2021 Platelet mean volume (Bld) [Entitic vol] 10.3 fL 6.2-12.0 [facility] Work Phone: Determination of erythrocyte mean corpuscular volume (MCV)on 12-03-2021 MCV (RBC) [Entitic vol] 93.7 fL 81-99 [facility] Work Phone: [phone] Hematocrit Auto (Bld) [Volum e fraction]on 12-03-2021 Hematocrit (Bld) [Volume fraction] 39.9 % 37-47 [facility] Work Phone: Laboratory - Hematology and Cell countson 12-03-2021 Erythrocyte distribution width (RBC) [Entitic vol] 45.9 fL 35.1-43.9 [facility] Work Phone: [phone] Erythrocyte distribution width (RBC) [Ratio] 13.8 % 11.6-14.6 [facility] Work Phone: [phone] Immature granulocytes/100 WBC (Bld) 0.600 % 0.0-0.9 [facility] Work Phone: Comment on above: IG% - Immature Granu locytes (promyelocytes, myelocytes and metamyelocytes) > 1% indicates that a LEFT SHIFT is Present. MCH (RBC) [Entitic mass] 33.1 pg 27.0-32.0 [facility] Work Phone: Nucleated RBC/100 WBC (Bld) [Ratio] 0 % 0-5 [facility] Work Phone: [phone] MCHC Auto (RBC) [Mass/Vol]on 12-03-2021 MCHC (RBC) [Mass/Vol] 35.3 g/dL 32-36 [facility] Work Phone: No Panel Informationon 12-03 Vaginal Amniotic Fluid Detection Positive Negative [facility] Work Phone: Comment on above: Amniotic fluid prese nt indicates rupture of Membranes. RESULTS CALLED TO CHRISTOPHER BARROS 12/03/21 1036 Valarie Gandhi.REPORT READ BACK BY SAME . Platelets bldon 12-03-2021 Platelets (Bld) [#/Vol] 231 10*3/uL 150-450 [facility] Work Phone: Laboratory - Chemistry and C hemistry - challengeon 11-26-2021 Glucose Ql (U) Negative [facility] Work Phone: Laboratory - Urinalysison Protein Ql (U) Negative [facility] Work Phone: Basophil percentageon 2021 Glucose [Mass/Vol] 81 mg/dL 74-106 [facility] Work Phone: Laboratory - Chemistry and C hemistry - challengeon 11-10-2021 Glucose Ql (U) Negative [facility] Work Phone: Laboratory - Urinalysison Protein Ql (U) Negative [facility] Work Phone: Basophil percentageon 2021 Bilirubin [Mass/Vol] 0.60 mg/dL 0.20-1.00 [facility] Work Phone: Comment on above: For patients on eltr ombopag therapy, use of Dimension [place] TBIL is not recommended. Chloride [Moles/Vol] 105 mmol/L 98-107 [facility] Work Phone: Glucose [Mass/Vol] 158 mg/dL 74-106 [facility] Work Phone: Comment on above: Fasting Glucose resu lt greater than or equal to 126 mg/dL suggests DIABETES MELLITUS per A.D.A. criteria. Potassium [Moles/Vol] 3.3 mmol/L 3.5-5.1 [facility] Work Phone: Protein [Mass/Vol] 6.3 g/dL 6.4-8.2 [facility] Work Phone: Sodium [Moles/Vol] 138 mmol/L 136-145 [facility] Work Phone: [phone] Laboratory - Chemistry and C hemistry - challengeon 10-28-2021 ALP [Catalytic activity/Vol] 147 U/L 45-117 [facility] Work Phone: ALT [Catalytic activity/Vol] 24 U/L 13-56 [facility] Work Phone: CO2 [Moles/Vol] 24.0 mmol/L 21.0-32.0 [facility] Work Phone: Globulin (S) [Mass/Vol] 3.4 g/dL 2.2-4.2 [facility] Work Phone: Urea nitrogen/Creatinine [Mass ratio] 9.2 mg/mg 10-20 [facility] Work Phone: Glucose Ql (U) Negative [facility] Work Phone: Laboratory - Urinalysison Protein Ql (U) Negative [facility] Work Phone: No Panel Informationon 10-28 Estimated GFR (MDRD) Amer 168 mL/min >60 [facility] Work Phone: Comment on above: GFR Calc Estimated GFR (MDRD) Non-Af Amer 139 mL/min >60 [facility] Work Phone: Comment on above: Non- GFR Calc Thyroid Stimulating Hormone (TSH) 1.40 uIU/mL 0.358-3.74 [facility] Work Phone: Vitamin D 25-Hydroxy 55.3 ng/mL [facility] Work Phone: Comment on above: Vitamin D 25(OH) Sta tus Range Deficiency <20 ng/mL (50nmol/L) Insufficiency 20 - 30 ng/mL (50 - 75 nmol/L) Sufficiency 30 - 100 ng/mL (75 - 250 nmol/L) Toxicity >100 ng/mL (>250 nmol/L) Serum or plasma albumin madelin urement (mass/volume)on 10-28-2021 Albumin [Mass/Vol] 2.9 g/dL 3.2-5.0 [facility] Work Phone: Serum or plasma albumin/glob ulin mass ratioon 10-28-2021 Albumin/Globulin [Mass ratio] 0.9 {ratio} 0.9-2.4 [facility] Work Phone: Serum or plasma calcium madelin urement (mass/volume)on 10-28-2021 Calcium [Mass/Vol] 8.8 mg/dL 8.5-10.1 [facility] Work Phone: Serum or plasma creatinine m easurement (mass/volume)on 10-28-2021 Creatinine [Mass/Vol] 0.54 mg/dL 0.55-1.02 [facility] Work Phone: Comment on above: The validity of the calculated GFR & GFRAA in patients over 70 years has not been determined. Clinical correlation is essential. Serum or plasma urea nitroge n measurement (mass/volume)on 10-28-2021 Urea nitrogen [Mass/Vol] 5 mg/dL 7-18 [facility] Work Phone: Thin prep Papanicolaou smear with manual screeningon 10-28-2021 Thin prep Papanicolaou smear with manual screening 16 U/L 15-37 [facility] Work Phone: Thin prep Papanicolaou smear with manual screening 9 5-15 [facility] Work Phone: Laboratory - Chemistry and C hemistry - challengeon 10-15-2021 Glucose Ql (U) Negative [facility] Work Phone: Laboratory - Urinalysison Protein Ql (U) Negative [facility] Work Phone: Laboratory - Chemistry and C hemistry - challengeon 10-02-2021 Glucose Ql (U) Negative [facility] Work Phone: Laboratory - Urinalysison Protein Ql (U) Negative [facility] Work Phone: Laboratory - Chemistry and C hemistry - challengeon 09-16-2021 Glucose Ql (U) Negative [facility] Work Phone: Laboratory - Urinalysison Protein Ql (U) Negative [facility] Work Phone: Laboratory - Chemistry and C hemistry - challengeon 09-02-2021 Glucose Ql (U) Negative [facility] Work Phone: Laboratory - Urinalysison Protein Ql (U) Negative [facility] Work Phone: Quantitative serum or plasma 3 hour gestational glucose tolerance panelon 08-19-2021 Glucose tolerance 3 hours gestational panel See comment [facility] Work Phone: Comment on above: FASTING 90 Col: 11/04 [id number] TOLERANCE TEST FOR Reference Interval GESTATIONAL DIABETES Fasting <105 mg/dL 1 hour <190 mg/dl 2 hour <165 mg/dl 3 hour <145 mg/dl 1 HR GLU 160 Col: 08/19/21 1052 Absolute lymphocyte counton 08-17-2021 Lymphocytes Auto (Unsp spec) [#/Vol] 1.56 10*3/uL 0.83-4.51 [facility] Work Phone: Basophil percentageon 2021 Basophils/100 WBC (Bld) 0.3 % 0-1 [facility] Work Phone: Eosinophils/100 WBC (Bld) 2.8 % 0-5 [facility] Work Phone: Neutrophils (Bld) [#/Vol] 5.3 10*3/uL 2.0-7.7 [facility] Work Phone: Neutrophils/100 WBC (Bld) 70.5 % 47-70 [facility] Work Phone: WBC (Bld) [#/Vol] 7.5 10*3/uL 4.4-11.0 [facility] Work Phone: Blood erythrocytes count (nu mber/volume)on 08-17-2021 RBC (Bld) [#/Vol] 4.11 10*6/uL 4.2-5.4 [facility] Work Phone: Blood hemoglobin measurement (mass/volume)on 08-17-2021 Hemoglobin (Bld) [Mass/Vol] 13.6 g/dL 12.0-15.0 [facility] Work Phone: Blood lymphocytes/100 leukoc yteson 08-17-2021 Lymphocytes/100 WBC (Bld) 20.8 % 19-41 [facility] Work Phone: Blood monocytes/100 leukocyt eson 08-17-2021 Monocytes/100 WBC (Bld) 5.2 % 0-10 [facility] Work Phone: Blood platelet mean volumeon 08-17-2021 Platelet mean volume (Bld) [Entitic vol] 9.6 fL 6.2-12.0 [facility] Work Phone: Determination of erythrocyte mean corpuscular volume (MCV)on 08-17-2021 MCV (RBC) [Entitic vol] 93.2 fL 81-99 [facility] Work Phone: Gestational diabetes screen 1-hour screen with 50g oral glucose loadon 08-17-2021 Glucose 1 Hr post 50 g glucose PO [Mass/Vol] 168 mg/dL 70-140 [facility] Work Phone: [phone] Hematocrit Auto (Bld) [Volum e fraction]on 08-17-2021 Hematocrit (Bld) [Volume fraction] 38.3 % 37-47 [facility] Work Phone: [phone] Laboratory - Hematology and Cell countson 08-17-2021 Erythrocyte distribution width (RBC) [Entitic vol] 45.1 fL 35.1-43.9 [facility] Work Phone: [phone] Erythrocyte distribution width (RBC) [Ratio] 13.3 % 11.6-14.6 [facility] Work Phone: [phone] Immature granulocytes/100 WBC (Bld) 0.400 % 0.0-0.9 [facility] Work Phone: [phone] Comment on above: IG% - Immature Granu locytes (promyelocytes, myelocytes and metamyelocytes) > 1% indicates that a LEFT SHIFT is Present. MCH (RBC) [Entitic mass] 33.1 pg 27.0-32.0 [facility] Work Phone: [phone] Nucleated RBC/100 WBC (Bld) [Ratio] 0 % 0-5 [facility] Work Phone: [phone] MCHC Auto (RBC) [Mass/Vol]on 08-17-2021 MCHC (RBC) [Mass/Vol] 35.5 g/dL 32-36 [facility] Work Phone: [phone] Panel Informationon 08-17 Thyroid Stimulating Hormone (TSH) 1.89 uIU/mL 0.358-3.74 [facility] Work Phone: [phone] Platelets bldon 08-17-2021 Platelets (Bld) [#/Vol] 254 10*3/uL 150-450 [facility] Work Phone: Laboratory - Chemistry and C hemistry - challengeon 08-03-2021 Glucose Ql (U) Negative [facility] Work Phone: [phone] Laboratory - Urinalysison Protein Ql (U) Negative [facility] Work Phone: [phone] Basophil percentageon 2021 Chloride [Moles/Vol] 105 mmol/L 98-107 [facility] Work Phone: Glucose [Mass/Vol] 87 mg/dL 74-106 [facility] Work Phone: Potassium [Moles/Vol] 3.7 mmol/L 3.5-5.1 [facility] Work Phone: Sodium [Moles/Vol] 137 mmol/L 136-145 [facility] Work Phone: Laboratory - Chemistry and C hemistry - challengeon 07-06-2021 CO2 [Moles/Vol] 25.0 mmol/L 21.0-32.0 [facility] Work Phone: Urea nitrogen/Creatinine [Mass ratio] 17.9 mg/mg 10-20 [facility] Work Phone: Glucose Ql (U) Negative [facility] Work Phone: Laboratory - Urinalysison Protein Ql (U) Negative [facility] Work Phone: No Panel Informationon 07-06 Estimated GFR (MDRD) Amer 245 mL/min >60 [facility] Work Phone: Comment on above: GFR Calc Estimated GFR (MDRD) Non-Af Amer 202 mL/min >60 [facility] Work Phone: Comment on above: Non- GFR Calc Serum or plasma calcium madelin urement (mass/volume)on 07-06-2021 Calcium [Mass/Vol] 9.0 mg/dL 8.5-10.1 [facility] Work Phone: Serum or plasma creatinine m easurement (mass/volume)on 07-06-2021 Creatinine [Mass/Vol] 0.39 mg/dL 0.55-1.02 [facility] Work Phone: Comment on above: The validity of the calculated GFR & GFRAA in patients over 70 years has not been determined. Clinical correlation is essential. Serum or plasma urea nitroge n measurement (mass/volume)on 07-06-2021 Urea nitrogen [Mass/Vol] 7 mg/dL 7-18 [facility] Work Phone: Thin prep Papanicolaou smear with manual screeningon 07-06-2021 Thin prep Papanicolaou smear with manual screening 7 5-15 [facility] Work Phone: Basophil percentageon 2021 Bilirubin [Mass/Vol] 0.30 mg/dL 0.20-1.00 [facility] Work Phone: Comment on above: For patients on eltr ombopag therapy, use of Dimension [place] TBIL is not recommended. Chloride [Moles/Vol] 106 mmol/L 98-107 [facility] Work Phone: Glucose [Mass/Vol] 92 mg/dL 74-106 [facility] Work Phone: Potassium [Moles/Vol] 3.4 mmol/L 3.5-5.1 [facility] Work Phone: Protein [Mass/Vol] 6.9 g/dL 6.4-8.2 [facility] Work Phone: Sodium [Moles/Vol] 139 mmol/L 136-145 [facility] Work Phone: Laboratory - Chemistry and C hemistry - challengeon 06-29-2021 ALP [Catalytic activity/Vol] 43 U/L 45-117 [facility] Work Phone: ALT [Catalytic activity/Vol] 21 U/L 13-56 [facility] Work Phone: CO2 [Moles/Vol] 25.0 mmol/L 21.0-32.0 [facility] Work Phone: Globulin (S) [Mass/Vol] 3.7 g/dL 2.2-4.2 [facility] Work Phone: Urea nitrogen/Creatinine [Mass ratio] 13.5 mg/mg 10-20 [facility] Work Phone: No Panel Informationon 06-29 Estimated GFR (MDRD) Amer 261 mL/min >60 [facility] Work Phone: Comment on above: GFR Calc Estimated GFR (MDRD) Non-Af Amer 216 mL/min >60 [facility] Work Phone: Comment on above: Non- GFR Calc Thyroid Stimulating Hormone (TSH) 2.05 uIU/mL 0.358-3.74 [facility] Work Phone: Vitamin D 25-Hydroxy 57.2 ng/mL [facility] Work Phone: Comment on above: Vitamin D 25(OH) Sta tus Range Deficiency <20 ng/mL (50nmol/L) Insufficiency 20 - 30 ng/mL (50 - 75 nmol/L) Sufficiency 30 - 100 ng/mL (75 - 250 nmol/L) Toxicity >100 ng/mL (>250 nmol/L) Serum or plasma albumin madelin urement (mass/volume)on 06-29-2021 Albumin [Mass/Vol] 3.2 g/dL 3.2-5.0 [facility] Work Phone: Serum or plasma albumin/glob ulin mass ratioon 06-29-2021 Albumin/Globulin [Mass ratio] 0.9 {ratio} 0.9-2.4 [facility] Work Phone: Serum or plasma calcium madelin urement (mass/volume)on 06-29-2021 Calcium [Mass/Vol] 8.6 mg/dL 8.5-10.1 [facility] Work Phone: Serum or plasma creatinine m easurement (mass/volume)on 06-29-2021 Creatinine [Mass/Vol] 0.37 mg/dL 0.55-1.02 [facility] Work Phone: Comment on above: The validity of the calculated GFR & GFRAA in patients over 70 years has not been determined. Clinical correlation is essential. Serum or plasma urea nitroge n measurement (mass/volume)on 06-29-2021 Urea nitrogen [Mass/Vol] 5 mg/dL 7-18 [facility] Work Phone: Thin prep Papanicolaou smear with manual screeningon 06-29-2021 Thin prep Papanicolaou smear with manual screening 13 U/L 15-37 [facility] Work Phone: [phone] Thin prep Papanicolaou smear with manual screening 8 5-15 [facility] Work Phone: [phone] Laboratory - Chemistry and C hemistry - challengeon 05-12-2021 Free T4 [Mass/Vol] 1.05 ng/dL 0.76-1.46 [facility] Work Phone: No Panel Informationon 05-12 Thyroid Stimulating Hormone (TSH) 1.71 uIU/mL 0.358-3.74 [facility] Work Phone: [phone] Absolute lymphocyte counton 05-11-2021 Lymphocytes Auto (Unsp spec) [#/Vol] 1.34 10*3/uL 0.83-4.51 [facility] Work Phone: Basophil percentageon 2020 Eosinophils/100 WBC (Bld) 1.5 % 0-5 [facility] Work Phone: [phone] Neutrophils (Bld) [#/Vol] 6.4 10*3/uL 2.0-7.7 [facility] Work Phone: [phone] WBC (Bld) [#/Vol] 8.4 10*3/uL 4.4-11.0 [facility] Work Phone: [phone] Blood erythrocytes count (nu mber/volume)on 05-11-2021 RBC (Bld) [#/Vol] 4.26 10*6/uL 4.2-5.4 [facility] Work Phone: Blood hemoglobin measurement (mass/volume)on 05-11-2021 Hemoglobin (Bld) [Mass/Vol] 13.7 g/dL 12.0-15.0 [facility] Work Phone: Blood lymphocytes/100 leukoc yteson 05-11-2021 Lymphocytes/100 WBC (Bld) 15.9 % 19-41 [facility] Work Phone: Blood monocytes/100 leukocyt eson 05-11-2021 Monocytes/100 WBC (Bld) 6.2 % 0-10 [facility] Work Phone: Blood platelet mean volumeon 05-11-2021 Platelet mean volume (Bld) [Entitic vol] 9.4 fL 6.2-12.0 [facility] Work Phone: Cervical or vagninal specime n microscopic examination by cytology stain (reported ason 05-11-2021 Cytology report Cyto stain Doc (Cvx/Vag) Comment [facility] Work Phone: Comment on above: The Pap smear is a s creening test designed to aid in thedetection of premalignant and malignant conditions of theuterine cervix. It is not a diagnostic procedure andshould not be used as the sole means of detecting cervicalcancer. Both false-positive and false-negative reports dooccur. Chlamydia trachomatis rRNA d etection by probe and target amplification methodon 05-11-2021 C. trachomatis rRNA ARIADNE+probe Ql (Unsp spec) Negative Negative [facility] Work Phone: Culture, urineon 05-11-2021 Bacteria identified Cx Nom (U) Positive [facility] Work Phone: [phone] Detection in cervical specim en of any of human papilloma virus (HPV) 16, 18, 31, 33,on 05-11-2021 HPV 16+18+31+33+35+39+45+51 +52+56+58+59+66+68 DNA Probe+sig amp Ql (Cvx) Negative Negative [facility] Work Phone: Comment on above: This nucleic acid am plification test detects fourteen high-risk HPV types (16,18,31,33,35,39,45,51,52,56,58,59,66,68)without differentiation.Performed at: [address] [id number] Director: Esha Romero MD, Phone: [phone] at: [address], [place], [place] [id number] Director: Esha Romero MD, Phone: [phone] Determination of erythrocyte mean corpuscular volume (MCV)on 05-11-2021 MCV (RBC) [Entitic vol] 89.0 fL 81-99 [facility] Work Phone: HIV 1 and HIV-2 antibody ass ay with HIV-1 p24 antigen detectionon 05-11-2021 HIV 1+2 Ab+HIV1 p24 Ag IA Ql Non-Reactive Nonreactive [facility] Work Phone: [phone] Hematocrit Auto (Bld) [Volum e fraction]on 05-11-2021 Hematocrit (Bld) [Volume fraction] 37.9 % 37-47 [facility] Work Phone: [phone] Laboratory - Cytologyon 04-16 Coagulating Bath Mixer Cyto stain Nom (Cvx/Vag) [ID] Comment [facility] Work Phone: [phone] Comment on above: Arias Butcher [employer] hnologist (ASCP) Laboratory - Drug toxicology on 05-11-2021 Amphetamines Ql (U) Negative [facility] Work Phone: [phone] Benzodiazepines Ql (U) Negative [facility] Work Phone: [phone] Cannabinoids Screen Ql (U) Negative [facility] Work Phone: [phone] Cocaine Ql (U) Negative [facility] Work Phone: [phone] Opiates Ql (U) Negative [facility] Work Phone: [phone] Laboratory - Hematology and Cell countson 05-11-2021 Basophils/100 WBC (Unsp spec) 0.4 % 0-1 [facility] Work Phone: [phone] Erythrocyte distribution width (RBC) [Entitic vol] 40.6 fL 35.1-43.9 [facility] Work Phone: [phone] Erythrocyte distribution width (RBC) [Ratio] 12.4 % 11.6-14.6 [facility] Work Phone: [phone] Immature granulocytes/100 WBC (Bld) 0.500 % 0.0-0.9 [facility] Work Phone: Comment on above: IG% - Immature Granu locytes (promyelocytes, myelocytes and metamyelocytes) > 1% indicates that a LEFT SHIFT is Present. MCH (RBC) [Entitic mass] 32.2 pg 27.0-32.0 [facility] Work Phone: Neutrophils/100 WBC (Bld) 75.5 % 47-70 [facility] Work Phone: [phone] Nucleated RBC/100 WBC (Bld) [Ratio] 0 % 0-5 [facility] Work Phone: Laboratory - Microbiology an d Antimicrobial susceptibilityon 05-11-2021 N. gonorrhoeae DNA ARIADNE+probe Ql (Unsp spec) Negative Negative [facility] Work Phone: Comment on above: Performed at: =[address] [id number] Director: Esha Romero MD, Phone: [phone] Laboratory - Miscellaneous t estson 05-11-2021 Service comment (Unsp spec) [Interp] Comment [facility] Work Phone: Comment on above: This liquid based Th inPrep(R) pap test was screened withthe use of an image guided system. Service comment (Unsp spec) [Interp] . [facility] Work Phone: MCHC Auto (RBC) [Mass/Vol]on 05-11-2021 MCHC (RBC) [Mass/Vol] 36.1 g/dL 32-36 [facility] Work Phone: No Panel Informationon 05-11 Pathology report final diagnosis Narrative Comment [facility] Work Phone: Comment on above: NEGATIVE FOR INTRAEP ITHELIAL LESION OR MALIGNANCY. Urine Barbiturates Screen Negative [facility] Work Phone: Urine Drug Screen Comment [facility] Work Phone: [phone] Comment on above: CONFIRMATORY TESTING FOR ALL POSITIVE URINE DRUG SCREENRESULTS WILL ONLY BE SENT OUT UPON PHYSICIAN ORDER. VISTA Urine Drug Screen methods provide only preliminaryanalytical test results. A more specific alternate chemicalmethod must be used in order to obtain a confirmedanalytical result. Gas chromatography/mass spectrometery(GC/MS) is the preferred confirmatory method. Clinicalconsideration and professional judgement should be appliedto any drug of abuse test result, particularly whenpreliminary positive results are used. URINE TCA TESTING MUST BE ORDERED SEPARATELY. USE TESTMNEMONIC: [facility] Urine Methadone Screen Negative [facility] Work Phone: Urine Methamphetamine-MDMA Screen Negative [facility] Work Phone: [phone] Hepatitis B Surface Antigen Non-Reactive Nonreactive [facility] Work Phone: [phone] Hepatitis C Antibody Non-Reactive Nonreactive [facility] Work Phone: Comment on above: Non Reactive: < 0.8 Equivocal: >/= 0.8 to < 1.0 Reactive: >/= 1.0The [facility] recommends that a reactive/equivocal HCV antibody result be followed up by the HCV Nucleic Acid Amplificationtest ([id number]) Rubella IgG Antibody Reactive Nonreactive [facility] Work Phone: Comment on above: Antibody Results Int erpretation of Immune Status Non Reactive Presumed Non-Immune Equivocal Equivocal Reactive Presumed Immune Platelets bldon 05-11-2021 Platelets (Bld) [#/Vol] 311 10*3/uL 150-450 [facility] Work Phone: [phone] Serum Treponema species anti body detectionon 05-11-2021 Treponema sp Ab Ql (S) Non-Reactive [facility] Work Phone: [phone] Urine phencyclidine (PCP) de tectionon 05-11-2021 Phencyclidine Ql (U) Negative [facility] Work Phone: MR LUMBAR SP WO CONTRASTon 0 10-29-2020 MR LUMBAR SP WO CONTRAST [id number] [place], [place] [address] Patient: PAM CASTRO Phone#: : 1990 Age: 30 Gender: F Pt. Type: Out Account: [id number] Location: Ordering: ROLY GALLARDO Exam Date: 10/29/2020/13:03 Family Phys: Charge Code: [id number] Physician: Holmes Order #: [id number] DLP Dose#: PROCEDURE: MRI LUMBAR SPINE WITHOUT CONTRAST COMPARISON: None. INDICATIONS: Lumbar radiculopathy. TECHNIQUE: A variety of imaging planes and parameters were utilized for visualization of suspected pathology. FINDINGS: PARASPINAL AREA: Normal with no visible mass. BONES: No fracture, pars defect, or osseous lesion. CORD/CAUDA EQUINA: Normal caliber, contour, and signal intensity. LUMBAR DISC LEVELS: L1-L2: No significant disc/facet abnormality, spinal stenosis, or foraminal stenosis. L2-L3: No significant disc/facet abnormality, spinal stenosis, or foraminal stenosis. L3-L4: No significant disc/facet abnormality, spinal stenosis, or foraminal stenosis. L4-L5: No significant disc/facet abnormality, spinal stenosis, or foraminal stenosis. L5-S1: Broad-based disc bulging is present to the right with moderate right foraminal impingement. The spinal canal and left neural foramen are patent. There is disc degeneration. CONCLUSION: 1. Broad-based disc bulge to the right at the L5-S1 level. There is moderate right foraminal narrowing. Dictated by: Enriqueta Savage MD on 10/29/2020 at 14:16 Approved by: Enriqueta Savage MD on 10/29/2020 at 14:22 Normal [facility] Laboratory - Chemistry and C hemistry - challengeon 11-24-2018 Anion gap [Moles/Vol] 12 mmol/L Normal 10 - 2 0 mmol/L [facility] [employer] Basic metabolic 2000 panel BMP with eGFR Normal [facility] [employer] Calcium [Mass/Vol] 9.1 mg/dL Normal 8.6 - 10. 2 mg/dL [facility] [employer] Chloride [Moles/Vol] 106 mmol/L Normal 98 - 10 7 mmol/L [facility], [facility].; [employer] CO2 [Moles/Vol] 25.2 mmol/L Normal 21.0 - 31.0 mmol/L [facility].; [facility]. Creatinine [Mass/Vol] 0.5 mg/dL Abnormal 0.6 - 1.2 mg/dL [facility].; [employer] [facility], [employer]. Free T4 [Mass/Vol] 2.50 ng/dL Abnormal 0.61 - 1. 12 ng/dL [facility].; [facility], [facility]. GFR/1.73 sq M.predicted among blacks MDRD (S/P/Bld) [Vol rate/Area] mL/min/{1.73_m2} Normal 60 - 999 {ML/MINUTE} [facility].; [employer] [place] [employer] [facility], [facility]. GFR/1.73 sq M.predicted MDRD (S/P/Bld) [Vol rate/Area] mL/min/{1.73_m2} Normal 60 - 999 {ML/MINUTE} [facility].; [employer]. Glucose [Mass/Vol] 162 mg/dL Abnormal 74 - 106 mg/dL [facility].; [employer], [facility]. Potassium [Moles/Vol] 3.4 mmol/L Abnormal 3.5 - 5.1 mmol/L [facility].; [place] [employer] [facility], [employer]. Sodium [Moles/Vol] 140 mmol/L Normal 136 - 145 mmol/L [facility], [facility].; [employer], [employer]. TSH Qn 0.01 m[IU]/L Abnormal 0.34 - 5.60 {uIU/ml} [facility].; [employer], [employer]. Urea nitrogen [Mass/Vol] 6 mg/dL Normal 6 - 20 mg/dL [facility].; [employer], [employer]. Laboratory - Hematology and Cell countson 11-24-2018 Basophils (Bld) [#/Vol] 0.00 {3/UL} Normal 0.00 - 0.10 {3/UL} [facility].; [employer], [employer]. Basophils/100 WBC (Bld) 0.6 % Normal 0.0 - 2.0 % [facility].; [facility], [employer]. CBC W Auto Differential panel (Bld) CBC + DIFF Normal [facility].; [employer], [facility]. Eosinophils (Bld) [#/Vol] 0.10 {3/UL} Normal 0.00 - 0.50 {3/UL} [employer], [facility].; [employer], [facility]. Eosinophils/100 WBC (Bld) 2.7 % Normal 0.0 - 7.0 % [facility].; [employer], [facility]. Erythrocyte distribution width (RBC) [Ratio] 12.0 % Normal 12.0 - 15.6 % [facility], [facility].; [facility], [facility]. Hematocrit (Bld) [Volume fraction] 35.3 % Normal 34.0 - 46.0 % [employer] [place] [employer] [facility], [facility].; [employer], [facility]. Hemoglobin (Bld) [Mass/Vol] 12.7 g/dL Normal 12.0 - 16.0 g/dL [facility], [facility].; [employer], [facility]. Lymphocytes (Bld) [#/Vol] 1.90 {3/UL} Normal 0.80 - 2.80 {3/UL} [employer], [facility].; [facility], [employer]. Lymphocytes/100 WBC (Bld) 41.0 % Normal 20.0 - 45.0 % [employer], [facility].; [facility], [employer]. MCH (RBC) [Entitic mass] 31 pg Normal 27 - 33 pg [employer], [facility].; [facility], [facility]. MCHC (RBC) [Mass/Vol] 36 {X10_3} Normal 32 - 3 6 {X10_3} [employer], [facility].; [facility] MCV (RBC) [Entitic vol] 87 fL Normal 80 - [address] [facility].; [employer], [facility]. Monocytes (Bld) [#/Vol] 0.40 {3/UL} Normal 0.20 - 1.00 {3/UL} [facility], [facility].; [facility] Monocytes/100 WBC (Bld) 7.7 % Normal 0.0 - 10.0 % [employer], [facility].; [employer]. Morphology Vishal (Bld) [Interp] N/A Normal [employer].; [employer]. Neutrophils (Bld) [#/Vol] 2.20 {3/UL} Normal 1.50 - 7.10 {3/UL} [employer], [employer]. Neutrophils/100 WBC (Bld) 48.0 % Normal 46.0 - 76.0 % [employer]. Platelet mean volume (Bld) [Entitic vol] 8.1 fL Normal 6.6 - 10.5 fL [employer], [employer]. Platelets (Bld) [#/Vol] 264 {3/UL} Normal 150 - 450 {3/UL} [employer], [employer]. RBC (Bld) [#/Vol] 4.08 {6/UL} Abnormal 4.10 - 5.3 0 {6/UL} [employer]. WBC (Bld) [#/Vol] 4.6 {3/UL} Normal 4.5 - 10.8 {3/UL} [employer], [employer]. No Panel Informationon 11-24 AGE 28 {years} Normal [employer]. MANUAL DIFF N/A Normal [employer], [employer]. No Panel Informationon 09-16 PANEL NAME THIN PREP (QU) HPV DNA-HIGH RISK Normal [employer]. Laboratory - Chemistry and C hemistry - challengeon 09-06-2016 Cholesterol [Mass/Vol] 130 mg/dL Normal 0 - 2 00.0 mg/dL [employer], [employer]. Cholesterol in HDL [Mass/Vol] 40 mg/dL Normal 30.0 - 40.0 mg/dL [employer], [employer]. Cholesterol in LDL [Mass/Vol] 76 mg/dL Normal 50.0 - 130.0 mg/dL [employer], [employer]. Cholesterol non HDL [Mass/Vol] 90 mg/dL Normal [facility]; [employer]. Cholesterol.total/Petty sterol in HDL [Mass ratio] 3.3 {ratio} Normal 0 - 5.0 [facility].; [employer] Glucose Glucometer (BldC) [Moles/Vol] 97 Normal 60 - 120 [facility].; [employer] Triglyceride [Mass/Vol] 71 mg/dL Normal 40 - 150 mg/dL [employer] [facility].; [employer]. Laboratory - Cytologyon 05-16 Microscopic observation Cyto stain Nom (Cvx) Abnormal [employer]; [employer] Laboratory - Microbiology an d Antimicrobial susceptibilityon 05-30-2015 C. trachomatis rRNA ARIADNE+probe Ql (Unsp spec) Not detected Normal [employer]; [employer]. N. gonorrhoeae rRNA ARIADNE+probe Ql (Unsp spec) Not detected Normal [employer] [facility]; [employer]. Laboratory - Cytologyon 02-14 Microscopic observation Cyto stain Nom (Cvx) Abnormal [employer].; [employer]. Laboratory - Microbiology an d Antimicrobial susceptibilityon 03-04-2014 Bacteria identified # 2 Cx Nom (Unsp spec) Normal [employer] [facility]; [employer]. Bacteria identified Cx Nom (Unsp spec) Normal [employer] [facility].; [employer]. C. trachomatis rRNA ARIADNE+probe Ql (Unsp spec) Not detected Normal [employer] [facility]; [employer]. N. gonorrhoeae rRNA ARIADNE+probe Ql (Unsp spec) Not detected Normal [employer].; [employer]. Laboratory - Specimen inform ationon 03-04-2014 Specimen source Nom (Unsp spec) GENITAL-ECC Normal [place] [employer] [facility].; [employer]. Laboratory - Cytologyon 02-13 Microscopic observation Cyto stain Nom (Cvx) SEE NOTE Abnormal [place] [employer].; [employer]. Laboratory - Microbiology an d Antimicrobial susceptibilityon 03-02-2013 C. trachomatis DNA ARIADNE+probe Ql (Unsp spec) Not detected Normal [employer].; [employer]. N. gonorrhoeae DNA ARIADNE+probe Ql (Unsp spec) Not detected Normal [employer].; [employer] Laboratory - Cytologyon 02-13 Microscopic observation Cyto stain Nom (Cvx) SEE NOTE Normal [employer].; [employer]. Laboratory - Microbiology an d Antimicrobial susceptibilityon 02-28-2012 C. trachomatis DNA ARIADNE+probe Ql (Unsp spec) Not detected Normal [employer].; [employer], b[employer]. N. gonorrhoeae DNA ARIADNE+probe Ql (Unsp spec) Not detected Normal [employer].; [employer], b[employer]. No Panel Information Group B Streptococcus Culture Group B Beta Streptococcus is not isolated. [facility] Work Phone: Vital Signs Date Time Vital Sign Value Performing Clinician Facility 09-26-2024 11:12-0400 Body height 167.64 cm Amber Koo [facility] [employer]. 09-26-2024 11:12-0400 Body mass index (BMI) [Ratio] 21.95 kg/m2 Amber Koo [facility] [employer] 09-26-2024 11:12-0400 Body surface area Derived from formula 1.7 m2 Amber Koo [facility] [employer] 09-26-2024 11:12-0400 Body weight 61.69 kg Amber Koo [facility] [employer], [employer].; [employer]. 09-26-2024 11:12-0400 Diastolic blood pressure 83 mm[Hg] Amber Koo [facility] [employer], b[employer]. Comment on above: Patient Position: Sitting; Cuff Location : Left Arm; Cuff Size: Standard 09-26-2024 11:12-0400 Heart rate 91 /min Amber Koo [facility] [employer]. Comment on above: Pattern: Regular 09-26-2024 11:12-0400 Systolic blood pressure 126 mm[Hg] Amber Koo [facility].; [employer]. Comment on above: Patient Position: Sitting; Cuff Location : Left Arm; Cuff Size: Standard 08-02-2024 10:59-0400 Body height 167.64 cm Amber Koo [facility] [employer] [facility] [employer] 08-02-2024 10:59-0400 Body mass index (BMI) [Ratio] 21.31 kg/m2 Amber Koo [facility] [employer] [facility].; [employer]. 08-02-2024 10:59-0400 Body surface area Derived from formula 1.68 m2 Amber Koo [facility] [employer] [facility], bCODE. 08-02-2024 10:59-0400 Body weight 59.88 kg Amber Koo [facility] [employer] [facility].; [employer]. 08-02-2024 10:59-0400 Diastolic blood pressure 72 mm[Hg] [facility]oo [facility] [employer]. Comment on above: Patient Position: Sitting; Cuff Location : Left Arm; Cuff Size: Standard 08-02-2024 10:59-0400 Heart rate 80 /min Amber Koo [facility] Comment on above: Pattern: Regular 08-02-2024 10:59-0400 Systolic blood pressure 107 mm[Hg] Amber Koo [facility] [employer]. Comment on above: Patient Position: Sitting; Cuff Location : Left Arm; Cuff Size: Standard 02-02-2022 13:14-0400 Body height 170.[address] Roly Gallardo Work Phone: [facility] Work Phone: 02-02-2022 13:14-0400 Body mass index (BMI) [Ratio] 21.4 kg/m2 Dr. Roly Gallardo Work Phone: [facility] Work Phone: 02-02-2022 13:14-0400 Body weight 62.[address] Roly Gallardo Work Phone: [facility] Work Phone: 02-02-2022 13:14-0400 Diastolic blood pressure 83 mm[Hg] Dr. Roly Gallardo Work Phone: [facility] Work Phone: 02-02-2022 13:14-0400 Systolic blood pressure 122 mm[Hg] Dr. Roly Gallardo Work Phone: [facility] Work Phone: 12-04-2021 15:38-0400 Body temperature 97.4 [degF] Dr. Roly Gallardo Work Phone: [facility] Work Phone: 12-04-2021 15:38-0400 Diastolic blood pressure 74 mm[Hg] Dr. Roly Gallardo Work Phone: [facility] Work Phone: 12-04-2021 15:38-0400 Heart rate 92 /min Dr. Roly Gallardo Work Phone: [facility] Work Phone: 12-04-2021 15:38-0400 Respiratory rate 16 /min Dr. Roly Gallardo Work Phone: [facility] Work Phone: 12-04-2021 15:38-0400 Systolic blood pressure 113 mm[Hg] Dr. Roly Gallardo Work Phone: [facility] Work Phone: 12-04-2021 08:04-0400 SaO2% (BldA) [Mass fraction] 97 % Dr. Roly Gallardo Work Phone: [facility] Work Phone: 12-03-2021 10:29-0400 Body height 170.[address] Roly Gallardo Work Phone: [facility] Work Phone: 12-03-2021 10:29-0400 Body mass index (BMI) [Ratio] 25.2 kg/m2 Dr. Roly Gallardo Work Phone: [facility] Work Phone: 12-03-2021 10:29-0400 Body weight 73.[address] Roly Gallardo Work Phone: [facility] Work Phone: 11-26-2021 15:57-0400 Body mass index (BMI) [Ratio] 25.8 kg/m2 Dr. Roly Gallardo Work Phone: [facility] Work Phone: 11-26-2021 15:57-0400 Body weight 74.[address] Roly Gallardo Work Phone: [facility] Work Phone: 11-26-2021 15:57-0400 Diastolic blood pressure 74 mm[Hg] Dr. Royl Gallardo Work Phone: [facility] Work Phone: 11-26-2021 15:57-0400 Systolic blood pressure 122 mm[Hg] Dr. Roly Gallardo Work Phone: [facility] Work Phone: 11-10-2021 13:09-0400 Body height 170.[address] Roly Gallardo Work Phone: [facility] Work Phone: 11-10-2021 13:09-0400 Body mass index (BMI) [Ratio] 25.4 kg/m2 Dr. Roly Gallardo Work Phone: [facility] Work Phone: 11-10-2021 13:09-0400 Body weight 73.[address] Roly Gallardo Work Phone: [facility] Work Phone: 11-10-2021 13:09-0400 Diastolic blood pressure 88 mm[Hg] Dr. Roly Gallardo Work Phone: [facility] Work Phone: 11-10-2021 13:09-0400 Systolic blood pressure 130 mm[Hg] Dr. Roly Gallardo Work Phone: [facility] Work Phone: 10-28-2021 14:41-0400 Body height 170.[address] Roly Gallardo Work Phone: [facility] Work Phone: 10-28-2021 14:41-0400 Body mass index (BMI) [Ratio] 25.2 kg/m2 Dr. Roly Gallardo Work Phone: [facility] Work Phone: 10-28-2021 14:41-0400 Body weight 73.[address] Roly Gallardo Work Phone: [facility] Work Phone: 10-28-2021 14:41-0400 Diastolic blood pressure 84 mm[Hg] Dr. Roly Gallardo Work Phone: [facility] Work Phone: 10-28-2021 14:41-0400 Systolic blood pressure 120 mm[Hg] Dr. Roly Gallardo Work Phone: [facility] Work Phone: 10-15-2021 14:04-0400 Body mass index (BMI) [Ratio] 25 kg/m2 Dr. Roly Gallardo Work Phone: [facility] Work Phone: 10-15-2021 14:04-0400 Body weight 72.[address] Roly Gallardo Work Phone: [facility] Work Phone: 10-15-2021 14:04-0400 Diastolic blood pressure 80 mm[Hg] Dr. Roly Gallardo Work Phone: [facility] Work Phone: 10-15-2021 14:04-0400 Systolic blood pressure 126 mm[Hg] Dr. Roly Gallardo Work Phone: [facility] Work Phone: 10-02-2021 13:15-0400 Body mass index (BMI) [Ratio] 24.9 kg/m2 Dr. Roly Gallardo Work Phone: [facility] Work Phone: 10-02-2021 13:15-0400 Body weight 72.[address] Roly Gallardo Work Phone: [facility] Work Phone: 10-02-2021 13:15-0400 Diastolic blood pressure 70 mm[Hg] Dr. Roly Gallardo Work Phone: [facility] Work Phone: 10-02-2021 13:15-0400 Systolic blood pressure 120 mm[Hg] Dr. Roly Gallardo Work Phone: [facility] Work Phone: 09-16-2021 10:05-0400 Body mass index (BMI) [Ratio] 24.4 kg/m2 Dr. Roly Gallardo Work Phone: [facility] Work Phone: 09-16-2021 10:05-0400 Body weight 70.[address] Roly Gallardo Work Phone: [facility] Work Phone: 09-16-2021 10:05-0400 Diastolic blood pressure 84 mm[Hg] Dr. Roly Gallardo Work Phone: [facility] Work Phone: 09-16-2021 10:05-0400 Systolic blood pressure 136 mm[Hg] Dr. Roly Gallardo Work Phone: [facility] Work Phone: 09-02-2021 14:27-0400 Body mass index (BMI) [Ratio] 24.4 kg/m2 Dr. Roly Gallardo Work Phone: [facility] Work Phone: 09-02-2021 14:27-0400 Body weight 70.[address] Roly Gallardo Work Phone: [facility] Work Phone: 09-02-2021 14:27-0400 Diastolic blood pressure 82 mm[Hg] Dr. Roly Gallardo Work Phone: [facility] Work Phone: 09-02-2021 14:27-0400 Systolic blood pressure 120 mm[Hg] Dr. Roly Gallardo Work Phone: [facility] Work Phone: 08-03-2021 14:02-0400 Body mass index (BMI) [Ratio] 23.5 kg/m2 Dr. Roly Gallardo Work Phone: [facility] Work Phone: 08-03-2021 14:02-0400 Body weight 68.[address] Roly Gallardo Work Phone: [facility] Work Phone: 08-03-2021 14:02-0400 Diastolic blood pressure 62 mm[Hg] Dr. Roly Gallardo Work Phone: [facility] Work Phone: 08-03-2021 14:02-0400 Systolic blood pressure 98 mm[Hg] Dr. Roly Gallardo Work Phone: [facility] Work Phone: 08-03-2021 14:02-0400 Body height 170.[address] Roly Gallardo Work Phone: [facility] Work Phone: 08-03-2021 14:02-0400 Body mass index (BMI) [Ratio] 23.5 kg/m2 Dr. Roly Gallardo Work Phone: [facility] Work Phone: 08-03-2021 14:02-0400 Body weight 68.[address] Roly Gallardo Work Phone: [facility] Work Phone: 08-03-2021 14:02-0400 Diastolic blood pressure 62 mm[Hg] Dr. Roly Gallardo Work Phone: [facility] Work Phone: 08-03-2021 14:02-0400 Systolic blood pressure 98 mm[Hg] Dr. Roly Gallardo Work Phone: [facility] Work Phone: 07-06-2021 13:12-0500 Body mass index (BMI) [Ratio] 22.4 kg/m2 Dr. Roly Gallardo Work Phone: [facility] Work Phone: 07-06-2021 13:12-0500 Body weight 64.[address] Roly Gallardo Work Phone: [facility] Work Phone: 07-06-2021 13:12-0500 Diastolic blood pressure 76 mm[Hg] Dr. Roly Gallardo Work Phone: [facility] Work Phone: 07-06-2021 13:12-0500 Systolic blood pressure 128 mm[Hg] Dr. Roly Gallardo Work Phone: [facility] Work Phone: 07-06-2021 12:12-0500 Body mass index (BMI) [Ratio] 22.4 kg/m2 Dr. Roly Gallardo Work Phone: [facility] Work Phone: 07-06-2021 12:12-0500 Body weight 64.[address] Roly Gallardo Work Phone: [facility] Work Phone: 07-06-2021 12:12-0500 Diastolic blood pressure 76 mm[Hg] Dr. Roly Gallardo Work Phone: [facility] Work Phone: 07-06-2021 12:12-0500 Systolic blood pressure 128 mm[Hg] Dr. Roly Gallardo Work Phone: [facility] Work Phone: 06-08-2021 13:01-0500 Body mass index (BMI) [Ratio] 22.7 kg/m2 Dr. Roly Gallardo Work Phone: [facility] Work Phone: 06-08-2021 13:01-0500 Body weight 65.[address] Roly Gallardo Work Phone: [facility] Work Phone: 06-08-2021 13:01-0500 Diastolic blood pressure 74 mm[Hg] Dr. Roly Gallardo Work Phone: [facility] Work Phone: 06-08-2021 13:01-0500 Systolic blood pressure 102 mm[Hg] Dr. Roly Gallardo Work Phone: [facility] Work Phone: 05-11-2021 12:37-0500 Body mass index (BMI) [Ratio] 22.1 kg/m2 Dr. Roly Gallardo Work Phone: [facility] Work Phone: 05-11-2021 12:37-0500 Body weight 63.[address] Roly Gallardo Work Phone: [facility] Work Phone: 05-11-2021 12:37-0500 Diastolic blood pressure 70 mm[Hg] Dr. Roly Gallardo Work Phone: [facility] Work Phone: 05-11-2021 12:37-0500 Systolic blood pressure 128 mm[Hg] Dr. Roly Gallardo Work Phone: [facility] Work Phone: 10-23-2020 14:47-0400 Body height 167.64 cm Sandra Encinas LPN [facility].; [facility], [facility]. 10-23-2020 14:47-0400 Body mass index (BMI) [Ratio] 20.66 kg/m2 Sandra Encinas LPN [facility].; [facility], [facility]. 10-23-2020 14:47-0400 Body surface area Derived from formula 1.65 m2 Sandra Encinas LPN [facility].; [employer] [facility]. 10-23-2020 14:47-0400 Body weight 58.06 kg Sandra Encinas LPN [facility].; [employer]. 10-23-2020 14:47-0400 Diastolic blood pressure 77 mm[Hg] Sandra Encinas LPN [place] [employer] [facility].; [employer]. Comment on above: Patient Position: Sitting; Cuff Location : Left Arm; Cuff Size: Standard 10-23-2020 14:47-0400 Heart rate 97 /min Sandra Encinas LPN [place] [employer] [facility].; [employer]. Comment on above: Pattern: Regular 10-23-2020 14:47-0400 Systolic blood pressure 127 mm[Hg] Sandra Encinas LPN [place] [employer] [facility].; [employer]. Comment on above: Patient Position: Sitting; Cuff Location : Left Arm; Cuff Size: Standard 01-10-2020 09:12-0400 Body height 167.64 cm Carola Jenkins RN [place] [employer] [facility].; [employer] [facility]. 01-10-2020 09:12-0400 Body mass index (BMI) [Ratio] 22.43 kg/m2 Carola Jenkins RN [place] [employer] [facility].; [employer]. 01-10-2020 09:120400 Body surface area Derived from formula 1.71 m2 Carola Jenkins RN [place] [employer] [facility].; [employer]. 01-10-2020 09:12-0400 Body temperature 98.7 [degF] Carola Jenkins RN [place] [employer] [facility].; [employer]. Comment on above: Method: Tympanic 01-10-2020 09:12-0400 Body weight 63.05 kg Carola Jenkins RN [place] [employer] [facility].; [employer]. 01-10-2020 09:12-0400 Diastolic blood pressure 74 mm[Hg] Carola Jenkins RN [facility], [facility].; [employer] [facility], bCODE. Comment on above: Patient Position: Sitting; Cuff Location : Left Arm; Cuff Size: Standard 01-10-2020 09:12-0400 Heart rate 89 /min Carola Jenkins RN [facility], [facility].; [place] [employer], [employer]. Comment on above: Pattern: Regular 01-10-2020 09:12-0400 Systolic blood pressure 108 mm[Hg] Carola Jenkins RN [facility].; [place] [employer], [employer]. Comment on above: Patient Position: Sitting; Cuff Location : Left Arm; Cuff Size: Standard 11-06-2019 09:04-0400 Body height 167.64 cm Sandra Encinas LPN [facility], [facility].; [place] [employer] [facility] 11-06-2019 09:04-0400 Body mass index (BMI) [Ratio] 24.37 kg/m2 Sandra Encinas LPN [facility], [facility].; [place] [employer] [facility], [facility]. 11-06-2019 09:04-0400 Body surface area Derived from formula 1.78 m2 Sandra Encinas LPN [facility], [facility].; [place] [employer] [facility], [facility]. 11-06-2019 09:04-0400 Body weight 68.49 kg Sandra Encinas LPN [facility], [facility].; [place] [employer] [facility] 11-06-2019 09:04-0400 Diastolic blood pressure 74 mm[Hg] Sandra Encinas LPN [facility], [facility].; [employer], [employer]. Comment on above: Patient Position: Sitting; Cuff Location : Left Arm; Cuff Size: Standard 11-06-2019 09:04-0400 Heart rate 76 /min Sandra Encinas LPN [facility].; [employer], [employer]. Comment on above: Pattern: Regular 11-06-2019 09:04-0400 Systolic blood pressure 111 mm[Hg] Sandra Encinas LPN [facility], [facility].; [employer], [employer]. Comment on above: Patient Position: Sitting; Cuff Location : Left Arm; Cuff Size: Standard 05-14-2019 09:18-0500 Body height 167.64 cm Sandra Encinas LPN [facility], [facility].; [employer]. 05-14-2019 09:18-0500 Body mass index (BMI) [Ratio] 25.82 kg/m2 Sandra Encinas LPN [facility], Inc.; [facility] 05-14-2019 09:18-0500 Body surface area Derived from formula 1.82 m2 Sandra Encinas LPN [facility], Inc.; [employer], [employer]. 05-14-2019 09:18-0500 Body temperature 98.5 [degF] Sandra Encinas LPN [facility], bCODE.; [employer]. Comment on above: Method: Tympanic 05-14-2019 09:18-0500 Body weight 72.58 kg Sandra Encinas LPN [facility], [facility].; [employer], [employer]. 05-14-2019 09:18-0500 Diastolic blood pressure 71 mm[Hg] Sandra Encinas LPN [facility], Inc.; [employer]. Comment on above: Patient Position: Sitting; Cuff Location : Left Arm; Cuff Size: Standard 05-14-2019 09:18-0500 Heart rate 78 /min Sandra Encinas LPN [facility], Inc.; [employer]. Comment on above: Pattern: Regular 05-14-2019 09:18-0500 Inhaled oxygen concentration 21 % Sandra Encinas LPN [facility], Inc.; [employer]. Comment on above: Room air 05-14-2019 09:18-0500 SaO2% (BldA) [Mass fraction] 98 % Sandra Encinas LPN [facility], Inc.; [employer]. 05-14-2019 09:18-0500 Systolic blood pressure 112 mm[Hg] Sandra Encinas LPN [facility], [employer].; [employer]. Comment on above: Patient Position: Sitting; Cuff Location : Left Arm; Cuff Size: Standard 12-27-2018 13:46-0400 Body height 167.64 cm Bo Lemus LPN [facility], Inc.; [employer]. 12-27-2018 13:46-0400 Body mass index (BMI) [Ratio] 24.86 kg/m2 Bo Lemus LPN [facility] [employer] 12-27-2018 13:46-0400 Body surface area Derived from formula 1.79 m2 Bo Lemus [employer] [facility] [employer] 12-27-2018 13:46-0400 Body weight 69.85 kg Bo Lemus [employer] [facility] [employer] 12-27-2018 13:46-0400 Diastolic blood pressure 68 mm[Hg] Jonnathane Alejandro Lemus [employer] [facility] [employer] Comment on above: Patient Position: Sitting; Cuff Location : Left Arm; Cuff Size: Standard 12-27-2018 13:46-0400 Heart rate 69 /min Bo Lemus [employer] [facility] [employer] Comment on above: Pattern: Regular 12-27-2018 13:46-0400 Systolic blood pressure 114 mm[Hg] Bo Lemus [employer] [facility] [employer] Comment on above: Patient Position: Sitting; Cuff Location : Left Arm; Cuff Size: Standard 11-27-2018 11:01-0400 Body height 167.64 cm Cesilia Qureshi [employer] [facility] [employer] 11-27-2018 11:01-0400 Body mass index (BMI) [Ratio] 26.47 kg/m2 Cesilia Qureshi [employer] [facility] [employer] 11-27-2018 11:01-0400 Body surface area Derived from formula 1.84 m2 Cesilia Qureshi [employer] [facility] [employer], b[employer]. 11-27-2018 11:01-0400 Body weight 74.39 kg Cesilia Qureshi [employer] [facility] [employer] 11-27-2018 11:01-0400 Diastolic blood pressure 63 mm[Hg] Cesilia Qureshi [employer] [facility] [employer], [employer]. Comment on above: Patient Position: Sitting; Cuff Location : Left Arm; Cuff Size: Large 11-27-2018 11:01-0400 Heart rate 81 /min Cesilia Qureshi [facility] [employer]. Comment on above: Pattern: Regular 11-27-2018 11:01-0400 Systolic blood pressure 117 mm[Hg] Cesilia Qureshi [employer] [facility] [employer] Comment on above: Patient Position: Sitting; Cuff Location : Left Arm; Cuff Size: Large 11-24-2018 11:40-0400 Body height 167.64 cm Joana RobertsHorsham Clinic[facility], Inc.; [employer]. 11-24-2018 11:40-0400 Body mass index (BMI) [Ratio] 26.47 kg/m2 Joana Funk Rein[facility] Clinic[facility], Inc.; [employer] 11-24-2018 11:40-0400 Body surface area Derived from formula 1.84 m2 Joana Funk [facility] Clinic[facility], Inc.; [employer] 11-24-2018 11:40-0400 Body weight 74.39 kg Joana Funk Reinier LPN [employer]. 11-24-2018 11:40-0400 Diastolic blood pressure 77 mm[Hg] [place] [facility] [employer]. Comment on above: Patient Position: Sitting; Cuff Location : Left Arm; Cuff Size: Standard 11-24-2018 11:40-0400 Heart rate 81 /min Joana [place] [facility].; [employer]. Comment on above: Pattern: Regular 11-24-2018 11:40-0400 Systolic blood pressure 112 mm[Hg] Joana Hills [facility] [employer].; [employer]. Comment on above: Patient Position: Sitting; Cuff Location : Left Arm; Cuff Size: Standard 11-10-2017 16:10-0400 Body height 167.64 cm Khadar Baez PA-C Work Phone: [employer].; [employer] 11-10-2017 16:10-0400 Body mass index (BMI) [Ratio] 25.02 kg/m2 Luke Sasha PA-C Work Phone: [employer] 11-10-2017 16:10-0400 Body surface area Derived from formula 1.79 m2 Luke Sasha PA-C Work Phone: [employer]. 11-10-2017 16:10-0400 Body temperature 99.3 [degF] Luke Sasha PA-C Work Phone: [employer]. 11-10-2017 16:10-0400 Body weight 70.31 kg Luke Sasha PA-C Work Phone: [employer]. 11-10-2017 16:10-0400 Diastolic blood pressure 95 mm[Hg] Luke Sasha PA-C Work Phone: [employer]. Comment on above: Patient Position: Sitting; Cuff Location : Left Arm; Cuff Size: Standard 11-10-2017 16:10-0400 Heart rate 76 /min Luke Sasha PA-C Work Phone: [employer]. Comment on above: Pattern: Regular 11-10-2017 16:10-0400 Systolic blood pressure 124 mm[Hg] Luke Sasha PA-C Work Phone: [employer].; [employer] Comment on above: Patient Position: Sitting; Cuff Location : Left Arm; Cuff Size: Standard 09-16-2016 13:10-0400 Body height 167.64 cm Lucie Samaniego LPN [employer] 09-16-2016 13:10-0400 Body mass index (BMI) [Ratio] 25.5 kg/m2 Lucie Simmonsugh [employer] [place] [employer] [facility] 09-16-2016 13:100400 Body surface area Derived from formula 1.81 m2 Lucie Josh Morelosbaugh BAND [employer] [facility], [facility] [employer] 09-16-2016 13:100400 Body weight 71.67 kg Lucie Samaniego [employer] [place] [employer] [employer] 09-16-2016 13:10-0400 Diastolic blood pressure 77 mm[Hg] Lucie Josh Morelosbaugh [employer] [place] [employer] [employer] Comment on above: Patient Position: Sitting; Cuff Location : Left Arm; Cuff Size: Standard 09-16-2016 13:100400 Heart rate 69 /min Lucie Josh Morelosbairving BAND SHOVER [facility], [facility] [employer] Comment on above: Pattern: Regular 09-16-2016 13:100400 Systolic blood pressure 130 mm[Hg] Lucie Josh Moerlosbaugh [employer] [place] [employer] [employer] Comment on above: Patient Position: Sitting; Cuff Location : Left Arm; Cuff Size: Standard 12-22-2015 10:270400 Body height 167.64 cm Cesilia Qureshi [facility], [facility].; [employer] 12-22-2015 10:27-0400 Body mass index (BMI) [Ratio] 26.15 kg/m2 Cesilia Qureshi [facility], [facility] [employer] 12-22-2015 10:270400 Body surface area Derived from formula 1.83 m2 Cesilia Qureshi [facility], [employer]. 12-22-2015 10:270400 Body temperature 98.1 [degF] Cesilia Qureshi [facility] [employer], [employer]. Comment on above: Method: Tympanic 12-22-2015 10:270400 Body weight 73.48 kg Cesilia Qureshi [facility] [employer] 12-15-2015 09:11-0400 Body height 167.64 cm Cesilia Qureshi LPN [facility], [facility].; [facility], [employer]. 12-15-2015 09:11-0400 Body mass index (BMI) [Ratio] 26.15 kg/m2 Cesilia Qureshi B[employer], [facility].; [facility], [employer]. 12-15-2015 09:11-0400 Body surface area Derived from formula 1.83 m2 Cesilia Qureshi [facility], [facility].; [facility], [employer]. 12-15-2015 09:11-0400 Body temperature 98.6 [degF] Cesilia Qureshi [facility], [facility].; [employer]. Comment on above: Method: Tympanic 12-15-2015 09:11-0400 Body weight 73.48 kg Cesilia Qureshi B[facility], [facility].; [employer] 12-15-2015 09:11-0400 Diastolic blood pressure 76 mm[Hg] Cesilia Qureshi [facility], [employer].; [employer]. Comment on above: Patient Position: Sitting; Cuff Location : Left Arm; Cuff Size: Large 12-15-2015 09:11-0400 Heart rate 80 /min Cesilia Qureshi LPN [facility], [employer].; [employer]. Comment on above: Pattern: Regular 12-15-2015 09:11-0400 Inhaled oxygen concentration 21 % ElenaLenora Qureshi [facility], [facility].; [employer]. Comment on above: Room air 12-15-2015 09:11-0400 SaO2% (BldA) [Mass fraction] 97 % ElenaLenora Qureshi [facility], [employer].; [employer]. 12-15-2015 09:11-0400 Systolic blood pressure 118 mm[Hg] Cesilia Qureshi LPN [facility], [employer].; [employer]. Comment on above: Patient Position: Sitting; Cuff Location : Left Arm; Cuff Size: Large 05-30-2015 14:18-0500 Body height 167.64 cm Jojo Ryann Hobbs LPN [facility] [employer] 05-30-2015 14:18-0500 Body mass index (BMI) [Ratio] 30.67 kg/m2 Jojo Ryann Hobbs LPN [facility], [facility] [employer] 05-30-2015 14:18-0500 Body surface area Derived from formula 1.96 m2 Jojo Hobbs LPN [place] [employer] 05-30-2015 14:18-0500 Body weight 86.18 kg Jojo Ryann Hobbs LPN [facility] [employer] 05-30-2015 14:18-0500 Diastolic blood pressure 76 mm[Hg] Jojomedina Hobbs LPN [facility] [employer] Comment on above: Patient Position: Sitting; Cuff Location : Left Arm; Cuff Size: Standard 05-30-2015 14:18-0500 Heart rate 86 /min Jojo Ryann Hobbs LPN [facility] [employer] Comment on above: Pattern: Regular 05-30-2015 14:18-0500 Systolic blood pressure 119 mm[Hg] Jojo Ryann Hobbs LPN [facility] [employer] Comment on above: Patient Position: Sitting; Cuff Location : Left Arm; Cuff Size: Standard 03-04-2014 13:23-0400 Body height 167.64 cm Jina Wall LPN [facility] [employer] 03-04-2014 13:23-0400 Body mass index (BMI) [Ratio] 26.95 kg/m2 Jina Wall LPN [facility] [employer] 03-04-2014 13:23-0400 Body surface area Derived from formula 1.85 m2 Jina Wall LPN [facility] [employer] 03-04-2014 13:23-0400 Body weight 75.75 kg Jina Wall LPN [facility], [facility].; [place] [facility] 03-04-2014 13:23-0400 Diastolic blood pressure 85 mm[Hg] Jina Mae MUJICA [facility], [facility].; [place] [facility] Comment on above: Patient Position: Sitting; Cuff Location : Left Arm; Cuff Size: Standard 03-04-2014 13:23-0400 Heart rate 91 /min Jina Wall LPN [facility], [facility].; [place] [employer] Comment on above: Pattern: Regular 03-04-2014 13:23-0400 Systolic blood pressure 126 mm[Hg] Jina Mae [facility] [place] [employer] Comment on above: Patient Position: Sitting; Cuff Location : Left Arm; Cuff Size: Standard 02-27-2014 10:20-0400 Body height 167.64 cm Jina Wall LPN [facility], [facility] [place] [facility] 02-27-2014 10:20-0400 Body mass index (BMI) [Ratio] 26.8 kg/m2 Jina Wall LPN [facility], [facility].; [place] [employer] 02-27-2014 10:20-0400 Body surface area Derived from formula 1.85 m2 Jina Wall BAND SHOVER [facility], [facility].; [facility] [employer] 02-27-2014 10:20-0400 Body temperature 98 [degF] Jina Wall BAND [facility]OVER [facility] [employer] Comment on above: Method: Tympanic 02-27-2014 10:20-0400 Body weight 75.33 kg Jina Wall LPN [place] [facility] [employer] 02-27-2014 10:20-0400 Diastolic blood pressure 79 mm[Hg] Jina Wall LPN [place] [employer] Comment on above: Patient Position: Sitting; Cuff Location : Left Arm; Cuff Size: Standard 02-27-2014 10:20-0400 Heart rate 84 /min Jina Wall LPN [facility], Inc[facility], [employer]. Comment on above: Pattern: Regular 02-27-2014 10:20-0400 Systolic blood pressure 135 mm[Hg] Jina Wall LPN [facility], [facility].; [place] [employer], [employer]. Comment on above: Patient Position: Sitting; Cuff Location : Left Arm; Cuff Size: Standard 01-07-2014 13:37-0400 Body temperature 98.9 [degF] Neilee L Vess BAND SHOVER [facility], [facility].; [facility], [employer]. Comment on above: Method: Tympanic 01-07-2014 13:37-0400 Body weight 73.48 kg Neilee L Vess [employer] [place] [facility], [employer]. 01-07-2014 13:37-0400 Diastolic blood pressure 95 mm[Hg] Neilee L Vess [employer] [place] [employer], [facility].; [facility], [employer]. Comment on above: Patient Position: Sitting; Cuff Location : Right Arm; Cuff Size: Standard 01-07-2014 13:37-0400 Heart rate 93 /min Neilee L Vess BAND SHOVER [facility], [employer]. Comment on above: Pattern: Regular 01-07-2014 13:37-0400 Systolic blood pressure 139 mm[Hg] Neilee L Vess [employer] [place] [facility], [facility].; [facility], [employer]. Comment on above: Patient Position: Sitting; Cuff Location : Right Arm; Cuff Size: Standard 08-13-2013 09:56-0400 Body height 167.64 cm Jojo Hobbs LPN [facility], Inc[facility] [place] [employer], [employer]. 08-13-2013 09:56-0400 Body mass index (BMI) [Ratio] 25.66 kg/m2 Jojo Hobbs LPN [place] [facility], [employer]. 08-13-2013 09:56-0400 Body surface area Derived from formula 1.81 m2 Jojo Hobbs LPN [place] [facility], [employer]. 08-13-2013 09:56-0400 Body weight 72.12 kg Jojo Hobbs LPN [place] [employer] [place] 08-13-2013 09:56-0400 Diastolic blood pressure 88 mm[Hg] Jojo Ryann Parthenon [employer] [facility]. Comment on above: Patient Position: Sitting; Cuff Location : Left Arm; Cuff Size: Standard 08-13-2013 09:56-0400 Heart rate 85 /min Jojo Ryann Hobbs [employer] [facility] [employer]. Comment on above: Pattern: Regular 08-13-2013 09:56-0400 Systolic blood pressure 120 mm[Hg] Jojo Ryann BarryAnjel [employer]. Comment on above: Patient Position: Sitting; Cuff Location : Left Arm; Cuff Size: Standard 03-02-2013 14:05-0400 Body height 167.64 cm Terra Techke Sasha PA-C Work Phone: [employer] 03-02-2013 14:05-0400 Body mass index (BMI) [Ratio] 26.24 kg/m2 BriefcaseSasha PA-C Work Phone: [employer] 03-02-2013 14:05-0400 Body surface area Derived from formula 1.83 m2 Luke Sasha PA-C Work Phone: [employer] 03-02-2013 14:05-0400 Body temperature 98.4 [degF] Luke Sasha PA-C Work Phone: [employer] Comment on above: Method: Tympanic 03-02-2013 14:05-0400 Body weight 73.76 kg Luke Sasha PA-C Work Phone: [employer] 03-02-2013 14:05-0400 Diastolic blood pressure 76 mm[Hg] Luke Sasha PA-C Work Phone: [employer] Comment on above: Patient Position: Sitting; Cuff Location : Left Arm; Cuff Size: Standard 03-02-2013 14:05-0400 Heart rate 83 /min Luke Sasha PA-C Work Phone: [facility] [employer]. Comment on above: Pattern: Regular 03-02-2013 14:05-0400 Systolic blood pressure 131 mm[Hg] Luke Sasha PA-C Work Phone: [facility] [employer]. Comment on above: Patient Position: Sitting; Cuff Location : Left Arm; Cuff Size: Standard 10-23-2012 14:04-0400 Body height 167.64 cm Luke Sasha PA-C Work Phone: [facility].; [employer]. 10-23-2012 14:04-0400 Body mass index (BMI) [Ratio] 25.02 kg/m2 Luke Sasha PA-C Work Phone: [employer] [employer] 10-23-2012 14:04-0400 Body surface area Derived from formula 1.79 m2 Luke Sasha PA-C Work Phone: [employer].; [employer]. 10-23-2012 14:04-0400 Body weight 70.31 kg Luke Sasha PA-C Work Phone: [employer].; [employer]. 10-23-2012 14:04-0400 Diastolic blood pressure 85 mm[Hg] Luke Sasha PA-C Work Phone: [employer].; [employer]. Comment on above: Patient Position: Sitting; Cuff Location : Right Arm; Cuff Size: Standard 10-23-2012 14:04-0400 Heart rate 75 /min Luke Sasha PA-C Work Phone: [facility] [employer] Comment on above: Pattern: Regular 10-23-2012 14:04-0400 Systolic blood pressure 133 mm[Hg] Luke Sasha PA-C Work Phone: [employer] Comment on above: Patient Position: Sitting; Cuff Location : Right Arm; Cuff Size: Standard 02-28-2012 10:00-0400 Body height 167.64 cm Luke Sasha PA-C Work Phone: [employer] 02-28-2012 10:00-0400 Body mass index (BMI) [Ratio] 24.53 kg/m2 Luke Sasha PA-C Work Phone: [employer] 02-28-2012 10:00-0400 Body surface area Derived from formula 1.78 m2 Luke Sasha PA-C Work Phone: [employer] 02-28-2012 10:00-0400 Body temperature 97.4 [degF] Luke Sasha PA-C Work Phone: [employer] Comment on above: Method: Tympanic 02-28-2012 10:00-0400 Body weight 68.95 kg Luke Sasha PA-C Work Phone: [employer]. 02-28-2012 10:00-0400 Diastolic blood pressure 75 mm[Hg] Luke Sasha PA-C Work Phone: [employer] Comment on above: Patient Position: Sitting; Cuff Location : Left Arm; Cuff Size: Standard 02-28-2012 10:00-0400 Heart rate 77 /min Luke Sasha PA-C Work Phone: [employer] [facility] Comment on above: Pattern: Regular 02-28-2012 10:00-0400 Systolic blood pressure 132 mm[Hg] Khadar Baez PA-C Work Phone: [employer] [employer]. Comment on above: Patient Position: Sitting; Cuff Location : Left Arm; Cuff Size: Standard 04-02-2011 14:34-0500 Body height 167.64 cm Pricilla C Ryley [employer] 04-02-2011 14:34-0500 Body mass index (BMI) [Ratio] 24.44 kg/m2 Pricilla C Ryley [employer].; [employer] 04-02-2011 14:34-0500 Body surface area Derived from formula 1.78 m2 Pricilla C [place] [employer]. 04-02-2011 14:34-0500 Body weight 68.68 kg Pricilla C [place] [employer]. 04-02-2011 14:34-0500 Diastolic blood pressure 67 mm[Hg] Pricilla C [place] [employer] Comment on above: Patient Position: Sitting; Cuff Location : Right Arm; Cuff Size: Large 04-02-2011 14:34-0500 Heart rate 69 /min Pricilla C [place] [employer]. Comment on above: Pattern: Regular 04-02-2011 14:34-0500 Systolic blood pressure 107 mm[Hg] Pricilla C [place] [employer]. Comment on above: Patient Position: Sitting; Cuff Location : Right Arm; Cuff Size: Large 08-13-2010 13:45-0400 Body height 166.37 cm Pricilla C Ryley [employer] 08-13-2010 13:45-0400 Body mass index (BMI) [Ratio] 25.14 kg/m2 Pricilla C [place] [employer] 08-13-2010 13:45-0400 Body surface area Derived from formula 1.78 m2 Pricilla Donita Mol[place] B[place] [facility]OVER [facility], [facility].; [facility] [facility]. 08-13-2010 13:45-0400 Body temperature 96.8 [degF] Pricilla Donita MolinaRyley BAND SHOVER [facility], Inc.; [employer], [employer]. Comment on above: Method: Tympanic 08-13-2010 13:45-0400 Body weight 69.58 kg Pricilla Donita Hedrick [facility] [employer] 08-13-2010 13:45-0400 Diastolic blood pressure 77 mm[Hg] Pricilla Donita MolinaRyley [facility], [employer]. Comment on above: Patient Position: Sitting; Cuff Location : Left Arm; Cuff Size: Standard 08-13-2010 13:45-0400 Heart rate 82 /min Pricilla Donita Hedrick [facility], [employer].; [employer]. Comment on above: Pattern: Regular 08-13-2010 13:45-0400 Systolic blood pressure 113 mm[Hg] Pricilla Donita [place] [employer]. Comment on above: Patient Position: Sitting; Cuff Location : Left Arm; Cuff Size: Standard Encounters Encounter Date Encounter Type Care Provider Facility Start: 11-13-2024 End: 11-13-2024 ambulatory No Primary Care Physician -Laboratory Start: 11-13-2024 End: 11-13-[address] Naomie Brewer MD -Laboratory Work Phone: Start: 11-13-2024 End: 11-13-2024 ambulatory Naomie Brewer Facility:[facility] Start: 10-03-2024 End: 10-03-2024 ambulatory No Primary Care Physician [facility] Work Phone: Start: 10-03-2024 End: 10-03-2024 Patient encounter procedure Rekha WIGGINS -Laboratory Work Phone: Start: 10-03-2024 End: 10-03-2024 ambulatory Khadar Baez Facility:[facility] Start: 09-26-2024 End: 09-26-2024 Office outpatient visit 15 minutes Khadar WIGGINS-C [facility] Start: 08-23-2024 End: 08-23-2024 ambulatory IFTIKHAR LUIS Work Phone: [facility] Work Phone: Start: 08-23-2024 End: 08-23-2024 Patient encounter procedure IFTIKHAR JORDAND Work Phone: -Laboratory Work Phone: Start: 08-23-2024 End: 08-23-2024 ambulatory Khadar Baez Facility:[facility] Start: 08-20-2024 End: 08-20-2024 ambulatory IFTIKHAREUGENIO CLEARYNARD Work Phone: [facility] Work Phone: Start: 08-20-2024 End: 08-20-2024 Patient encounter procedure Rekha Raymond PA -Laboratory Work Phone: Start: 08-20-2024 End: 08-20-2024 ambulatory No Primary Care Physician Facility:[facility] Start: 08-02-2024 End: 08-02-2024 Initial preventive medicine new pt age 18-39yrs Khadar Baez PA-C [facility]: [facility] Start: 08-02-2024 End: 08-02-2024 Physical examination Amber [facility] Start: 07-03-2024 End: 07-03-[address] Adan Bear DO -Laboratory Work Phone: Start: 07-03-2024 End: 07-03-2024 ambulatory Adan Bear Facility:[facility] Start: 05-22-2024 End: 05-22-2024 Patient encounter procedure IFTIKHAR SMITH Work Phone: -Laboratory Work Phone: Start: 05-22-2024 End: 05-22-2024 ambulatory No Primary Care Physician Facility:[facility] Start: 04-03-2024 End: 04-03-2024 ambulatory No Primary Care Physician Facility:[facility] Start: 03-26-2024 End: 03-26-2024 ambulatory Marquita Gross NP Facility:[facility] Start: 02-08-2024 End: 02-08-2024 ambulatory Adan Bear Facility:[facility] Start: 01-05-2024 End: 01-05-2024 ambulatory No Primary Care Physician Facility:[facility] Start: 11-12-2022 End: 11-12-2022 ambulatory [facility] Work Phone: Start: 11-12-2022 End: 11-12-2022 Patient encounter procedure [facility]-Laboratory Work Phone: Start: 07-19-2022 End: 07-19-2022 ambulatory [facility] Work Phone: Start: 07-19-2022 End: 07-19-2022 Patient encounter procedure [facility]-Laboratory Start: 06-03-2022 End: 06-03-2022 Patient encounter procedure [facility]-Laboratory Start: 05-11-2022 End: 05-11-2022 ambulatory No Primary Care Physician [facility] Work Phone: Start: 05-11-2022 End: 05-11-2022 Patient encounter procedure No Primary Care Physician [facility]-Laboratory Start: 04-20-2022 End: 04-20-2022 ambulatory No Primary Care Physician [facility] Work Phone: Start: 04-20-2022 End: 04-20-2022 Patient encounter procedure No Primary Care Physician [facility]-Laboratory Start: 03-01-2022 End: 03-01-2022 Patient encounter procedure No Primary Care Physician [facility]-Laboratory Start: 02-08-2022 End: 02-08-[address] Roly Gallardo Work Phone: [facility] Work Phone: Start: 02-08-2022 End: 02-08-[address] [facility]: 02-02-2022 End: 02-02-[address] Roly Gallardo Work Phone: [facility] Start: 01-19-2022 End: 01-19-[address] [facility] Start: 12-08-2021 End: 12-08-2021 Telephone follow-up Khadar Baez PA-C Work Phone: [facility] Start: 12-04-2021 Non-patient / Non-visit Dr. Yodit Gallardo Work Phone: [facility] Start: 12-03-2021 Non-patient / Non-visit Dr. Yodit Gallardo Work Phone: [facility] Start: 12-03-2021 End: 12-04-2021 Evaluation and management of inpatient Dr. Roly Gallardo Work Phone: [facility] Start: 11-26-2021 End: 11-26-[address] Roly Glalardo Work Phone: [facility] Start: 11-19-2021 End: 11-19-[address] [facility] Start: 11-10-2021 End: 11-10-[address] Roly Gallardo Work Phone: [facility] Start: 11-10-2021 End: 11-10-[address] [facility] Start: 10-28-2021 End: 10-28-[address] Roly Gallardo Work Phone: [facility] Start: 10-15-2021 End: 10-15-[address] Roly Gallardo Work Phone: [facility] Start: 10-02-2021 End: 10-02-[address] Roly Gallardo Work Phone: [facility] Start: 09-16-2021 End: 09-16-[address] Roly Gallardo Work Phone: [facility] Start: 09-02-2021 End: 09-02-[address] Roly Gallardo Work Phone: [facility] Start: 08-19-2021 End: 08-19-[address] [facility] Start: 08-17-2021 End: 08-17-[address] [facility] Start: 08-03-2021 End: 08-03-[address] Roly Gallardo Work Phone: [facility] Start: 07-06-2021 End: 07-06-[address] [facility] Start: 06-29-2021 End: 06-29-[address] [facility] Start: 06-08-2021 End: 06-08-[address] Roly Gallardo Work Phone: [facility] Start: 05-29-2021 End: 05-29-[address] Roly Gallardo Work Phone: [facility] Start: 05-12-[address] Roly Gallardo Work Phone: [facility]-Laboratory, [facility] Start: 05-11-[address] Roly Gallardo Work Phone: [facility], [facility] Start: 05-11-2021 End: 05-11-[address] Roly Gallardo Work Phone: [facility] Start: 10-29-2020 End: 10-29-2020 ambulatory [facility] Start: 10-23-2020 End: 10-23-2020 Office outpatient visit 15 minutes Luke Sasha PA-C Work Phone: [employer] Start: 05-19-2020 End: 08-13-2020 ambulatory [facility] Start: 03-27-2020 End: 05-15-2020 ambulatory [facility] Start: 01-10-2020 End: 01-10-2020 Office outpatient visit 15 minutes Luke Sasha PA-C Work Phone: [employer] Start: 11-19-2019 End: 11-19-2019 Orders Luke Sasha PA-C Work Phone: [employer]. Start: 11-06-2019 End: 11-06-2019 Office outpatient visit 15 minutes Luke Sasha PA-C Work Phone: [employer] Start: 05-14-2019 End: 05-14-2019 Office outpatient visit 15 minutes Luke Sasha PA-C Work Phone: [employer] Start: 01-24-2019 End: 01-24-2019 Telephone follow-up Luke Sasha PA-C Work Phone: [employer] Start: 12-27-2018 End: 12-27-2018 Office outpatient visit 10 minutes Luke Sasha PA-C Work Phone: [facility]. Start: 11-27-2018 End: 11-27-2018 Office outpatient visit 15 minutes Luke Sasha PA-C Work Phone: [facility] [employer]. Start: 11-24-2018 End: 11-24-2018 Orders Luke Sasha PA-C Work Phone: [facility]. Start: 11-24-2018 End: 11-24-2018 Office outpatient visit 15 minutes Luke Sasha PA-C Work Phone: [facility]. Start: 11-24-2018 End: 11-27-2018 Orders Luke Sasha PA-C Work Phone: [facility]. Start: 09-20-2018 End: 09-20-2018 Telephone follow-up Luke Sasha PA-C Work Phone: [employer] Start: 04-24-2018 Patient encounter procedure [facility] Start: 11-10-2017 End: 11-10-2017 Office outpatient visit 15 minutes Luke Sasha PA-C Work Phone: [facility]. Start: 02-22-2017 End: 02-22-2017 Medication Luke Sasha PA-C Work Phone: [facility]. Start: 09-16-2016 End: 09-16-2016 Periodic preventive med est patient 18-39 yrs Luke Sasha PA-C Work Phone: [facility] [employer]. Start: 09-06-2016 End: 09-07-2016 Orders Luke Sasha PA-C Work Phone: [facility]. Start: 08-19-2016 End: 08-20-2016 Orders Luke Sasha PA-C Work Phone: [employer] Start: 12-22-2015 End: 12-22-2015 Patient encounter procedure Luke Sasha PA-C Work Phone: [employer] Start: 12-15-2015 End: 12-15-2015 Patient encounter procedure Luke Sasha PA-C Work Phone: [employer] Start: 05-30-2015 End: 05-30-2015 Periodic preventive med est patient 18-39 yrs Luke Sasha PA-C Work Phone: [employer]. Start: 03-07-2014 End: 03-07-2014 Medication Luke Sasha PA-C Work Phone: [employer]. Start: 03-04-2014 End: 03-06-2014 Patient encounter procedure Luke Sasha PA-C Work Phone: [employer]. Start: 02-27-2014 End: 02-27-2014 Patient encounter procedure Luke Sasha PA-C Work Phone: [facility] [employer]. Start: 01-07-2014 End: 01-07-2014 Patient encounter procedure Luke Sasha PA-C Work Phone: [employer]. Start: 08-27-2013 End: 08-28-2013 Orders Luke Sasha PA-C Work Phone: [facility]. Start: 08-13-2013 End: 08-16-2013 Patient encounter procedure Luke Sasha PA-C Work Phone: [employer]. Start: 03-02-2013 End: 03-02-2013 Patient encounter procedure Luke Sasha PA-C Work Phone: [facility]. Start: 03-02-2013 End: 03-02-2013 Historical Summary Luke Sasha PA-C Work Phone: [facility] [employer]. Start: 10-23-2012 End: 10-24-2012 Patient encounter procedure Luke Sasha PA-C Work Phone: [facility] [employer]. Start: 02-28-2012 End: 02-28-2012 Patient encounter procedure Khadar Baez PA-C Work Phone: [facility] [employer] Start: 04-02-2011 End: 04-02-2011 Patient encounter procedure Khadar Baez PA-C Work Phone: [employer] Start: 08-13-2010 End: 08-14-2010 Patient encounter procedure Khadar Baez PA-C Work Phone: [employer] Physical examination Khadar barretor PA-C Work Phone: [employer] [facility] Procedures Date Procedure Procedure Detail Performing Clinician Start: 08-02-2024 End: 08-02-2024 Depression screening Khadar Baez PA-C Work Phone: Start: 08-02-2024 End: 08-02-2024 Scr dep neg, no plan reqd Khadar Randolph tler PA-C Work Phone: Start: 07-03-2024 Measurement of renal function No Primary Care Physician Comment on above: GFR Calc Start: 07-03-2024 Vitamin D, 25-hydrox y measurement No Primary Care Physician Comment on above: Vitamin D 25(OH) Sta tus Range Deficiency <20 ng/mL (50nmol/L) Insufficiency 20 - 30 ng/mL (50 - 75 nmol/L) Sufficiency 30 - 100 ng/mL (75 - 250 nmol/L) Toxicity >100 ng/mL (>250 nmol/L) Start: 05-29-2021 Ultrasound scan - obstetric Dr. Roly Gallardo Work Phone: Start: 05-11-[address] Koffi Gallardo Work Phone: Start: 10-23-2020 End: 11-04-2020 Mri spinal canal lumbar w/o contrast material Roly Galalrdo MD Work Phone: Start: 12-05-2018 End: 12-05-2018 Cholecystectomy Carola Jenkins RN Comment on above: Bisi Start: 12-15-2015 End: 12-15-2015 Incision & drainage abscess simple/single Roly Gallardo MD Work Phone: Start: 03-04-2014 End: 03-04-2014 Microscopic examination of cervical Papanicolaou smear Sandra Encinas LPN Comment on above: Normal. ASCUS HPV po sitive Group B Streptococcu s Culture Dr. Roly Gallardo Work Phone: Repair of clubbed fe et and stretching of the achilles tendon (bilateral) Carola Jenkins RN Repair of clubbed fe et and stretching of the achilles tendon (bilateral) Amber Koo CCMA Viral antigen assay Dr. David Gallardo Work Phone: Plan of Treatment Date Care Activity Detail Author Start: 11-13-2024 In-vitro immunologic test [facility] Start: 08-23-[address] [facility] Start: 08-02-2024 Lipid panel LIPID PANEL ([id number]) Start: 02-Aug-2024 11:19-04:00 [facility] Start: 08-02-2024 Comprehensive metabo lic panel CMP w/ GFR* ([id number]) Start: 02-Aug-2024 11:19-04:00 Request [employer] [facility] [place].; [facility] Start: 12-04-2021 Patient discharge [facility] Work Phone: Start: 12-04-[address] [facility] Work Phone: Start: 12-03-2021 Administration of medication [facility] Work Phone: Start: 12-03-2021 Application of ice c ollar, cap or bag [facility] Work Phone: Start: 12-03-2021 Catheterization of vein [facility] Work Phone: Start: 12-03-2021 Introduction of urin osmel catheter [facility] Work Phone: Start: 12-03-2021 Measuring intake and output [facility] Work Phone: Start: 12-03-2021 Notification of physician [facility] Work Phone: Start: 12-03-2021 Procedure discontinued [facility] Work Phone: Start: 12-03-2021 Provision of activit y privileges [facility] Work Phone: Start: 12-03-2021 Vital signs measurements [facility] Work Phone: Start: 12-03-[address] [facility] Work Phone: Start: 12-03-2021 Admission procedure [facility] Work Phone: Hepatitis A virus Ig M Ab [Presence] in Serum [facility] Hepatitis B core ant ibody measurement, IgM type [facility] Hepatitis B surface antigen measurement [facility] Hepatitis C antibody measurement [facility] Mullerian inhibiting substance [Mass/volume] in Serum or Plasma [facility] Mycobacterium tuberc ulosis tuberculin stimulated gamma interferon [Presence] in Blood [facility] Patient referral [facility] Work Phone: Immunizations Immunization Date Immunization Notes Care Provider [facility] 07-05-2018 tetanus toxoid, reduced diphtheria toxoid, and acellular pertussis vaccine, adsorbed Dr. Roly Gallardo Work Phone: [facility] 07-05-2018 diphtheria, tetanus toxoids and acellular pertussis vaccine, unspecified formulation Dr. Roly Gallardo Work Phone: [facility] Work Phone: 03-04-2014 tetanus toxoid, reduced diphtheria toxoid, and acellular pertussis vaccine, adsorbed Khadar WIGGINS-Donita Work Phone: [facility], [employer] Comment on above: Site: Deltoid (Right )VIS Given: * TDAP, Td (09/21/2012) 10-02-2002 measles, mumps and rubella virus vaccine Khadar WIGGINS-Donita Work Phone: [facility], [employer] 11-24-1995 diphtheria, tetanus toxoids and acellular pertussis vaccine, 5 pertussis antigens Luke Sasha PA-C Work Phone: [facility] [employer] [facility].; [facility] 11-24-1995 poliovirus vaccine, inactivated Luke Sasha PA-C Work Phone: [facility] 08-26-1992 diphtheria, tetanus toxoids and acellular pertussis vaccine, 5 pertussis antigens Luke Sasha PA-C Work Phone: [facility] 08-26-1992 poliovirus vaccine, inactivated Luke Sasha PA-C Work Phone: [facility].; [facility] 01-03-1992 measles, mumps and rubella virus vaccine Luke Sasha PA-C Work Phone: [facility] [employer] [facility].; [facility] 06-18-1991 diphtheria, tetanus toxoids and acellular pertussis vaccine, 5 pertussis antigens Luke Sasha PA-C Work Phone: [facility].; [facility] 03-02-1991 diphtheria, tetanus toxoids and acellular pertussis vaccine, 5 pertussis antigens Luke Sasha PA-C Work Phone: [facility].; [facility] 03-02-1991 haemophilus influenz ae type b vaccine, PRP-T conjugate Luke Sasha PA-C Work Phone: [facility] [employer] [facility].; [facility] [employer] [facility] 03-02-1991 poliovirus vaccine, inactivated Luke Sasha PA-C Work Phone: [facility] [employer] [facility].; [facility] 1990 diphtheria, tetanus toxoids and acellular pertussis vaccine, 5 pertussis antigens Luke Sasha PA-C Work Phone: [facility] [employer] [facility].; [facility] 1990 haemophilus influenz ae type b vaccine, PRP-T conjugate Khadar Baez PA-C Work Phone: [facility].; [facility] 1990 poliovirus vaccine, inactivated Khadar Baez PA-C Work Phone: [facility].; [facility]. Payers Date Payer Category Payer Medicaid [id number] 2024 Unknown [id number] 2024 Self-pay [id number] 2023 Unknown [id number] 2013 Unknown [id number] 1990 Unknown [id number] 2.16.8 [id number] 1990 Unknown [id number] 2.16.84 [id number] 1990 Unknown [id number] 2.16.84 [id number] 1990 Unknown [id number] 2.16.84 [id number] Private Health Insurance [id number] Unknown [id number] Unknown ANTHEM Unknown [id number] 2.16.8 [id number] Unknown [id number] 2.16.8 [id number] Unknown [id number] 2.16.8 [id number] Unknown [id number] 2.16.8 [id number] Unknown [id number] 2.16.8 [id number] Unknown [id number] 2.16.8 [id number] Unknown [id number] 2.16.8 [id number] Unknown [id number] 2.16.8 [id number] Unknown [id number] 2.16.8 [id number] Unknown [id number] 2.16.8 [id number] Social History Date Type Detail Facility Start: 08-03-2021 End: 02-02-2022 Tobacco smoking status OHIS Unknown if ever smoked [facility] Start: 12-04-[address] [facility] Start: 12-04-2018 With Family [facility] Start: 09-19-2018 Non-smoker [facility] Start: 1990 Sex Assigned At Female W [facility] Alcohol Use: Alcohol Use: ; Occasional alcohol use. [facility].; [facility] Caffeine Use Caffeine Use [employer] Marital status: Marital status: ; Single. [employer], [employer], [employer] Tobacco Use: Tobacco Use: ; F ormer smoker. [facility].; [employer] Smokes tobacco daily [employer] [employer], [employer] Work Phone: Smokes < 1 pack of cigarettes per day [facility] [employer], [employer] Work Phone: Start: 03-23-2023 Ex-smoker [facility] Start: 08-24-2024 End: 08-28-2024 Sex Female (finding) [facility] Medical Equipment Procedure Code Equipment Code Equipment Origin al Text Equipment Identifier Dates Blood Sugar Diagnostic (Blood Glucose Test) strip Start: 08-21-2021 Lancets Start: 08-21-2021 Blood Sugar Diagnostic (Blood Glucose Test) strip Start: 08-21-2021 Lancets Start: 08-21-2021 Blood Sugar Diagnostic (Blood Glucose Test) strip Start: 08-21-2021 Lancets Start: 08-21-2021 Blood Sugar Diagnostic (Blood Glucose Test) strip Start: 08-21-2021 Lancets Start: 08-21-2021 Blood Sugar Diagnostic (Blood Glucose Test) strip Start: 08-21-2021 Lancets Start: 08-21-2021 Blood Sugar Diagnostic (Blood Glucose Test) strip Start: 08-21-2021 Lancets Start: 08-21-2021 Blood Sugar Diagnostic (Blood Glucose Test) strip Start: 08-21-2021 End: 02-02-2022 Lancets Start: 08-21-2021 End: 02-02-2022 Blood Sugar Diagnostic (Blood Glucose Test) strip Start: 08-21-2021 End: 02-02-2022 Lancets Start: 08-21-2021 End: 02-02-2022 Blood Sugar Diagnostic (Blood Glucose Test) strip Start: 08-21-2021 End: 02-02-2022 Lancets Start: 08-21-2021 End: 02-02-2022 Blood Sugar Diagnostic (Blood Glucose Test) strip Start: 08-21-2021 End: 02-02-2022 Lancets Start: 08-21-2021 End: 02-02-2022 Blood Sugar Diagnostic (Blood Glucose Test) strip Start: 08-21-2021 End: 02-02-2022 Lancets Start: 08-21-2021 End: 02-02-2022 Blood Sugar Diagnostic (Blood Glucose Test) strip Start: 08-21-2021 End: 02-02-2022 Lancets misc Start: 08-21-2021 End: 02-02-2022 Blood Sugar Diagnostic (Blood Glucose Test) strip Start: 08-21-2021 End: 02-02-2022 Lancets misc Start: 08-21-2021 End: 02-02-2022 Blood Sugar Diagnostic (Blood Glucose Test) strip Start: 08-21-2021 End: 02-02-2022 Lancets misc Start: 08-21-2021 End: 02-02-2022 Blood Sugar Diagnostic (Blood Glucose Test) strip Start: 08-21-2021 End: 02-02-2022 Lancets misc Start: 08-21-2021 End: 02-02-2022 Goals Date Patient Goal Desired Activity /State Functional Status Date Assessment Result Facility 12-04-2021 Functional status Activity Ability Indepe ramónnt [facility] Work Phone: Clinical Note 05-11-2021 Note Date & Type Note Facility 05-11-2021 Note [facility] Work Phone: Pap Smear Specimen Adequacy May 12, 2021 12:59am Comment Satisfactory for evaluation. Endocervical and/or squamous metaplasticcells (endocervical component) are present. Comment on above: Satisfactory for pawan luation. Endocervical and/or squamous metaplasticcells (endocervical component) are present. Clinical Note 05-11-2021 Note Date & Type Note Facility 05-11-2021 Note [facility] Work Phone: Pap Smear Specimen Adequacy May 12, 2021 12:59am Comment Satisfactory for evaluation. Endocervical and/or squamous metaplasticcells (endocervical component) are present. Comment on above: Satisfactory for pawan luation. Endocervical and/or squamous metaplasticcells (endocervical component) are present. Evaluation note Note Date & Type Note Facility Evaluation note Diagnosis Onset Date Abuse acute Alopecia acute Artificial insemination acut e Hypothyroidism acute acute Supervision of high risk pre gnancy, antepartum acute Supervision of high risk pre gnancy due to social problems resolved Abuse acute Alopecia acute Artificial insemination acut e Hypothyroidism acute acute Supervision of high risk pre gnancy, antepartum acute Supervision of high risk pre gnancy due to social problems resolved Abuse acute Artificial insemination acut e acute Supervision of high risk pre gnancy, antepartum acute Abuse acute Alopecia acute Artificial insemination acut e 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 Hypothyroidism acute acute Supervision of high risk pre gnancy, antepartum acute [facility] Work Phone: Evaluation note Note Date & Type Note Facility Evaluation note Diagnosis Onset Date Abuse acute Artificial insemination acut e acute Supervision of high risk pre gnancy, antepartum acute Abuse acute Alopecia acute Artificial insemination acut e 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 Hypothyroidism acute acute Supervision of high risk pre gnancy, antepartum acute Abnormal glucose affecting acute Abuse acute Alopecia acute Artificial insemination acut e 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 Hypothyroidism acute acute Supervision of high risk pre gnancy, antepartum acute Abnormal glucose affecting acute Abuse acute Alopecia acute Artificial insemination acut e 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 Hypothyroidism acute acute Supervision of high risk pre gnancy, antepartum acute Abnormal glucose affecting acute Abuse acute Alopecia acute Artificial insemination acut e 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 Hypothyroidism acute acute Supervision of high risk pre gnancy, antepartum acute Tetanus, diphtheria, and jemal llular pertussis (Tdap) vaccination declined acute Abnormal glucose affecting acute Abuse acute Alopecia acute Artificial insemination acut e 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 Hypothyroidism acute acute Supervision of high risk pre gnancy, antepartum acute Tetanus, diphtheria, and jemal llular pertussis (Tdap) vaccination declined acute Abnormal glucose affecting acute Abuse acute Alopecia acute Artificial insemination acut e 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 Hypothyroidism acute acute Supervision of high risk pre gnancy, antepartum acute Tetanus, diphtheria, and jemal llular pertussis (Tdap) vaccination declined acute [facility] Work Phone: Evaluation note Note Date & Type Note Facility Evaluation note Diagnosis Onset Date Abuse acute Alopecia acute Artificial insemination acut e 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 Hypothyroidism acute acute Supervision of high risk pre gnancy, antepartum acute Abnormal glucose affecting acute Abuse acute Alopecia acute Artificial insemination acut e 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 Hypothyroidism acute acute Supervision of high risk pre gnancy, antepartum acute Abnormal glucose affecting acute Abuse acute Alopecia acute Artificial insemination acut e 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 Hypothyroidism acute acute Supervision of high risk pre gnancy, antepartum acute Abnormal glucose affecting acute Abuse acute Alopecia acute Artificial insemination acut e 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 Hypothyroidism acute acute Supervision of high risk pre gnancy, antepartum acute Tetanus, diphtheria, and jemal llular pertussis (Tdap) vaccination declined acute Abnormal glucose affecting acute Abuse acute Alopecia acute Artificial insemination acut e 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 Hypothyroidism acute acute Supervision of high risk pre gnancy, antepartum acute Tetanus, diphtheria, and jemal llular pertussis (Tdap) vaccination declined acute Abnormal glucose affecting acute Abuse acute Alopecia acute Artificial insemination acut e 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 Hypothyroidism acute acute Supervision of high risk pre gnancy, antepartum acute Tetanus, diphtheria, and jemal llular pertussis (Tdap) vaccination declined acute Abnormal glucose affecting acute Abuse acute Alopecia acute Artificial insemination acut e 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 Hypothyroidism acute acute Supervision of high risk pre gnancy, antepartum acute Tetanus, diphtheria, and jemal llular pertussis (Tdap) vaccination declined acute [facility] Work Phone: Evaluation note Note Date & Type Note Facility Evaluation note Diagnosis Onset Date Abuse acute 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 Hypothyroidism acute Abnormal glucose affecting resolved Artificial insemination reso lved resolved Supervision of high risk pre gnancy, antepartum resolved Abuse acute 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 Hypothyroidism acute Abnormal glucose affecting resolved Artificial insemination reso lved resolved Supervision of high risk pre gnancy, antepartum resolved Abuse acute 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 Hypothyroidism acute Abnormal glucose affecting resolved Artificial insemination reso lved resolved Supervision of high risk pre gnancy, antepartum resolved Tetanus, diphtheria, and jemal llular pertussis (Tdap) vaccination declined resolved Abuse acute 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 Hypothyroidism acute Abnormal glucose affecting resolved Artificial insemination reso lved resolved Supervision of high risk pre gnancy, antepartum resolved Tetanus, diphtheria, and jemal llular pertussis (Tdap) vaccination declined resolved Abuse acute 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 Hypothyroidism acute Abnormal glucose affecting resolved Artificial insemination reso lved resolved Supervision of high risk pre gnancy, antepartum resolved Tetanus, diphtheria, and jemal llular pertussis (Tdap) vaccination declined resolved Abuse acute 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 Hypothyroidism acute Abnormal glucose affecting resolved Artificial insemination reso lved resolved Supervision of high risk pre gnancy, antepartum resolved Tetanus, diphtheria, and jemal llular pertussis (Tdap) vaccination declined resolved Abuse acute 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 Hypothyroidism acute Abnormal glucose affecting resolved Artificial insemination reso lved resolved Supervision of high risk pre gnancy, antepartum resolved Tetanus, diphtheria, and jemal llular pertussis (Tdap) vaccination declined resolved Abuse acute 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 Hypothyroidism acute Status post vaginal delivery acute Abnormal glucose affecting resolved Artificial insemination reso lved resolved Supervision of high risk pre gnancy, antepartum resolved Tetanus, diphtheria, and jemal llular pertussis (Tdap) vaccination declined resolved [facility] Work Phone: Evaluation note Note Date & Type Note Facility Evaluation note Diagnosis Onset Date Abuse acute 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 Hypothyroidism acute Abnormal glucose affecting resolved Artificial insemination reso lved resolved Supervision of high risk pre gnancy, antepartum resolved Tetanus, diphtheria, and jemal llular pertussis (Tdap) vaccination declined resolved Abuse acute 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 Hypothyroidism acute Abnormal glucose affecting resolved Artificial insemination reso lved resolved Supervision of high risk pre gnancy, antepartum resolved Tetanus, diphtheria, and jemal llular pertussis (Tdap) vaccination declined resolved Abuse acute 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 Hypothyroidism acute Abnormal glucose affecting resolved Artificial insemination reso lved resolved Supervision of high risk pre gnancy, antepartum resolved Tetanus, diphtheria, and jemal llular pertussis (Tdap) vaccination declined resolved Abuse acute 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 Hypothyroidism acute Abnormal glucose affecting resolved Artificial insemination reso lved resolved Supervision of high risk pre gnancy, antepartum resolved Tetanus, diphtheria, and jemal llular pertussis (Tdap) vaccination declined resolved Abuse acute 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 Hypothyroidism acute Status post vaginal delivery acute Abnormal glucose affecting resolved Artificial insemination reso lved resolved Supervision of high risk pre gnancy, antepartum resolved Tetanus, diphtheria, and jemal llular pertussis (Tdap) vaccination declined resolved Status post vaginal delivery acute [facility] Work Phone: Evaluation note Note Date & Type Note Facility Evaluation note Diagnosis Onset Date Status post vaginal delivery acute [facility] Work Phone: Evaluation note Note Date & Type Note Facility Evaluation note No assessment information availa [facility] Work Phone: Reason for referral (narrative) Note Date & Type Note Facility Reason for referral (narrative) No reason for referral information available [facility] Center Work Phone: Summary Purpose Family History No Family History Records Found Relationship Condition Age at Onset Recorded Date/T kelly mother Malignant neoplasm Unknown grandfather Cardiac disease Unknown Hypertension Unknown insomnia Status:Active Comments:Brother . No Known Family History Onset: 3 Status:Inactive insomnia Status:Active Comments:Brother . No Known Family History Onset: 3 Status:Inactive insomnia Status:Active Comments:Brother . No Known Family History Onset: 3 Status:Inactive insomnia Status:Active Comments:Brother . No Known Family History Onset: 3 Status:Inactive insomnia Status:Active Comments:Brother . No Known Family History Onset: 3 Status:Inactive insomnia Status:Active Comments:Brother . No Known Family History Onset: 3 Status:Inactive Advance Directives No Advanced Directives Records Found Advance Directive Response Recorded Date/ Time Living Will No December 04, 2018 9:15am Power of Instantizer Operator No December 04 9 9:15am Advance Directive Response Recorded Date/ Time Living Will No December 03, 2021 10:47am Power of Instantizer Operator No December 03 2 10:47am Advance Directive Response Recorded Date/ Time Living Will No December 03, 2021 9:47am Power of Instantizer Operator No December 03 9:47am Chief Complaint and Reason for Visit Chief Complaint NOB LMP 03/01/21 BLEEDING 14 WK OB 18WK OB 22WK OB 2 ORDERING DOCTORS gestational diabetes screening Reason for Visit Abuse Alopecia Artificial insemination Hypothyroidism Supervision of high risk , antepartum Supervision of high risk due to social problems Abuse Alopecia Artificial insemination Hypothyroidism Supervision of high risk , antepartum Supervision of high risk due to social problems Abuse Artificial insemination Supervision of high risk , antepartum Abuse Alopec[place] Artificial insemination Contracture of muscle of both hands Hypothyroidism Supervision of high risk , antepartum Chief Complaint 18WK OB 22WK OB 2 ORDERING DOCTORS gestational diabetes screening 26WK OB 28WK OB 30 WK OB 32 WK OB 34 WK OB Reason for Visit Abuse Artificial insemination Supervision of high risk , antepartum Abuse [place] Artificial insemination Contracture of muscle of both hands Hypothyroidism Supervision of high risk , antepartum Abnormal glucose affecting Abuse [place]pec[place] Artificial insemination Contracture of muscle of both hands Hypothyroidism Supervision of high risk , antepartum Abnormal glucose affecting Abuse [place] Artificial insemination Contracture of muscle of both hands Hypothyroidism Supervision of high risk , antepartum Abnormal glucose affecting Abuse [place] Artificial insemination Contracture of muscle of both hands Hypothyroidism Supervision of high risk , antepartum Tetanus, diphtheria, and acellular pertussis (Tdap) vaccination declined Abnormal glucose affecting Abuse Alopecia Artificial insemination Contracture of muscle of both hands Hypothyroidism Supervision of high risk , antepartum Tetanus, diphtheria, and acellular pertussis (Tdap) vaccination declined Abnormal glucose affecting Abuse Alopecia Artificial insemination Contracture of muscle of both hands Hypothyroidism Supervision of high risk , antepartum Tetanus, diphtheria, and acellular pertussis (Tdap) vaccination declined Chief Complaint 22WK OB 2 ORDERING DOCTORS gestational diabetes screening 26WK OB 28WK OB 30 WK OB 32 WK OB 34 WK OB 36 WK OB Reason for Visit Abuse Alopecia Artificial insemination Contracture of muscle of both hands Hypothyroidism Supervision of high risk , antepartum Abnormal glucose affecting Abuse [place] Artificial insemination Contracture of muscle of both hands Hypothyroidism Supervision of high risk , antepartum Abnormal glucose affecting Abuse [place] Artificial insemination Contracture of muscle of both hands Hypothyroidism Supervision of high risk , antepartum Abnormal glucose affecting Abuse [place] Artificial insemination Contracture of muscle of both hands Hypothyroidism Supervision of high risk , antepartum Tetanus, diphtheria, and acellular pertussis (Tdap) vaccination declined Abnormal glucose affecting Abuse Alopec[place] Artificial insemination Contracture of muscle of both hands Hypothyroidism Supervision of high risk , antepartum Tetanus, diphtheria, and acellular pertussis (Tdap) vaccination declined Abnormal glucose affecting Abuse Alopec[place] Artificial insemination Contracture of muscle of both hands Hypothyroidism Supervision of high risk , antepartum Tetanus, diphtheria, and acellular pertussis (Tdap) vaccination declined Abnormal glucose affecting Abuse Alopecia Artificial insemination Contracture of muscle of both hands Hypothyroidism Supervision of high risk , antepartum Tetanus, diphtheria, and acellular pertussis (Tdap) vaccination declined Chief Complaint 2 ORDERING DOCTORS gestational diabetes screening 26WK OB 28WK OB 30 WK OB 32 WK OB 34 WK OB 36 WK OB 38 WK OB VAG DELIVERY VAG DELIVERY VAG DELIVERY Reason for Visit Abuse Alopecia Contracture of muscle of both hands Hypothyroidism Abnormal glucose affecting Artificial insemination Supervision of high risk , antepartum Abuse Alopecia Contracture of muscle of both hands Hypothyroidism Abnormal glucose affecting Artificial insemination Supervision of high risk , antepartum Abuse Alopecia Contracture of muscle of both hands Hypothyroidism Abnormal glucose affecting Artificial insemination Supervision of high risk , antepartum Tetanus, diphtheria, and acellular pertussis (Tdap) vaccination declined Abuse Alopecia Contracture of muscle of both hands Hypothyroidism Abnormal glucose affecting Artificial insemination Supervision of high risk , antepartum Tetanus, diphtheria, and acellular pertussis (Tdap) vaccination declined Abuse Alopecia Contracture of muscle of both hands Hypothyroidism Abnormal glucose affecting Artificial insemination Supervision of high risk , antepartum Tetanus, diphtheria, and acellular pertussis (Tdap) vaccination declined Abuse Alopecia Contracture of muscle of both hands Hypothyroidism Abnormal glucose affecting Artificial insemination Supervision of high risk , antepartum Tetanus, diphtheria, and acellular pertussis (Tdap) vaccination declined Abuse Alopecia Contracture of muscle of both hands Hypothyroidism Abnormal glucose affecting Artificial insemination Supervision of high risk , antepartum Tetanus, diphtheria, and acellular pertussis (Tdap) vaccination declined Abuse Alopecia Contracture of muscle of both hands Hypothyroidism Status post vaginal delivery Abnormal glucose affecting Artificial insemination Supervision of high risk , antepartum Tetanus, diphtheria, and acellular pertussis (Tdap) vaccination declined Chief Complaint 32 WK OB 34 WK OB 36 WK OB 38 WK OB VAG DELIVERY VAG DELIVERY VAG DELIVERY 6wk pp, declined IUD Reason for Visit Abuse Alopecia Contracture of muscle of both hands Hypothyroidism Abnormal glucose affecting Artificial insemination Supervision of high risk , antepartum Tetanus, diphtheria, and acellular pertussis (Tdap) vaccination declined Abuse Alopecia Contracture of muscle of both hands Hypothyroidism Abnormal glucose affecting Artificial insemination Supervision of high risk , antepartum Tetanus, diphtheria, and acellular pertussis (Tdap) vaccination declined Abuse Alopecia Contracture of muscle of both hands Hypothyroidism Abnormal glucose affecting Artificial insemination Supervision of high risk , antepartum Tetanus, diphtheria, and acellular pertussis (Tdap) vaccination declined Abuse Alopecia Contracture of muscle of both hands Hypothyroidism Abnormal glucose affecting Artificial insemination Supervision of high risk , antepartum Tetanus, diphtheria, and acellular pertussis (Tdap) vaccination declined Abuse Alopecia Contracture of muscle of both hands Hypothyroidism Status post vaginal delivery Abnormal glucose affecting Artificial insemination Supervision of high risk , antepartum Tetanus, diphtheria, and acellular pertussis (Tdap) vaccination declined Status post vaginal delivery Chief Complaint 6wk pp, declined IUD Reason for Visit Status post vaginal delivery Chief Complaint E03.8, E55.9 Chief Complaint Other specified hypo thyroidism Additional Source Comments INFORMATION SOURCE (unrecogn ized section and content) DATE CREATED AUTHOR 04/26/2018 [facility] DATE CREATED AUTHOR AUTHOR'S ORGANIZ ATION 10/30/2020 [facility] DATE CREATED AUTHOR AUTHOR'S ORGANIZ ATION 08/04/2024 [facility] DATE CREATED AUTHOR AUTHOR'S ORGANIZ ATION 11/18/2024 [facility] Goals (unrecognized section and content) Goals may be documented in a n alternate sectionGoals may be documented in an alternate sectionGoals may be documented in an alternate sectionGoals may be documented in an alternate sectionGoals may be documented in an alternate sectionGoals may be documented in an alternate sectionGoals may be documented in an alternate sectionGoals may be documented in an alternate sectionGoals may be documented in an alternate sectionGoals may be documented in an alternate sectionGoals may be documented in an alternate sectionGoals may be documented in an alternate sectionGoals may be documented in an alternate section Care Teams (unrecognized sec tion and content) Team Status: Active Member Role Status Dates Dr. Roly Gallardo MD Family Provider Active No Primary Care Physician Primary Care Provider Active Team Status: Inactive Member Role Status Dates No Primary Care Physician Primary Care Provider Active Dr. Adan Bear DO Attending Provider, Referring Provider Active Team Status: Inactive Member Role Status Dates No Primary Care Physician Primary Care Provider Active Estelle Carbone MINE ENVIRONMENTAL ENGINEER, MINE ENVIRONMENTAL ENGINEER-C Attending Provider, Referring Pro vider Active Team Status: Inactive Member Role Status Dates No Primary Care Physician Primary Care Provider Active Estelle Carbone MINE ENVIRONMENTAL ENGINEER, MINE ENVIRONMENTAL ENGINEER-C Attending Provider Active Team Status: Active Member Role Status Dates Dr. Roly Gallardo MD Family Provider Active ROSALIE Escobar Primary Care Provider Active Team Status: Inactive Member Role Status Dates LUIS BUITRAGO Attending Provider Active Sta rt: May 22, 2024 End: May 22, 2024 LUIS BUITRAGO Referring Provider Active Sta rt: May 22, 2024 End: May 22, 2024 No Primary Care Physician Primary Care Provider Active Start: May 22, 2024 End: May 22, 2024 Team Status: Inactive Member Role Status Dates No Primary Care Physician Primary Care Provider Active Start: July 03, 2024 End: July 03, 2024 Dr. Adan Bear DO Attending Provider Active Start: July 03, 2024 End: July 03, 2024 Dr. Adan Bear DO Referring Provider Active Start: July 03, 2024 End: July 03, 2024 Team Status: Inactive Member Role Status Dates No Primary Care Physician Primary Care Provider Active Start: August 20, 2024 End: August 20, 2024 Segundo PA, PA Attending Provider Active Start: August 20, 2024 End: August 20, 2024 Segundo PA, PA Referring Provider Active Start: August 20, 2024 End: August 20, 2024 Team Status: Active Member Role Status Dates LUIS BUITRAGO Attending Provider Active Sta rt: August 23, 2024 LUIS BUITRAGO Referring Provider Active Sta rt: August 23, 2024 ROSALIE Escobar Primary Care Provider Active Start: August 23, 2024 Team Status: Inactive Member Role Status Dates LUIS BUITRAGO Attending Provider Active Sta rt: August 23, 2024 End: August 23, 2024 LUIS BUITRAGO Referring Provider Active Sta rt: August 23, 2024 End: August 23, 2024 ROSALIE Escobar Primary Care Provider Active Start: August 23, 2024 End: August 23, 2024 Team Status: Inactive Member Role Status Dates ROSALIE Escobar Primary Care Provider Active Start: October 03, 2024 End: October 03, 2024 Segundo PA, PA Attending Provider Active Start: October 03, 2024 End: October 03, 2024 Segundo PA, PA Referring Provider Active Start: October 03, 2024 End: October 03, 2024 Team Status: Active Member Role/Relationship Status Dates Dr. Roly Gallardo MD Family Provider Active ROSALIE Escobar Primary Care Provider Active Team Status: Inactive Member Role/Relationship Status Dates No Primary Care Physician Primary Care Provider Active Start: August 20, 2024 End: August 20, 2024 Segundo PA, PA Attending Provider Active Start: August 20, 2024 End: Vicenta 7th, 2025 Rekha Raymond PA, PA Referring Provider Active Start: August 20, 2024 End: August 20, 2024 Team Status: Inactive Member Role/Relationship Status Dates LUIS BUITRAGO Attending Provider Active Sta rt: August 23, 2024 End: August 23, 2024 LUIS BUITRAGO Referring Provider Active Sta rt: August 23, 2024 End: August 23, 2024 ROSALIE Escobar Primary Care Provider Active Start: August 23, 2024 End: August 23, 2024 Team Status: Inactive Member Role/Relationship Status Dates ROSALIE Escobar Primary Care Provider Active Start: October 03, 2024 End: October 03, 2024 ROSALIE Shahid Attending Provider Active Start: October 03, 2024 End: October 03, 2024 ROSALIE Shahid Referring Provider Active Start: October 03, 2024 End: October 03, 2024 Team Status: Inactive Member Role/Relationship Status Dates ROSALIE Escobar Primary Care Provider Active Start: November 13, 2024 End: November 13, 2024 Dr. Naomie Brewer MD Attending Provider Active S tart: November 13, 2024 End: November 13, 2024 Dr. Naomie Brewer MD Referring Provider Active S tart: November 13, 2024 End: November 13, 2024 FOR RECORDS PERTAINING TO PATIENTS WHO ARE OR HAVE BEEN ENROLLED IN A CHEMICAL DEPENDENCY/SUBSTANCEABUSE PROGRAM, SOME INFORMATION MAY BE OMITTED. This clinical summary was aggregated from multiple sources. Caution should be exercised in using it in the provision of clinical care. This summary normalizes information from multiple sources, and as a consequence, information in this document may materially change the coding, format and clinical context of patient data. In addition, data may be omitted in some cases. CLINICAL DECISIONS SHOULD BE BASED ON THE PRIMARY CLINICAL RECORDS. [facility] [employer] provides no warranty or guarantee of the accuracy or completeness of information in this document.
== END | disposition home or self-care (01) ==
PROVIDERS: PCP Physician Assistant; Referring Provider Internal Medicine Endocrinology, Diabetes & Metabolism; Visit Provider Internal Medicine Endocrinology, Diabetes & Metabolism
DX: E03.9 Hypothyroidism, unspecified (principal)
CPT/HCPCS: 36415; 80053; 82306; 84443

== ENCOUNTER → 2025-03-27 | Outpatient (CLI) | payer BC, SELFPAY ==
[2025-03-27 18:16] LABS: HIV Nonreactive (Nonreactive); Syphilis Antibodies Nonreactive (Nonreactive)
[2025-03-30 04:07] LABS: HCV Quant. RNA PCR HCV Not Detected IU/mL (.)
[2025-03-30 06:08] LABS: Chlamydia By Nucleic Acid AMP Negative (Negative); Gonococcus By Nucleic Acid AMP Negative (Negative)
== END | disposition home or self-care (01) ==
LOC: BWCLAB 13:34
PROVIDERS: PCP Physician Assistant; Visit Provider Nurse Practitioner Women's Health
DX: Z20.2 Contact with and (suspected) exposure to infections with a predominantly sexual mode of transmission (principal)
CPT/HCPCS: 36415; 86695; 86696; 86703; 86780; 87491; 87522; 87591